=== PATIENT | female | born 1955 | race Caucasian/White ===

== ENCOUNTER 2021-04-29 19:55 | Inpatient (IN) | payer OTHER ==
[~2021-04-29] VITALS: Ht 170.2 cm
[~2021-04-29 19:55] MED LIST: ACET-285 PO; GABA100C9 PO
[2021-04-29 23:27] LABS: Basophils # (auto) 0 10 ^3/uL (0-0.2); Basophils % (auto) 0.8 % (0.0-2.0); Eosinophils # (auto) 0.1 10 ^3/uL (0-0.8); Eosinophils % (auto) 1.2 % (0.0-7.0); Hematocrit 41.1 % (36.0-46.0); Hemoglobin 13.1 g/dL (12.2-16.2); Lymphocytes % (auto) 16.1 % (10.0-50.0); Mean Corpuscular Hemoglobin 28.3 pg (28.0-32.0); Mean Corpuscular Hgb Conc. 31.7 g/dL (32.0-36.0); Mean Corpuscular Volume 89.1 fL (80.0-100.0); Monocytes # (auto) 0.7 10 ^3/uL (0-1.3); Monocytes % (auto) 12.1 % (0.0-12.0); Neutrophils # (auto) 4.3 10 ^3/uL (1.6-8.6); Neutrophils % (auto) 69.8 % (37.0-80.0); Red Blood Cells 4.62 10^6/uL (4.0-5.20); Red Cell Distribution Width 17.7 % (11.8-14.3); White Blood Cell 6.2 10^3/uL (4.4-10.8)
[2021-04-29 23:41] LABS: INR 1.11 (0.9-1.15)
[2021-04-29 23:50] LABS: Albumin 2.1 g/dL (3.4-5.0); BUN/Creatinine Ratio 18.3; Calcium 8.5 mg/dL (8.5-10.1); Magnesium 2.2 mg/dL (1.6-2.6)
[2021-04-29 23:52] LABS: Potassium 6.2 mmol/L (3.5-5.1)
[2021-04-29 23:54] LABS: Bilirubin, Total 0.4 mg/dL (0.2-1.0); Total Protein 6.2 g/dL (6.4-8.2)
[2021-04-30] MEDS ORDERED: ENOXAPARIN SOD 100 MG/1 ML SYRINGE SC ONE
[2021-04-30] MEDS ORDERED: ALBUTEROL SULF 2.5 MG/0.5ML(0.5%) NEB SOLN NEB ONE
[2021-04-30] MEDS ORDERED: ASPirin 325 MG TAB PO ONE
[2021-04-30] MEDS ORDERED: SODIUM BICARBONATE 8.4% INJ 50ML SYRINGE IV ONE
[2021-04-30 02:45] LABS: Urine Amorphous Crystal FEW /hpf (None Seen); Urine Bacteria FEW /hpf (None Seen); Urine Blood TRACE /uL (Negative); Urine Hyaline Cast FEW /lpf (0 - 2); Urine Specific Gravity 1.018 (1.001-1.035); Urine WBC 2 /hpf (0 - 5)
[2021-04-30] MEDS ORDERED: FUROSEMIDE 40 MG/4 ML VIAL IV ONE (03:15)
[2021-04-30] MEDS ORDERED: NITROGLYCERIN 0.4 MG SL TAB SL PRN (06:45)
[2021-04-30] MEDS ORDERED: DEXTROSE (50%) 50ML SYRG IV PRN (06:45)
[2021-04-30] MEDS ORDERED: MORPHINE SULFATE INJECTION 2 MG/ML SYRG IV PRN (06:45)
[2021-04-30 08:13] LABS: BUN/Creatinine Ratio 18.4; Calcium 8.3 mg/dL (8.5-10.1)
[2021-04-30 08:28] LABS: Potassium 5.6 mmol/L (3.5-5.1)
[2021-04-30] MEDS: ACCU-CHEK COMFORT CURVE STRIP VI SCH ×4 (08:52→22:37)
[2021-04-30] MEDS: InsuLIN REG 1unit/0.01ml Soln (100units/ml) SC SCH ×4 (08:53→22:38)
[2021-04-30 09:29] LABS: Cholesterol 87 mg/dL (< 200); HDL Cholesterol 41 mg/dL (40-59); LDL Cholesterol 36 mg/dL (< 100); Triglycerides 123 mg/dL (< 150)
[2021-04-30] MEDS ORDERED: BUMETANIDE 2.5mg/10ml (0.25 mg/ml) INJ IV ONE (10:00)
[2021-04-30] MEDS ORDERED: ALBUMIN 25% 100 ML IV ONE (10:00)
[2021-04-30] MEDS: PANTOPRAZOLE 40 MG TAB PO SCH (10:46)
[2021-04-30] MEDS: METOPROLOL SUCCINATE XL 50 MG TAB PO SCH (10:47)
[2021-04-30 12:30] VITALS: BP 151/69
[2021-04-30 12:49] VITALS: BP 146/56
[2021-04-30 12:49] LABS: Alcohol, Urine < 3.0 mg/dL (0-10); Amphetamine Screen, Urine NEGATIVE (NEGATIVE); Barbiturate Scree,Urine NEGATIVE (NEGATIVE); Benzodiazephine Screen, Urine NEGATIVE (NEGATIVE); Cannabinoid Screen, Urine NEGATIVE (NEGATIVE); Cocaine Screen, Urine NEGATIVE (NEGATIVE); Opiate Scree,Urine NEGATIVE (NEGATIVE); Phencyclidine Screen, Urine NEGATIVE (NEGATIVE)
[2021-04-30 14:46] LABS: Magnesium 2.1 mg/dL (1.6-2.6)
[2021-04-30 14:48] VITALS: BP 146/56
[2021-04-30 14:49] LABS: Phosphorus 4.5 mg/dL (2.5-4.90)
[2021-04-30 14:56] LABS: Protein, Urine 351.4 mg/dL (0.0-11.9)
[2021-04-30 16:45] VITALS: BP 138/59
[2021-04-30] MEDS: FUROSEMIDE 20 MG/2 ML VIAL IV SCH (18:37)
[2021-04-30] MEDS ORDERED: FURO20TA3 PO (19:22)
[2021-04-30] MEDS ORDERED: SIMV-13 PO (19:22)
[2021-04-30] MEDS ORDERED: METO-158 PO (19:22)
[2021-04-30] MEDS ORDERED: DEXTROSE (50%) 50ML SYRG IV ONE ×2 (20:45)
[2021-04-30] MEDS ORDERED: CALCIUM GLUC 1,000mg/50ml-NS 50 ML IV ONE (20:45)
[2021-04-30] MEDS ORDERED: SODIUM BICARBONATE 8.4 % INJ 50ML VIAL IV ONE (20:45)
[2021-04-30] MEDS ORDERED: SODIUM ZIRCONIUM CYCL 10 GM PAK PO ONE ×2 (20:45)
[2021-04-30] MEDS ORDERED: InsuLIN REG 1unit/0.01ml Soln (100units/ml) IV ONE ×2 (20:45)
[2021-04-30 22:00] VITALS: BP 146/67
[2021-04-30] MEDS: ATORVASTATIN 20 MG TAB PO SCH (22:37)
[2021-05-01] MEDS: ONDANSETRON HCL 4 MG/2 ML VIAL IV PRN (02:13)
[2021-05-01 06:00] VITALS: BP 150/73
[2021-05-01] MEDS: FUROSEMIDE 20 MG/2 ML VIAL IV SCH (06:30)
[2021-05-01] MEDS: ACCU-CHEK COMFORT CURVE STRIP VI SCH ×4 (06:30→21:10)
[2021-05-01] MEDS: InsuLIN REG 1unit/0.01ml Soln (100units/ml) SC SCH ×4 (06:31→21:10)
[2021-05-01] MEDS: SODIUM ZIRCONIUM CYCL 10 GM PAK PO SCH ×3 (07:30→21:11)
[2021-05-01 07:39] LABS: Basophils # (auto) 0 10 ^3/uL (0-0.2); Basophils % (auto) 0.2 % (0.0-2.0); Eosinophils # (auto) 0 10 ^3/uL (0-0.8); Eosinophils % (auto) 0.2 % (0.0-7.0); Hematocrit 43.5 % (36.0-46.0); Hemoglobin 13.2 g/dL (12.2-16.2); Lymphocytes # (auto) 0.4 10 ^3/uL (0.4-5.4); Lymphocytes % (auto) 4.1 % (10.0-50.0); Mean Corpuscular Hemoglobin 27.6 pg (28.0-32.0); Mean Corpuscular Hgb Conc. 30.2 g/dL (32.0-36.0); Mean Corpuscular Volume 91.3 fL (80.0-100.0); Monocytes # (auto) 0.7 10 ^3/uL (0-1.3); Monocytes % (auto) 6.4 % (0.0-12.0); Neutrophils # (auto) 9.8 10 ^3/uL (1.6-8.6); Neutrophils % (auto) 89.1 % (37.0-80.0); Nucleated Red Blood Cells % 0.1 %; Red Blood Cells 4.77 10^6/uL (4.0-5.20)
[2021-05-01 08:07] LABS: Albumin 2.2 g/dL (3.4-5.0); BUN/Creatinine Ratio 20.5; Bilirubin, Total 0.4 mg/dL (0.2-1.0); Calcium 8.2 mg/dL (8.5-10.1); Total Protein 6.4 g/dL (6.4-8.2)
[2021-05-01 08:26] LABS: Potassium 6.2 mmol/L (3.5-5.1)
[2021-05-01 09:00] VITALS: BP 148/65
[2021-05-01] MEDS: ASPirin 81 mg TAB PO SCH (09:28)
[2021-05-01] MEDS: PANTOPRAZOLE 40 MG TAB PO SCH (09:28)
[2021-05-01] MEDS: METOPROLOL SUCCINATE XL 50 MG TAB PO SCH (09:29)
[2021-05-01] MEDS ORDERED: ENOXAPARIN SOD 150 MG/1 ML SYRINGE SC SCH (10:00)
[2021-05-01] MEDS ORDERED: ASPirin 81 mg TAB PO SCH (10:00)
[2021-05-01] MEDS ORDERED: CALCIUM GLUC 1,000mg/50ml-NS 50 ML IV ONE (12:00)
[2021-05-01] MEDS ORDERED: InsuLIN REG 1unit/0.01ml Soln (100units/ml) IV ONE (12:00)
[2021-05-01] MEDS ORDERED: SODIUM BICARBONATE 8.4% INJ 50ML SYRINGE IV ONE (12:00)
[2021-05-01] MEDS ORDERED: DEXTROSE (50%) 50ML SYRG IV ONE (12:00)
[2021-05-01] MEDS ORDERED: ERGOCALCIFEROL 50,000 UNIT(1.25MG) CAP PO SCH (12:15)
[2021-05-01] MEDS ORDERED: ERGOCALCIFEROL 50,000 UNIT(1.25MG) CAP PO ONE (14:00)
[2021-05-01] MEDS ORDERED: BUMETANIDE 2.5mg/10ml (0.25 mg/ml) INJ IV ONE (14:30)
[2021-05-01] MEDS ORDERED: ALBUTEROL SULF 2.5 MG/0.5ML(0.5%) NEB SOLN NEB ONE (14:30)
[2021-05-01 17:03] VITALS: BP 114/44
[2021-05-01] MEDS ORDERED: FUROSEMIDE 20 MG/2 ML VIAL IV SCH (18:00)
[2021-05-01] MEDS: ATORVASTATIN 20 MG TAB PO SCH (21:11)
[2021-05-01 22:00] VITALS: BP 122/54
[2021-05-02] MEDS: ACETAMINOPHEN 325 MG TAB PO PRN (01:36)
[2021-05-02 05:00] VITALS: BP 119/57
[2021-05-02] MEDS: ACCU-CHEK COMFORT CURVE STRIP VI SCH ×4 (05:56→20:39)
[2021-05-02] MEDS: SODIUM ZIRCONIUM CYCL 10 GM PAK PO SCH ×3 (05:56→22:55)
[2021-05-02] MEDS: InsuLIN REG 1unit/0.01ml Soln (100units/ml) SC SCH ×4 (05:57→20:38)
[2021-05-02 07:19] LABS: Basophils # (auto) 0.1 10 ^3/uL (0-0.2); Basophils % (auto) 0.7 % (0.0-2.0); Eosinophils # (auto) 0.1 10 ^3/uL (0-0.8); Eosinophils % (auto) 1.6 % (0.0-7.0); Hematocrit 38.4 % (36.0-46.0); Hemoglobin 11.9 g/dL (12.2-16.2); Lymphocytes # (auto) 0.6 10 ^3/uL (0.4-5.4); Lymphocytes % (auto) 7.4 % (10.0-50.0); Mean Corpuscular Hemoglobin 28.4 pg (28.0-32.0); Mean Corpuscular Hgb Conc. 31.1 g/dL (32.0-36.0); Mean Corpuscular Volume 91.4 fL (80.0-100.0); Monocytes # (auto) 0.7 10 ^3/uL (0-1.3); Monocytes % (auto) 9.1 % (0.0-12.0); Neutrophils # (auto) 6.7 10 ^3/uL (1.6-8.6); Neutrophils % (auto) 81.2 % (37.0-80.0); Nucleated Red Blood Cells % 0.1 %; Red Blood Cells 4.21 10^6/uL (4.0-5.20); Red Cell Distribution Width 18.1 % (11.8-14.3); White Blood Cell 8.2 10^3/uL (4.4-10.8)
[2021-05-02 07:34] LABS: BUN/Creatinine Ratio 18.1; Calcium 8.2 mg/dL (8.5-10.1); Magnesium 2.3 mg/dL (1.6-2.6)
[2021-05-02 07:37] LABS: Potassium 5.6 mmol/L (3.5-5.1)
[2021-05-02 09:00] VITALS: BP 112/45
[2021-05-02] MEDS ORDERED: FUROSEMIDE 40 MG/4 ML VIAL IV SCH (09:00)
[2021-05-02] MEDS: METOPROLOL SUCCINATE XL 50 MG TAB PO SCH (10:00)
[2021-05-02] MEDS: ASPirin 81 mg TAB PO SCH (10:00)
[2021-05-02] MEDS: ENOXAPARIN SOD 60 MG/0.6 ML SYRINGE SC SCH (10:00)
[2021-05-02] MEDS: ALBUMIN 25% 50 ML IV SCH ×2 (11:45→19:59)
[2021-05-02 13:00] VITALS: BP 98/38
[2021-05-02 17:26] VITALS: BP 123/55
[2021-05-02] MEDS: FUROSEMIDE 40 MG/4 ML VIAL IV SCH (18:00)
[2021-05-02] MEDS: ATORVASTATIN 20 MG TAB PO SCH (20:40)
[2021-05-02 22:00] VITALS: BP 151/64
[2021-05-03] MEDS: ALBUMIN 25% 50 ML IV SCH (04:27)
[2021-05-03 05:00] VITALS: BP 160/71
[2021-05-03] MEDS: ACCU-CHEK COMFORT CURVE STRIP VI SCH ×4 (05:22→21:50)
[2021-05-03] MEDS: InsuLIN REG 1unit/0.01ml Soln (100units/ml) SC SCH ×4 (05:22→21:53)
[2021-05-03] MEDS: FUROSEMIDE 40 MG/4 ML VIAL IV SCH (05:23)
[2021-05-03 05:56] LABS: BUN/Creatinine Ratio 19.2; Calcium 8.4 mg/dL (8.5-10.1)
[2021-05-03 06:16] LABS: Potassium 5.6 mmol/L (3.5-5.1)
[2021-05-03] MEDS ORDERED: SODIUM ZIRCONIUM CYCL 10 GM PAK PO ONE (06:45)
[2021-05-03 09:00] VITALS: BP 144/70
[2021-05-03] MEDS: ASPirin 81 mg TAB PO SCH (09:32)
[2021-05-03] MEDS: ENOXAPARIN SOD 60 MG/0.6 ML SYRINGE SC SCH (09:33)
[2021-05-03] MEDS: METOPROLOL SUCCINATE XL 50 MG TAB PO SCH (09:33)
[2021-05-03] MEDS: ACETAMINOPHEN 325 MG TAB PO PRN (10:00)
[2021-05-03 13:00] VITALS: BP 130/67
[2021-05-03] MEDS ORDERED: SODIUM ZIRCONIUM CYCL 10 GM PAK PO SCH (14:00)
[2021-05-03 14:37] VITALS: BP 144/70
[2021-05-03] MEDS: DOBUTamine 1000MCG/ML 250 ML IV SCH (15:15)
[2021-05-03 17:00] VITALS: BP 152/71
[2021-05-03] MEDS: ATORVASTATIN 20 MG TAB PO SCH (21:49)
[2021-05-03 22:00] VITALS: BP 152/68
[2021-05-04] MEDS: DOBUTamine 1000MCG/ML 250 ML IV SCH ×3 (00:36→18:00)
[2021-05-04 05:00] VITALS: BP 150/65
[2021-05-04] MEDS: ACETAMINOPHEN 325 MG TAB PO PRN (05:26)
[2021-05-04] MEDS: ACCU-CHEK COMFORT CURVE STRIP VI SCH ×4 (06:09→22:13)
[2021-05-04] MEDS: InsuLIN REG 1unit/0.01ml Soln (100units/ml) SC SCH ×4 (06:10→22:20)
[2021-05-04 07:05] LABS: BUN/Creatinine Ratio 21.4; Calcium 8.2 mg/dL (8.5-10.1); Potassium 5.4 mmol/L (3.5-5.1)
[2021-05-04] MEDS ORDERED: FUROSEMIDE 40 MG/4 ML VIAL IV ONE (08:15)
[2021-05-04 09:00] VITALS: BP 146/62
[2021-05-04] MEDS: FAMOTIDINE 20 MG TAB PO SCH (09:12)
[2021-05-04] MEDS: ENOXAPARIN SOD 60 MG/0.6 ML SYRINGE SC SCH (09:12)
[2021-05-04] MEDS: ASPirin 81 mg TAB PO SCH (09:12)
[2021-05-04] MEDS ORDERED: SODIUM ZIRCONIUM CYCL 10 GM PAK PO ONE (12:00)
[2021-05-04 13:00] VITALS: BP 140/66
[2021-05-04 16:35] VITALS: BP 131/93
[2021-05-04 22:00] VITALS: BP 161/69
[2021-05-04] MEDS: ATORVASTATIN 20 MG TAB PO SCH (22:13)
[2021-05-05] MEDS: DOBUTamine 1000MCG/ML 250 ML IV SCH ×3 (02:58→23:00)
[2021-05-05] MEDS: InsuLIN REG 1unit/0.01ml Soln (100units/ml) SC SCH ×4 (06:31→22:15)
[2021-05-05] MEDS: ACCU-CHEK COMFORT CURVE STRIP VI SCH ×4 (06:31→22:15)
[2021-05-05 09:00] VITALS: BP 159/74
[2021-05-05] MEDS: ENOXAPARIN SOD 60 MG/0.6 ML SYRINGE SC SCH (09:50)
[2021-05-05] MEDS: FUROSEMIDE 40 MG/4 ML VIAL IV SCH (09:50)
[2021-05-05] MEDS: FAMOTIDINE 20 MG TAB PO SCH (09:50)
[2021-05-05] MEDS: ASPirin 81 mg TAB PO SCH (09:53)
[2021-05-05 10:23] LABS: BUN/Creatinine Ratio 27.2; Calcium 8.5 mg/dL (8.5-10.1); Potassium 5.5 mmol/L (3.5-5.1)
[2021-05-05] MEDS: hydrALAZINE HCL 20 MG/ML VL IV PRN ×2 (12:48→22:15)
[2021-05-05 13:00] VITALS: BP 170/72
[2021-05-05] MEDS ORDERED: SODIUM ZIRCONIUM CYCL 10 GM PAK PO ONE (13:30)
[2021-05-05] MEDS: ALBUTEROL SULF 2.5 MG/0.5ML(0.5%) NEB SOLN NEB PRN (15:33)
[2021-05-05] MEDS: IPRATROPIUM BROM 0.5 MG/2.5ML INH SOL NEB PRN (15:33)
[2021-05-05] MEDS: LORazepam 2MG/ML-1ML VIAL IV PRN ×2 (15:33→22:15)
[2021-05-05 17:00] VITALS: BP 143/68
[2021-05-05 22:00] VITALS: BP 180/75
[2021-05-05] MEDS: ATORVASTATIN 20 MG TAB PO SCH (22:14)
[2021-05-06] VITALS (7 sets, daily range): BP systolic 111–165; BP diastolic 55–94
[2021-05-06] MEDS: hydrALAZINE HCL 20 MG/ML VL IV PRN (05:25)
[2021-05-06] MEDS: LORazepam 2MG/ML-1ML VIAL IV PRN ×3 (05:25→21:19)
[2021-05-06 06:21] LABS: Basophils # (auto) 0 10 ^3/uL (0-0.2); Basophils % (auto) 0.4 % (0.0-2.0); Eosinophils # (auto) 0 10 ^3/uL (0-0.8); Eosinophils % (auto) 0.9 % (0.0-7.0); Hematocrit 36.6 % (36.0-46.0); Hemoglobin 11.7 g/dL (12.2-16.2); Lymphocytes # (auto) 0.4 10 ^3/uL (0.4-5.4); Lymphocytes % (auto) 8.8 % (10.0-50.0); Mean Corpuscular Hemoglobin 28.3 pg (28.0-32.0); Mean Corpuscular Hgb Conc. 31.8 g/dL (32.0-36.0); Mean Corpuscular Volume 88.8 fL (80.0-100.0); Monocytes # (auto) 0.5 10 ^3/uL (0-1.3); Monocytes % (auto) 11.2 % (0.0-12.0); Neutrophils # (auto) 3.9 10 ^3/uL (1.6-8.6); Neutrophils % (auto) 78.7 % (37.0-80.0); Nucleated Red Blood Cells % 0.3 %; Red Blood Cells 4.12 10^6/uL (4.0-5.20); Red Cell Distribution Width 17.3 % (11.8-14.3); White Blood Cell 4.9 10^3/uL (4.4-10.8)
[2021-05-06 06:37] LABS: Potassium 5.5 mmol/L (3.5-5.1)
[2021-05-06] MEDS: ACCU-CHEK COMFORT CURVE STRIP VI SCH ×4 (06:50→21:26)
[2021-05-06] MEDS: InsuLIN REG 1unit/0.01ml Soln (100units/ml) SC SCH ×4 (06:50→21:26)
[2021-05-06 06:55] LABS: BUN/Creatinine Ratio 28.7; Bilirubin, Total 0.6 mg/dL (0.2-1.0); Calcium 8.8 mg/dL (8.5-10.1); Total Protein 5.9 g/dL (6.4-8.2)
[2021-05-06] MEDS: FAMOTIDINE 20 MG TAB PO SCH (10:00)
[2021-05-06] MEDS: ASPirin 81 mg TAB PO SCH (10:00)
[2021-05-06] MEDS: DOBUTamine 1000MCG/ML 250 ML IV SCH ×2 (10:06→18:33)
[2021-05-06] MEDS: ENOXAPARIN SOD 60 MG/0.6 ML SYRINGE SC SCH (10:07)
[2021-05-06] MEDS: FUROSEMIDE 40 MG/4 ML VIAL IV SCH (10:07)
[2021-05-06] MEDS: ALBUTEROL SULF 2.5 MG/0.5ML(0.5%) NEB SOLN NEB PRN ×2 (11:10→18:05)
[2021-05-06] MEDS: IPRATROPIUM BROM 0.5 MG/2.5ML INH SOL NEB PRN ×2 (11:10→18:05)
[2021-05-06] MEDS ORDERED: SODIUM ZIRCONIUM CYCL 10 GM PAK PO ONE (11:45)
[2021-05-06] MEDS: ATORVASTATIN 20 MG TAB PO SCH (21:26)
[2021-05-07] MEDS: IPRATROPIUM BROM 0.5 MG/2.5ML INH SOL NEB PRN ×3 (00:13→20:12)
[2021-05-07] MEDS: ALBUTEROL SULF 2.5 MG/0.5ML(0.5%) NEB SOLN NEB PRN ×3 (00:13→20:12)
[2021-05-07] MEDS: LORazepam 2MG/ML-1ML VIAL IV PRN ×3 (03:21→21:15)
[2021-05-07] MEDS: DOBUTamine 1000MCG/ML 250 ML IV SCH ×2 (04:21→13:08)
[2021-05-07 05:00] VITALS: BP 125/56
[2021-05-07 06:04] LABS: Calcium 8.7 mg/dL (8.5-10.1); Potassium 5.5 mmol/L (3.5-5.1)
[2021-05-07 06:04] LABS: Basophils # (auto) 0 10 ^3/uL (0-0.2); Basophils % (auto) 0.9 % (0.0-2.0); Eosinophils # (auto) 0.1 10 ^3/uL (0-0.8); Eosinophils % (auto) 2.6 % (0.0-7.0); Hemoglobin 11.3 g/dL (12.2-16.2); Lymphocytes # (auto) 0.5 10 ^3/uL (0.4-5.4); Lymphocytes % (auto) 10.4 % (10.0-50.0); Mean Corpuscular Hemoglobin 28.2 pg (28.0-32.0); Mean Corpuscular Hgb Conc. 32.4 g/dL (32.0-36.0); Mean Corpuscular Volume 87.2 fL (80.0-100.0); Monocytes # (auto) 0.7 10 ^3/uL (0-1.3); Monocytes % (auto) 15.2 % (0.0-12.0); Neutrophils # (auto) 3.2 10 ^3/uL (1.6-8.6); Neutrophils % (auto) 70.9 % (37.0-80.0); Nucleated Red Blood Cells % 0.2 %; Red Blood Cells 4.01 10^6/uL (4.0-5.20); Red Cell Distribution Width 17.3 % (11.8-14.3); White Blood Cell 4.6 10^3/uL (4.4-10.8)
[2021-05-07 06:07] LABS: BUN/Creatinine Ratio 30.9
[2021-05-07] MEDS: InsuLIN REG 1unit/0.01ml Soln (100units/ml) SC SCH ×4 (06:22→21:13)
[2021-05-07] MEDS: ACCU-CHEK COMFORT CURVE STRIP VI SCH ×4 (06:22→21:14)
[2021-05-07 09:00] VITALS: BP 158/65
[2021-05-07] MEDS: FUROSEMIDE 40 MG/4 ML VIAL IV SCH (09:03)
[2021-05-07] MEDS: ASPirin 81 mg TAB PO SCH (09:03)
[2021-05-07] MEDS: FAMOTIDINE 20 MG TAB PO SCH (09:03)
[2021-05-07] MEDS: ENOXAPARIN SOD 60 MG/0.6 ML SYRINGE SC SCH (09:03)
[2021-05-07 12:54] VITALS: BP 155/73
[2021-05-07] MEDS ORDERED: SODIUM ZIRCONIUM CYCL 10 GM PAK PO ONE (14:21)
[2021-05-07 17:13] VITALS: BP 135/64
[2021-05-07] MEDS: ATORVASTATIN 20 MG TAB PO SCH (21:14)
[2021-05-07] MEDS: METOPROLOL TARTRATE 25 MG TAB PO SCH (21:14)
[2021-05-07 22:00] VITALS: BP 161/77
[2021-05-08 05:12] VITALS: BP 154/74
[2021-05-08] MEDS: InsuLIN REG 1unit/0.01ml Soln (100units/ml) SC SCH ×4 (06:10→22:00)
[2021-05-08] MEDS: ACCU-CHEK COMFORT CURVE STRIP VI SCH ×4 (06:10→22:01)
[2021-05-08 06:27] LABS: BUN/Creatinine Ratio 32.1; Calcium 8.8 mg/dL (8.5-10.1)
[2021-05-08 07:02] LABS: Potassium 5.6 mmol/L (3.5-5.1)
[2021-05-08] MEDS: LORazepam 2MG/ML-1ML VIAL IV PRN ×2 (07:55→22:02)
[2021-05-08 09:00] VITALS: BP 197/71
[2021-05-08] MEDS ORDERED: BUMETANIDE 2.5mg/10ml (0.25 mg/ml) INJ IV ONE (09:45)
[2021-05-08] MEDS: DOBUTamine 1000MCG/ML 250 ML IV SCH ×3 (09:45→20:54)
[2021-05-08] MEDS: SODIUM ZIRCONIUM CYCL 10 GM PAK PO SCH (10:00)
[2021-05-08] MEDS: ASPirin 81 mg TAB PO SCH (10:19)
[2021-05-08] MEDS: ENOXAPARIN SOD 60 MG/0.6 ML SYRINGE SC SCH (10:20)
[2021-05-08] MEDS: CHOLECALCIFEROL (VITD3) 2,000 UNIT CAP/TAB PO SCH (10:20)
[2021-05-08] MEDS: METOPROLOL TARTRATE 25 MG TAB PO SCH ×2 (10:20→22:00)
[2021-05-08] MEDS: FAMOTIDINE 20 MG TAB PO SCH (10:20)
[2021-05-08 13:00] VITALS: BP 129/60
[2021-05-08 17:00] VITALS: BP 176/73
[2021-05-08 22:00] VITALS: BP 134/60
[2021-05-08] MEDS: ATORVASTATIN 20 MG TAB PO SCH (22:00)
[2021-05-09 05:00] VITALS: BP 136/57
[2021-05-09] MEDS: DOBUTamine 1000MCG/ML 250 ML IV SCH (05:05)
[2021-05-09] MEDS: InsuLIN REG 1unit/0.01ml Soln (100units/ml) SC SCH ×4 (06:20→21:56)
[2021-05-09] MEDS: ACCU-CHEK COMFORT CURVE STRIP VI SCH ×4 (06:21→21:57)
[2021-05-09] MEDS: LORazepam 2MG/ML-1ML VIAL IV PRN ×2 (08:00→21:56)
[2021-05-09 09:00] VITALS: BP 171/74
[2021-05-09 09:11] LABS: BUN/Creatinine Ratio 32.3; Calcium 8.5 mg/dL (8.5-10.1); Potassium 5.3 mmol/L (3.5-5.1)
[2021-05-09] MEDS: SODIUM ZIRCONIUM CYCL 10 GM PAK PO SCH (10:00)
[2021-05-09] MEDS: ASPirin 81 mg TAB PO SCH (10:09)
[2021-05-09] MEDS: BUMETANIDE 2.5mg/10ml (0.25 mg/ml) INJ IV SCH (10:09)
[2021-05-09] MEDS: METOPROLOL TARTRATE 25 MG TAB PO SCH ×2 (10:10→21:56)
[2021-05-09] MEDS: CHOLECALCIFEROL (VITD3) 2,000 UNIT CAP/TAB PO SCH (10:11)
[2021-05-09] MEDS: ENOXAPARIN SOD 60 MG/0.6 ML SYRINGE SC SCH (10:11)
[2021-05-09] MEDS: FAMOTIDINE 20 MG TAB PO SCH (10:11)
[2021-05-09 13:00] VITALS: BP 166/66
[2021-05-09 17:00] VITALS: BP 154/63
[2021-05-09] MEDS: ONDANSETRON HCL 4 MG/2 ML VIAL IV PRN (21:56)
[2021-05-09] MEDS: TEMAZEPAM 15 MG CAP PO PRN (21:57)
[2021-05-09] MEDS: ATORVASTATIN 20 MG TAB PO SCH (21:57)
[2021-05-09 22:11] VITALS: BP 167/72
[2021-05-10 05:08] VITALS: BP 140/54
[2021-05-10] MEDS: ACCU-CHEK COMFORT CURVE STRIP VI SCH ×4 (06:00→22:44)
[2021-05-10] MEDS: InsuLIN REG 1unit/0.01ml Soln (100units/ml) SC SCH ×4 (06:00→22:00)
[2021-05-10 06:11] LABS: BUN/Creatinine Ratio 34.9; Calcium 8.7 mg/dL (8.5-10.1); Potassium 5.2 mmol/L (3.5-5.1)
[2021-05-10 09:00] VITALS: BP 182/69
[2021-05-10] MEDS: ASPirin 81 mg TAB PO SCH (10:00)
[2021-05-10] MEDS: SODIUM ZIRCONIUM CYCL 10 GM PAK PO SCH (10:00)
[2021-05-10] MEDS: BUMETANIDE 2.5mg/10ml (0.25 mg/ml) INJ IV SCH (10:10)
[2021-05-10] MEDS: FAMOTIDINE 20 MG TAB PO SCH (10:11)
[2021-05-10] MEDS: METOPROLOL TARTRATE 25 MG TAB PO SCH (10:11)
[2021-05-10] MEDS: CHOLECALCIFEROL (VITD3) 2,000 UNIT CAP/TAB PO SCH (10:18)
[2021-05-10] MEDS: ENOXAPARIN SOD 60 MG/0.6 ML SYRINGE SC SCH (10:19)
[2021-05-10 13:00] VITALS: BP 151/77
[2021-05-10 17:00] VITALS: BP 188/81
[2021-05-10] MEDS: ACETAMINOPHEN 325 MG TAB PO PRN (19:01)
[2021-05-10 22:00] VITALS: BP 158/71
[2021-05-10] MEDS: ATORVASTATIN 20 MG TAB PO SCH (22:44)
[2021-05-10] MEDS: METOPROLOL TARTRATE 50 MG TAB PO SCH (22:45)
[2021-05-10 23:32] LABS: Urine Amorphous Crystal FEW /hpf (None Seen); Urine Bacteria MANY /hpf (None Seen); Urine Blood 3+ /uL (Negative); Urine Mucus MANY (None Seen); Urine Specific Gravity 1.017 (1.001-1.035); Urine WBC 118 /hpf (0 - 5); Urine WBC Clumps PRESENT /hpf (None Seen)
[2021-05-11 05:00] VITALS: BP 161/66
[2021-05-11 06:36] LABS: BUN/Creatinine Ratio 36.7; Potassium 5.5 mmol/L (3.5-5.1)
[2021-05-11] MEDS: InsuLIN REG 1unit/0.01ml Soln (100units/ml) SC SCH ×4 (06:50→22:00)
[2021-05-11] MEDS: ACCU-CHEK COMFORT CURVE STRIP VI SCH ×4 (06:50→22:31)
[2021-05-11] MEDS: ACETAMINOPHEN 325 MG TAB PO PRN ×2 (06:52→22:36)
[2021-05-11] MEDS: hydrALAZINE HCL 20 MG/ML VL IV PRN ×2 (07:01→22:33)
[2021-05-11 09:00] VITALS: BP 129/47
[2021-05-11] MEDS ORDERED: levoFLOXacin 250 MG TAB PO ONE (09:00)
[2021-05-11] MEDS ORDERED: BUMETANIDE 2.5mg/10ml (0.25 mg/ml) INJ IV SCH ×2 (09:15→10:00)
[2021-05-11] MEDS: ASPirin 81 mg TAB PO SCH (11:24)
[2021-05-11] MEDS: METOPROLOL TARTRATE 50 MG TAB PO SCH ×2 (11:24→22:31)
[2021-05-11] MEDS: FAMOTIDINE 20 MG TAB PO SCH (11:25)
[2021-05-11] MEDS: CHOLECALCIFEROL (VITD3) 2,000 UNIT CAP/TAB PO SCH (11:25)
[2021-05-11] MEDS: SODIUM ZIRCONIUM CYCL 10 GM PAK PO SCH (11:25)
[2021-05-11] MEDS: ENOXAPARIN SOD 60 MG/0.6 ML SYRINGE SC SCH (11:25)
[2021-05-11 13:00] VITALS: BP 147/69
[2021-05-11] MEDS ORDERED: FLUDROCORTISONE ACETATE 0.1 MG TAB PO ONE (15:00)
[2021-05-11] MEDS: LORazepam 2MG/ML-1ML VIAL IV PRN ×2 (16:25→22:35)
[2021-05-11 17:00] VITALS: BP 133/62
[2021-05-11] MEDS: BUMETANIDE 2.5mg/10ml (0.25 mg/ml) INJ IV SCH (18:16)
[2021-05-11 22:00] VITALS: BP 177/87
[2021-05-11] MEDS: ATORVASTATIN 20 MG TAB PO SCH (22:30)
[2021-05-12] MEDS ORDERED: THROAT LOZENGES(CEPASTAT) MT PRN (01:45)
[2021-05-12 05:00] VITALS: BP 148/64
[2021-05-12] MEDS: BUMETANIDE 2.5mg/10ml (0.25 mg/ml) INJ IV SCH ×2 (06:05→17:38)
[2021-05-12 06:13] LABS: Calcium 8.5 mg/dL (8.5-10.1)
[2021-05-12 06:21] LABS: BUN/Creatinine Ratio 34.5
[2021-05-12 06:28] LABS: Potassium 5.6 mmol/L (3.5-5.1)
[2021-05-12] MEDS: ACCU-CHEK COMFORT CURVE STRIP VI SCH ×3 (06:50→16:49)
[2021-05-12] MEDS: InsuLIN REG 1unit/0.01ml Soln (100units/ml) SC SCH ×3 (06:51→16:49)
[2021-05-12 09:00] VITALS: BP 144/67
[2021-05-12] MEDS: SODIUM ZIRCONIUM CYCL 10 GM PAK PO SCH ×3 (09:45→20:25)
[2021-05-12] MEDS ORDERED: levoFLOXacin 250 MG TAB PO SCH (10:00)
[2021-05-12] MEDS ORDERED: FLUDROCORTISONE ACETATE 0.1 MG TAB PO SCH (10:00)
[2021-05-12] MEDS: ASPirin 81 mg TAB PO SCH (10:38)
[2021-05-12] MEDS: FAMOTIDINE 20 MG TAB PO SCH (10:39)
[2021-05-12] MEDS: METOPROLOL TARTRATE 50 MG TAB PO SCH ×2 (10:39→22:35)
[2021-05-12] MEDS: levoFLOXacin 500 MG TAB PO SCH (10:39)
[2021-05-12] MEDS: CHOLECALCIFEROL (VITD3) 2,000 UNIT CAP/TAB PO SCH (10:39)
[2021-05-12] MEDS: ENOXAPARIN SOD 60 MG/0.6 ML SYRINGE SC SCH (10:40)
[2021-05-12] MEDS ORDERED: BUMETANIDE 2.5mg/10ml (0.25 mg/ml) INJ IV ONE (12:00)
[2021-05-12 12:43] VITALS: BP 153/66
[2021-05-12 17:00] VITALS: BP 106/45
[2021-05-12 22:00] VITALS: BP 167/85
[2021-05-12] MEDS: ATORVASTATIN 20 MG TAB PO SCH (22:34)
[2021-05-12] MEDS: hydrALAZINE HCL 20 MG/ML VL IV PRN (22:36)
[2021-05-12] MEDS: LORazepam 2MG/ML-1ML VIAL IV PRN (22:57)
[2021-05-12] MEDS: ACETAMINOPHEN 325 MG TAB PO PRN (22:58)
[2021-05-13 04:58] VITALS: BP 168/90
[2021-05-13] MEDS: BUMETANIDE 2.5mg/10ml (0.25 mg/ml) INJ IV SCH ×2 (06:53→17:18)
[2021-05-13] MEDS: SODIUM ZIRCONIUM CYCL 10 GM PAK PO SCH ×3 (06:54→22:21)
[2021-05-13] MEDS: hydrALAZINE HCL 20 MG/ML VL IV PRN (06:55)
[2021-05-13 07:18] LABS: BUN/Creatinine Ratio 35.3
[2021-05-13 07:23] LABS: Potassium 5.6 mmol/L (3.5-5.1)
[2021-05-13 09:00] VITALS: BP 125/46
[2021-05-13] MEDS: levoFLOXacin 500 MG TAB PO SCH (09:14)
[2021-05-13] MEDS: ASPirin 81 mg TAB PO SCH (09:14)
[2021-05-13] MEDS: CHOLECALCIFEROL (VITD3) 2,000 UNIT CAP/TAB PO SCH (09:15)
[2021-05-13] MEDS: FAMOTIDINE 20 MG TAB PO SCH (09:15)
[2021-05-13] MEDS: METOPROLOL TARTRATE 50 MG TAB PO SCH ×2 (09:15→22:21)
[2021-05-13] MEDS: ENOXAPARIN SOD 60 MG/0.6 ML SYRINGE SC SCH (09:15)
[2021-05-13 12:53] VITALS: BP 146/55
[2021-05-13 16:46] VITALS: BP 142/60
[2021-05-13 22:00] VITALS: BP 179/91
[2021-05-13] MEDS: LORazepam 2MG/ML-1ML VIAL IV PRN (22:21)
[2021-05-13] MEDS: ATORVASTATIN 20 MG TAB PO SCH (22:21)
[2021-05-13] MEDS: ACETAMINOPHEN 325 MG TAB PO PRN (22:31)
[2021-05-14 05:59] VITALS: BP 132/67
[2021-05-14] MEDS: SODIUM ZIRCONIUM CYCL 10 GM PAK PO SCH ×3 (06:07→22:14)
[2021-05-14] MEDS: BUMETANIDE 2.5mg/10ml (0.25 mg/ml) INJ IV SCH ×2 (06:07→17:34)
[2021-05-14 09:00] VITALS: BP 153/64
[2021-05-14] MEDS: CHOLECALCIFEROL (VITD3) 2,000 UNIT CAP/TAB PO SCH (09:49)
[2021-05-14] MEDS: FAMOTIDINE 20 MG TAB PO SCH (09:50)
[2021-05-14] MEDS: levoFLOXacin 500 MG TAB PO SCH (09:50)
[2021-05-14] MEDS: METOPROLOL TARTRATE 50 MG TAB PO SCH ×2 (09:50→22:15)
[2021-05-14] MEDS: ASPirin 81 mg TAB PO SCH (09:51)
[2021-05-14] MEDS: ENOXAPARIN SOD 60 MG/0.6 ML SYRINGE SC SCH (09:51)
[2021-05-14 13:00] VITALS: BP 155/75
[2021-05-14 17:29] VITALS: BP 156/70
[2021-05-14] MEDS: hydrALAZINE HCL 20 MG/ML VL IV PRN (17:34)
[2021-05-14] MEDS: ATORVASTATIN 20 MG TAB PO SCH (22:14)
[2021-05-15] VITALS (8 sets, daily range): BP systolic 150–190; BP diastolic 64–84
[2021-05-15] MEDS: BUMETANIDE 2.5mg/10ml (0.25 mg/ml) INJ IV SCH ×2 (06:12→17:25)
[2021-05-15] MEDS: SODIUM ZIRCONIUM CYCL 10 GM PAK PO SCH (06:12)
[2021-05-15 06:18] LABS: Basophils # (auto) 0.1 10 ^3/uL (0-0.2); Basophils % (auto) 1.2 % (0.0-2.0); Eosinophils # (auto) 0.1 10 ^3/uL (0-0.8); Hematocrit 36.1 % (36.0-46.0); Hemoglobin 11.8 g/dL (12.2-16.2); Lymphocytes # (auto) 0.6 10 ^3/uL (0.4-5.4); Lymphocytes % (auto) 10.5 % (10.0-50.0); Mean Corpuscular Hemoglobin 28.1 pg (28.0-32.0); Mean Corpuscular Hgb Conc. 32.5 g/dL (32.0-36.0); Mean Corpuscular Volume 86.5 fL (80.0-100.0); Monocytes # (auto) 0.5 10 ^3/uL (0-1.3); Monocytes % (auto) 8.7 % (0.0-12.0); Neutrophils # (auto) 4.7 10 ^3/uL (1.6-8.6); Neutrophils % (auto) 78.6 % (37.0-80.0); Nucleated Red Blood Cells % 0.1 %; Red Blood Cells 4.18 10^6/uL (4.0-5.20); Red Cell Distribution Width 17.7 % (11.8-14.3); White Blood Cell 5.9 10^3/uL (4.4-10.8)
[2021-05-15 06:44] LABS: Potassium 4.8 mmol/L (3.5-5.1)
[2021-05-15 06:52] LABS: BUN/Creatinine Ratio 34.2; Calcium 9.1 mg/dL (8.5-10.1)
[2021-05-15] MEDS: ASPirin 81 mg TAB PO SCH (09:38)
[2021-05-15] MEDS: FAMOTIDINE 20 MG TAB PO SCH (09:39)
[2021-05-15] MEDS: ENOXAPARIN SOD 60 MG/0.6 ML SYRINGE SC SCH (09:39)
[2021-05-15] MEDS: CHOLECALCIFEROL (VITD3) 2,000 UNIT CAP/TAB PO SCH (09:39)
[2021-05-15] MEDS: levoFLOXacin 500 MG TAB PO SCH (09:39)
[2021-05-15] MEDS: METOPROLOL TARTRATE 50 MG TAB PO SCH ×2 (09:39→22:38)
[2021-05-15] MEDS: ATORVASTATIN 20 MG TAB PO SCH (22:37)
[2021-05-15] MEDS: hydrALAZINE HCL 20 MG/ML VL IV PRN (22:38)
[2021-05-16] MEDS: ACETAMINOPHEN 325 MG TAB PO PRN ×2 (03:20→23:41)
[2021-05-16] MEDS: LORazepam 2MG/ML-1ML VIAL IV PRN ×2 (03:20→23:41)
[2021-05-16 08:00] VITALS: BP 154/65
[2021-05-16 08:43] VITALS: BP 154/65
[2021-05-16] MEDS: METOPROLOL TARTRATE 50 MG TAB PO SCH ×2 (09:54→22:08)
[2021-05-16] MEDS: levoFLOXacin 500 MG TAB PO SCH (09:54)
[2021-05-16] MEDS: ASPirin 81 mg TAB PO SCH (09:54)
[2021-05-16] MEDS: FAMOTIDINE 20 MG TAB PO SCH (09:54)
[2021-05-16] MEDS: ENOXAPARIN SOD 60 MG/0.6 ML SYRINGE SC SCH (09:55)
[2021-05-16] MEDS: CHOLECALCIFEROL (VITD3) 2,000 UNIT CAP/TAB PO SCH (09:55)
[2021-05-16 10:49] LABS: BUN/Creatinine Ratio 30.5; Calcium 8.9 mg/dL (8.5-10.1); Potassium 4.4 mmol/L (3.5-5.1)
[2021-05-16 13:00] VITALS: BP 151/65
[2021-05-16 17:27] VITALS: BP 153/70
[2021-05-16 21:43] VITALS: BP 180/78
[2021-05-16] MEDS: ATORVASTATIN 20 MG TAB PO SCH (22:08)
[2021-05-16] MEDS: hydrALAZINE HCL 20 MG/ML VL IV PRN (23:42)
[2021-05-16 23:50] VITALS: BP 182/89
[2021-05-17 05:37] VITALS: BP 135/62
[2021-05-17 06:33] LABS: Potassium 4.2 mmol/L (3.5-5.1)
[2021-05-17 06:37] LABS: BUN/Creatinine Ratio 33.5; Magnesium 2.1 mg/dL (1.6-2.6)
[2021-05-17 08:30] VITALS: BP 130/53
[2021-05-17] MEDS: ASPirin 81 mg TAB PO SCH (10:38)
[2021-05-17] MEDS: levoFLOXacin 500 MG TAB PO SCH (10:38)
[2021-05-17] MEDS: FAMOTIDINE 20 MG TAB PO SCH (10:38)
[2021-05-17] MEDS: CHOLECALCIFEROL (VITD3) 2,000 UNIT CAP/TAB PO SCH (10:39)
[2021-05-17] MEDS: ENOXAPARIN SOD 60 MG/0.6 ML SYRINGE SC SCH (10:39)
[2021-05-17] MEDS: METOPROLOL TARTRATE 50 MG TAB PO SCH ×2 (10:40→21:32)
[2021-05-17] MEDS ORDERED: ASPI-378 PO (12:00)
[2021-05-17] MEDS ORDERED: LEVO500T31 PO (12:00)
[2021-05-17] MEDS ORDERED: FAMO20TA10 PO (12:00)
[2021-05-17] MEDS ORDERED: METO1TAB77 PO (12:00)
[2021-05-17] MEDS ORDERED: FURO1TAB31 PO (12:00)
[2021-05-17] MEDS ORDERED: CHOL20007 PO (12:00)
[2021-05-17] MEDS ORDERED: ALBUAER3 IN (12:01)
[2021-05-17] MEDS ORDERED: ALBUTEROL SULF 2.5 MG/0.5ML(0.5%) NEB SOLN NEB PRN (12:15)
[2021-05-17] MEDS ORDERED: IPRATROPIUM BROM 0.5 MG/2.5ML INH SOL NEB PRN (12:15)
[2021-05-17 12:30] VITALS: BP 162/65
[2021-05-17 17:00] VITALS: BP 165/73
[2021-05-17] MEDS: FUROSEMIDE 40 MG TAB PO SCH (18:35)
[2021-05-17] MEDS: ACETAMINOPHEN 325 MG TAB PO PRN (20:03)
[2021-05-17] MEDS: ATORVASTATIN 20 MG TAB PO SCH (21:31)
[2021-05-17] MEDS: LORazepam 0.5 MG TAB PO PRN (21:31)
[2021-05-17 22:00] VITALS: BP 174/69
[2021-05-18] VITALS (7 sets, daily range): BP systolic 0–150; BP diastolic 0–80
[2021-05-18] MEDS: hydrALAZINE HCL 20 MG/ML VL IV PRN (00:31)
[2021-05-18] MEDS: FUROSEMIDE 40 MG TAB PO SCH ×3 (06:00→18:36)
[2021-05-18] MEDS: ACETAMINOPHEN 325 MG TAB PO PRN ×2 (06:15→21:53)
[2021-05-18] MEDS: ENOXAPARIN SOD 60 MG/0.6 ML SYRINGE SC SCH (10:00)
[2021-05-18 10:07] LABS: BUN/Creatinine Ratio 32.6; Potassium 4.3 mmol/L (3.5-5.1)
[2021-05-18] MEDS: levoFLOXacin 500 MG TAB PO SCH (10:46)
[2021-05-18] MEDS: CHOLECALCIFEROL (VITD3) 2,000 UNIT CAP/TAB PO SCH (10:46)
[2021-05-18] MEDS: FAMOTIDINE 20 MG TAB PO SCH (10:46)
[2021-05-18] MEDS: ASPirin 81 mg TAB PO SCH (10:47)
[2021-05-18] MEDS: METOPROLOL TARTRATE 50 MG TAB PO SCH ×2 (10:48→21:54)
[2021-05-18] MEDS: LORazepam 0.5 MG TAB PO PRN (21:53)
[2021-05-18] MEDS: ATORVASTATIN 20 MG TAB PO SCH (21:53)
[2021-05-19 05:00] VITALS: BP 157/72
[2021-05-19] MEDS: FUROSEMIDE 40 MG TAB PO SCH ×2 (06:21→17:45)
[2021-05-19 09:00] VITALS: BP 141/71
[2021-05-19] MEDS: METOPROLOL TARTRATE 50 MG TAB PO SCH ×2 (11:13→22:20)
[2021-05-19] MEDS: ASPirin 81 mg TAB PO SCH (11:13)
[2021-05-19] MEDS: levoFLOXacin 500 MG TAB PO SCH (11:13)
[2021-05-19] MEDS: FAMOTIDINE 20 MG TAB PO SCH (11:14)
[2021-05-19] MEDS: ENOXAPARIN SOD 60 MG/0.6 ML SYRINGE SC SCH (11:14)
[2021-05-19] MEDS: CHOLECALCIFEROL (VITD3) 2,000 UNIT CAP/TAB PO SCH (11:14)
[2021-05-19] MEDS: hydrALAZINE HCL 20 MG/ML VL IV PRN (12:35)
[2021-05-19] MEDS: ACETAMINOPHEN 325 MG TAB PO PRN (12:40)
[2021-05-19 13:17] VITALS: BP 128/70
[2021-05-19 17:00] VITALS: BP 136/61
[2021-05-19 21:06] VITALS: BP 136/61
[2021-05-19 22:00] VITALS: BP 156/75
[2021-05-20] MEDS: LORazepam 0.5 MG TAB PO PRN ×2 (00:06→21:26)
[2021-05-20] MEDS: ATORVASTATIN 20 MG TAB PO SCH ×2 (00:07→21:25)
[2021-05-20] MEDS: ACETAMINOPHEN 325 MG TAB PO PRN ×3 (00:13→21:26)
[2021-05-20 05:00] VITALS: BP 134/70
[2021-05-20] MEDS: FUROSEMIDE 40 MG TAB PO SCH ×2 (06:33→17:29)
[2021-05-20 09:00] VITALS: BP 143/61
[2021-05-20] MEDS: ENOXAPARIN SOD 60 MG/0.6 ML SYRINGE SC SCH (09:27)
[2021-05-20] MEDS: CHOLECALCIFEROL (VITD3) 2,000 UNIT CAP/TAB PO SCH (09:28)
[2021-05-20] MEDS: METOPROLOL TARTRATE 50 MG TAB PO SCH ×2 (09:28→21:26)
[2021-05-20] MEDS: ASPirin 81 mg TAB PO SCH (09:28)
[2021-05-20] MEDS: levoFLOXacin 500 MG TAB PO SCH (09:28)
[2021-05-20] MEDS: FAMOTIDINE 20 MG TAB PO SCH (09:29)
[2021-05-20 10:49] LABS: BUN/Creatinine Ratio 33.3; Potassium 4.1 mmol/L (3.5-5.1)
[2021-05-20 13:00] VITALS: BP 123/74
[2021-05-20 17:00] VITALS: BP 145/61
[2021-05-20 22:00] VITALS: BP 162/73
[2021-05-21 05:00] VITALS: BP 149/68
[2021-05-21] MEDS: FUROSEMIDE 40 MG TAB PO SCH (05:30)
[2021-05-21 06:04] LABS: BUN/Creatinine Ratio 32.1; Calcium 8.9 mg/dL (8.5-10.1); Magnesium 1.9 mg/dL (1.6-2.6)
[2021-05-21 06:07] LABS: Basophils # (auto) 0.1 10 ^3/uL (0-0.2); Basophils % (auto) 0.8 % (0.0-2.0); Eosinophils # (auto) 0.2 10 ^3/uL (0-0.8); Eosinophils % (auto) 3.5 % (0.0-7.0); Hematocrit 34.1 % (36.0-46.0); Hemoglobin 11.2 g/dL (12.2-16.2); Lymphocytes # (auto) 0.7 10 ^3/uL (0.4-5.4); Lymphocytes % (auto) 9.5 % (10.0-50.0); Mean Corpuscular Hemoglobin 28.4 pg (28.0-32.0); Monocytes # (auto) 0.8 10 ^3/uL (0-1.3); Monocytes % (auto) 10.7 % (0.0-12.0); Neutrophils # (auto) 5.3 10 ^3/uL (1.6-8.6); Neutrophils % (auto) 75.5 % (37.0-80.0); Red Blood Cells 3.96 10^6/uL (4.0-5.20); Red Cell Distribution Width 17.9 % (11.8-14.3)
[2021-05-21 09:00] VITALS: BP 171/68
[2021-05-21] MEDS ORDERED: FUROSEMIDE 20 MG/2 ML VIAL IV ONE (09:15)
[2021-05-21] MEDS: levoFLOXacin 500 MG TAB PO SCH (09:52)
[2021-05-21] MEDS: METOPROLOL TARTRATE 50 MG TAB PO SCH ×2 (09:52→22:52)
[2021-05-21] MEDS: ASPirin 81 mg TAB PO SCH (09:52)
[2021-05-21] MEDS: CHOLECALCIFEROL (VITD3) 2,000 UNIT CAP/TAB PO SCH (09:53)
[2021-05-21] MEDS: FAMOTIDINE 20 MG TAB PO SCH (09:53)
[2021-05-21] MEDS: ENOXAPARIN SOD 60 MG/0.6 ML SYRINGE SC SCH (09:53)
[2021-05-21] MEDS: ACETAMINOPHEN 325 MG TAB PO PRN ×2 (12:08→23:49)
[2021-05-21] MEDS: hydrALAZINE HCL 20 MG/ML VL IV PRN (12:35)
[2021-05-21 13:00] VITALS: BP 164/73
[2021-05-21] MEDS ORDERED: MAGNESIUM SULFATE 1GM/100ML 100 ML IV ONE (13:00)
[2021-05-21 17:00] VITALS: BP 113/53
[2021-05-21] MEDS: FUROSEMIDE 40 MG/4 ML VIAL IV SCH (17:05)
[2021-05-21 22:00] VITALS: BP 173/66
[2021-05-21] MEDS: ATORVASTATIN 20 MG TAB PO SCH (22:52)
[2021-05-21] MEDS: LORazepam 0.5 MG TAB PO PRN (23:49)
[2021-05-22 05:30] LABS: Basophils # (auto) 0.1 10 ^3/uL (0-0.2); Basophils % (auto) 1.5 % (0.0-2.0); Eosinophils # (auto) 0.2 10 ^3/uL (0-0.8); Eosinophils % (auto) 3.6 % (0.0-7.0); Hematocrit 33.6 % (36.0-46.0); Hemoglobin 11.2 g/dL (12.2-16.2); Lymphocytes # (auto) 0.7 10 ^3/uL (0.4-5.4); Lymphocytes % (auto) 10.7 % (10.0-50.0); Mean Corpuscular Hemoglobin 28.5 pg (28.0-32.0); Mean Corpuscular Hgb Conc. 33.2 g/dL (32.0-36.0); Mean Corpuscular Volume 85.9 fL (80.0-100.0); Monocytes # (auto) 0.7 10 ^3/uL (0-1.3); Monocytes % (auto) 10.3 % (0.0-12.0); Neutrophils # (auto) 4.7 10 ^3/uL (1.6-8.6); Neutrophils % (auto) 73.9 % (37.0-80.0); Red Blood Cells 3.92 10^6/uL (4.0-5.20); Red Cell Distribution Width 18.1 % (11.8-14.3); White Blood Cell 6.4 10^3/uL (4.4-10.8)
[2021-05-22] MEDS: FUROSEMIDE 40 MG/4 ML VIAL IV SCH ×2 (05:36→18:00)
[2021-05-22 05:54] LABS: BUN/Creatinine Ratio 31.9; Calcium 8.9 mg/dL (8.5-10.1)
[2021-05-22 08:22] VITALS: BP 143/63
[2021-05-22] MEDS: FAMOTIDINE 20 MG TAB PO SCH (10:00)
[2021-05-22] MEDS: ASPirin 81 mg TAB PO SCH (10:00)
[2021-05-22] MEDS: ENOXAPARIN SOD 60 MG/0.6 ML SYRINGE SC SCH (10:04)
[2021-05-22] MEDS: CHOLECALCIFEROL (VITD3) 2,000 UNIT CAP/TAB PO SCH (10:04)
[2021-05-22] MEDS: METOPROLOL TARTRATE 50 MG TAB PO SCH ×2 (10:04→22:37)
[2021-05-22 10:05] VITALS: BP 143/63
[2021-05-22] MEDS: ACETAMINOPHEN 325 MG TAB PO PRN ×2 (10:06→22:38)
[2021-05-22 12:28] VITALS: BP 138/61
[2021-05-22 16:35] VITALS: BP 149/60
[2021-05-22 22:00] VITALS: BP 155/72
[2021-05-22] MEDS: ATORVASTATIN 20 MG TAB PO SCH (22:37)
[2021-05-22] MEDS: LORazepam 0.5 MG TAB PO PRN (22:38)
[2021-05-23 05:00] VITALS: BP 165/58
[2021-05-23] MEDS: FUROSEMIDE 40 MG/4 ML VIAL IV SCH ×2 (05:53→18:10)
[2021-05-23] MEDS: CHOLECALCIFEROL (VITD3) 2,000 UNIT CAP/TAB PO SCH (08:46)
[2021-05-23] MEDS: FAMOTIDINE 20 MG TAB PO SCH (08:46)
[2021-05-23] MEDS: ASPirin 81 mg TAB PO SCH (08:46)
[2021-05-23] MEDS: ENOXAPARIN SOD 60 MG/0.6 ML SYRINGE SC SCH ×2 (08:47→09:00)
[2021-05-23] MEDS: METOPROLOL TARTRATE 50 MG TAB PO SCH ×2 (08:47→21:36)
[2021-05-23 09:00] VITALS: BP 154/70
[2021-05-23 14:11] VITALS: BP 159/70
[2021-05-23 17:00] VITALS: BP 151/70
[2021-05-23 21:35] VITALS: BP 157/77
[2021-05-23] MEDS: ATORVASTATIN 20 MG TAB PO SCH (21:36)
[2021-05-23] MEDS: ACETAMINOPHEN 325 MG TAB PO PRN (21:37)
[2021-05-23] MEDS: LORazepam 0.5 MG TAB PO PRN (21:37)
[2021-05-24 05:00] VITALS: BP 148/67
[2021-05-24] MEDS: FUROSEMIDE 40 MG/4 ML VIAL IV SCH ×2 (06:10→18:00)
[2021-05-24 09:00] VITALS: BP 135/60
[2021-05-24] MEDS: ENOXAPARIN SOD 40 MG/0.4 ML SYRINGE SC SCH (10:00)
[2021-05-24] MEDS: ASPirin 81 mg TAB PO SCH (10:07)
[2021-05-24] MEDS: METOPROLOL TARTRATE 50 MG TAB PO SCH ×2 (10:08→21:38)
[2021-05-24] MEDS: ACETAMINOPHEN 325 MG TAB PO PRN ×2 (10:08→21:42)
[2021-05-24] MEDS: FAMOTIDINE 20 MG TAB PO SCH (10:08)
[2021-05-24] MEDS: CHOLECALCIFEROL (VITD3) 2,000 UNIT CAP/TAB PO SCH (10:09)
[2021-05-24 13:00] VITALS: BP 141/58
[2021-05-24 17:28] VITALS: BP 142/63
[2021-05-24] MEDS: ATORVASTATIN 20 MG TAB PO SCH (21:38)
[2021-05-24] MEDS: LORazepam 0.5 MG TAB PO PRN (21:42)
[2021-05-24 22:00] VITALS: BP 154/74
[2021-05-25 05:00] VITALS: BP 145/59
[2021-05-25] MEDS: FUROSEMIDE 40 MG/4 ML VIAL IV SCH (05:27)
[2021-05-25 06:36] LABS: Potassium 3.9 mmol/L (3.5-5.1)
[2021-05-25 06:46] LABS: BUN/Creatinine Ratio 33.7; Calcium 8.4 mg/dL (8.5-10.1)
[2021-05-25 09:00] VITALS: BP 142/60
[2021-05-25] MEDS: ENOXAPARIN SOD 40 MG/0.4 ML SYRINGE SC SCH (10:00)
[2021-05-25] MEDS: ASPirin 81 mg TAB PO SCH ×2 (10:31→18:36)
[2021-05-25] MEDS: CHOLECALCIFEROL (VITD3) 2,000 UNIT CAP/TAB PO SCH (10:32)
[2021-05-25] MEDS: METOPROLOL TARTRATE 50 MG TAB PO SCH ×2 (10:32→21:58)
[2021-05-25] MEDS: FAMOTIDINE 20 MG TAB PO SCH (10:32)
[2021-05-25 13:00] VITALS: BP 127/59
[2021-05-25] MEDS: ACETAMINOPHEN 325 MG TAB PO PRN ×2 (14:13→18:46)
[2021-05-25 16:57] VITALS: BP 142/67
[2021-05-25] MEDS: ATORVASTATIN 20 MG TAB PO SCH (21:57)
[2021-05-25 22:00] VITALS: BP 135/62
[2021-05-26] MEDS: LORazepam 0.5 MG TAB PO PRN ×2 (00:45→22:15)
[2021-05-26] MEDS: ACETAMINOPHEN 325 MG TAB PO PRN ×2 (00:45→22:15)
[2021-05-26 05:00] VITALS: BP 138/69
[2021-05-26 08:44] VITALS: BP 139/66
[2021-05-26] MEDS: FAMOTIDINE 20 MG TAB PO SCH (09:34)
[2021-05-26] MEDS: CHOLECALCIFEROL (VITD3) 2,000 UNIT CAP/TAB PO SCH (09:34)
[2021-05-26] MEDS: ASPirin 81 mg TAB PO SCH (09:34)
[2021-05-26] MEDS: ENOXAPARIN SOD 40 MG/0.4 ML SYRINGE SC SCH (09:35)
[2021-05-26] MEDS: METOPROLOL TARTRATE 50 MG TAB PO SCH ×2 (09:35→22:06)
[2021-05-26] MEDS ORDERED: levoFLOXacin 500 MG TAB PO ONE (12:30)
[2021-05-26 12:38] VITALS: BP 136/70
[2021-05-26 16:32] VITALS: BP 150/68
[2021-05-26 21:22] LABS: BUN/Creatinine Ratio 32.6; Calcium 8.9 mg/dL (8.5-10.1)
[2021-05-26 22:00] VITALS: BP 152/72
[2021-05-26] MEDS: ATORVASTATIN 20 MG TAB PO SCH (22:02)
[2021-05-27 05:00] VITALS: BP 140/66
[2021-05-27 06:42] LABS: Basophils # (auto) 0.1 10 ^3/uL (0-0.2); Eosinophils # (auto) 0.4 10 ^3/uL (0-0.8); Eosinophils % (auto) 7.2 % (0.0-7.0); Hematocrit 32.6 % (36.0-46.0); Hemoglobin 10.7 g/dL (12.2-16.2); Lymphocytes # (auto) 0.7 10 ^3/uL (0.4-5.4); Lymphocytes % (auto) 12.5 % (10.0-50.0); Mean Corpuscular Hemoglobin 28.3 pg (28.0-32.0); Mean Corpuscular Hgb Conc. 32.7 g/dL (32.0-36.0); Mean Corpuscular Volume 86.6 fL (80.0-100.0); Monocytes # (auto) 0.6 10 ^3/uL (0-1.3); Monocytes % (auto) 11.2 % (0.0-12.0); Neutrophils # (auto) 3.7 10 ^3/uL (1.6-8.6); Neutrophils % (auto) 68.1 % (37.0-80.0); Nucleated Red Blood Cells % 0.2 %; Red Blood Cells 3.76 10^6/uL (4.0-5.20); Red Cell Distribution Width 18.2 % (11.8-14.3); White Blood Cell 5.4 10^3/uL (4.4-10.8)
[2021-05-27 06:59] LABS: BUN/Creatinine Ratio 35.8; Calcium 8.4 mg/dL (8.5-10.1)
[2021-05-27 09:00] VITALS: BP 144/61
[2021-05-27] MEDS: ENOXAPARIN SOD 40 MG/0.4 ML SYRINGE SC SCH (09:48)
[2021-05-27] MEDS: FAMOTIDINE 20 MG TAB PO SCH (09:48)
[2021-05-27] MEDS: METOPROLOL TARTRATE 50 MG TAB PO SCH ×2 (09:48→22:45)
[2021-05-27] MEDS: CHOLECALCIFEROL (VITD3) 2,000 UNIT CAP/TAB PO SCH (09:48)
[2021-05-27] MEDS: levoFLOXacin 500 MG TAB PO SCH (09:48)
[2021-05-27] MEDS: ASPirin 81 mg TAB PO SCH (09:48)
[2021-05-27 13:00] VITALS: BP 148/61
[2021-05-27] MEDS: ACETAMINOPHEN 325 MG TAB PO PRN ×2 (13:35→22:01)
[2021-05-27 17:00] VITALS: BP 131/49
[2021-05-27 22:00] VITALS: BP 155/69
[2021-05-27] MEDS: ATORVASTATIN 20 MG TAB PO SCH (22:02)
[2021-05-27] MEDS: LORazepam 0.5 MG TAB PO PRN (22:02)
[2021-05-28 05:00] VITALS: BP 155/67
[2021-05-28 06:39] LABS: Basophils # (auto) 0 10 ^3/uL (0-0.2); Basophils % (auto) 0.9 % (0.0-2.0); Eosinophils # (auto) 0.3 10 ^3/uL (0-0.8); Hematocrit 33.5 % (36.0-46.0); Hemoglobin 10.7 g/dL (12.2-16.2); Lymphocytes # (auto) 0.7 10 ^3/uL (0.4-5.4); Lymphocytes % (auto) 13.9 % (10.0-50.0); Mean Corpuscular Hemoglobin 27.5 pg (28.0-32.0); Mean Corpuscular Hgb Conc. 31.8 g/dL (32.0-36.0); Mean Corpuscular Volume 86.4 fL (80.0-100.0); Monocytes # (auto) 0.6 10 ^3/uL (0-1.3); Monocytes % (auto) 11.8 % (0.0-12.0); Neutrophils # (auto) 3.3 10 ^3/uL (1.6-8.6); Neutrophils % (auto) 67.4 % (37.0-80.0); Nucleated Red Blood Cells % 0.1 %; Red Blood Cells 3.88 10^6/uL (4.0-5.20); Red Cell Distribution Width 18.3 % (11.8-14.3); White Blood Cell 4.9 10^3/uL (4.4-10.8)
[2021-05-28 06:51] LABS: BUN/Creatinine Ratio 36.1; Calcium 8.7 mg/dL (8.5-10.1); Potassium 4.2 mmol/L (3.5-5.1)
[2021-05-28] MEDS: ENOXAPARIN SOD 40 MG/0.4 ML SYRINGE SC SCH ×3 (08:50→10:00)
[2021-05-28] MEDS: levoFLOXacin 500 MG TAB PO SCH (08:51)
[2021-05-28] MEDS: CHOLECALCIFEROL (VITD3) 2,000 UNIT CAP/TAB PO SCH (08:51)
[2021-05-28] MEDS: ASPirin 81 mg TAB PO SCH (08:51)
[2021-05-28] MEDS: FAMOTIDINE 20 MG TAB PO SCH (08:51)
[2021-05-28] MEDS: METOPROLOL TARTRATE 50 MG TAB PO SCH ×2 (08:52→22:09)
[2021-05-28 09:00] VITALS: BP 149/70
[2021-05-28] MEDS: ACETAMINOPHEN 325 MG TAB PO PRN ×2 (10:19→19:43)
[2021-05-28 13:00] VITALS: BP 128/58
[2021-05-28 17:00] VITALS: BP 160/76
[2021-05-28 22:00] VITALS: BP 144/63
[2021-05-28] MEDS: ATORVASTATIN 20 MG TAB PO SCH (22:09)
[2021-05-29] MEDS: ACETAMINOPHEN 325 MG TAB PO PRN ×3 (01:48→21:56)
[2021-05-29] MEDS: TEMAZEPAM 15 MG CAP PO PRN (01:48)
[2021-05-29] MEDS: LORazepam 0.5 MG TAB PO PRN ×2 (01:57→21:56)
[2021-05-29 05:00] VITALS: BP 146/76
[2021-05-29] MEDS: FAMOTIDINE 20 MG TAB PO SCH (08:29)
[2021-05-29] MEDS: CHOLECALCIFEROL (VITD3) 2,000 UNIT CAP/TAB PO SCH (08:29)
[2021-05-29] MEDS: ASPirin 81 mg TAB PO SCH (08:41)
[2021-05-29] MEDS: METOPROLOL TARTRATE 50 MG TAB PO SCH ×2 (08:41→21:55)
[2021-05-29 09:00] VITALS: BP 148/59
[2021-05-29] MEDS: ENOXAPARIN SOD 40 MG/0.4 ML SYRINGE SC SCH (09:11)
[2021-05-29 13:00] VITALS: BP 158/89
[2021-05-29 17:00] VITALS: BP 162/70
[2021-05-29] MEDS: ATORVASTATIN 20 MG TAB PO SCH (21:54)
[2021-05-29 22:00] VITALS: BP 163/70
[2021-05-30] VITALS (7 sets, daily range): BP systolic 144–168; BP diastolic 67–70
[2021-05-30] MEDS ORDERED: FUROSEMIDE 40 MG TAB PO SCH (06:00)
[2021-05-30] MEDS: ENOXAPARIN SOD 40 MG/0.4 ML SYRINGE SC SCH (10:00)
[2021-05-30] MEDS: ASPirin 81 mg TAB PO SCH (10:19)
[2021-05-30] MEDS: METOPROLOL TARTRATE 50 MG TAB PO SCH ×2 (10:19→21:50)
[2021-05-30] MEDS: CHOLECALCIFEROL (VITD3) 2,000 UNIT CAP/TAB PO SCH (10:20)
[2021-05-30] MEDS: FAMOTIDINE 20 MG TAB PO SCH (10:20)
[2021-05-30] MEDS ORDERED: PIPERACILLIN-TAZOB 3.375GM 100 ML IV ONE (11:30)
[2021-05-30] MEDS ORDERED: CLINDAMYCIN 600 MG/4 ML VL IM ONE (11:45)
[2021-05-30] MEDS ORDERED: CLINDAMYCIN 300MG IV 50 ML IV ONE (11:45)
[2021-05-30] MEDS ORDERED: PIPERACILLIN-TAZOB 3.375GM 100 ML IV SCH (12:00)
[2021-05-30] MEDS ORDERED: IOHEXOL 350 MG/ML 100ML IJ ONE (12:08)
[2021-05-30] MEDS ORDERED: IODIXANOL 320MG/ML 100ML BTL IV ONE (12:59)
[2021-05-30] MEDS ORDERED: CLINDAMYCIN 600 MG/4 ML VL IM SCH (14:00)
[2021-05-30] MEDS ORDERED: FUROSEMIDE 20 MG/2 ML VIAL IV ONE (16:45)
[2021-05-30] MEDS: DOXYCYCLINE 100MG/250ML 250 ML IV SCH (17:45)
[2021-05-30] MEDS ORDERED: PIPERACILLIN-TAZOB 2.25GM 50 ML IV SCH (18:00)
[2021-05-30] MEDS ORDERED: CLINDAMYCIN 300MG IV 50 ML IV SCH (20:00)
[2021-05-30] MEDS: LORazepam 0.5 MG TAB PO PRN (21:50)
[2021-05-30] MEDS: ATORVASTATIN 20 MG TAB PO SCH (21:50)
[2021-05-30] MEDS: ACETAMINOPHEN 325 MG TAB PO PRN (21:51)
[2021-05-31 04:58] VITALS: BP 138/61
[2021-05-31] MEDS: DOXYCYCLINE 100MG/250ML 250 ML IV SCH ×2 (05:31→17:09)
[2021-05-31] MEDS: FUROSEMIDE 40 MG/4 ML VIAL IV SCH ×2 (05:32→17:10)
[2021-05-31 06:22] LABS: Basophils # (auto) 0 10 ^3/uL (0-0.2); Basophils % (auto) 0.5 % (0.0-2.0); Eosinophils # (auto) 0.3 10 ^3/uL (0-0.8); Eosinophils % (auto) 6.2 % (0.0-7.0); Hematocrit 29.1 % (36.0-46.0); Hemoglobin 9.6 g/dL (12.2-16.2); Lymphocytes # (auto) 0.7 10 ^3/uL (0.4-5.4); Lymphocytes % (auto) 14.1 % (10.0-50.0); Mean Corpuscular Hemoglobin 28.5 pg (28.0-32.0); Mean Corpuscular Hgb Conc. 32.8 g/dL (32.0-36.0); Mean Corpuscular Volume 86.8 fL (80.0-100.0); Monocytes # (auto) 0.6 10 ^3/uL (0-1.3); Monocytes % (auto) 11.8 % (0.0-12.0); Neutrophils # (auto) 3.4 10 ^3/uL (1.6-8.6); Neutrophils % (auto) 67.4 % (37.0-80.0); Nucleated Red Blood Cells % 0.2 %; Red Blood Cells 3.35 10^6/uL (4.0-5.20); White Blood Cell 5.1 10^3/uL (4.4-10.8)
[2021-05-31 07:17] LABS: Calcium 8.6 mg/dL (8.5-10.1); Magnesium 1.8 mg/dL (1.6-2.6); Potassium 4.3 mmol/L (3.5-5.1)
[2021-05-31 09:00] VITALS: BP 139/58
[2021-05-31] MEDS: METOPROLOL TARTRATE 50 MG TAB PO SCH ×2 (10:30→21:54)
[2021-05-31] MEDS: FAMOTIDINE 20 MG TAB PO SCH (10:33)
[2021-05-31] MEDS: ASPirin 81 mg TAB PO SCH (10:33)
[2021-05-31] MEDS: ENOXAPARIN SOD 40 MG/0.4 ML SYRINGE SC SCH (10:35)
[2021-05-31] MEDS: CHOLECALCIFEROL (VITD3) 2,000 UNIT CAP/TAB PO SCH (10:35)
[2021-05-31] MEDS ORDERED: MAGNESIUM SULFATE 1GM/100ML 100 ML IV ONE (10:45)
[2021-05-31 13:00] VITALS: BP 124/52
[2021-05-31 16:36] VITALS: BP 152/67
[2021-05-31] MEDS: ATORVASTATIN 20 MG TAB PO SCH (21:54)
[2021-05-31] MEDS: LORazepam 0.5 MG TAB PO PRN (21:55)
[2021-05-31 22:00] VITALS: BP 136/66
[2021-05-31] MEDS: ACETAMINOPHEN 325 MG TAB PO PRN (22:01)
[2021-06-01 05:00] VITALS: BP 134/64
[2021-06-01] MEDS: FUROSEMIDE 40 MG/4 ML VIAL IV SCH ×2 (05:34→18:34)
[2021-06-01] MEDS: DOXYCYCLINE 100MG/250ML 250 ML IV SCH ×2 (05:35→17:18)
[2021-06-01 06:52] LABS: Hematocrit 29.7 % (36.0-46.0); Hemoglobin 9.6 g/dL (12.2-16.2)
[2021-06-01 07:12] LABS: Calcium 8.5 mg/dL (8.5-10.1); Potassium 4.2 mmol/L (3.5-5.1)
[2021-06-01 07:15] LABS: BUN/Creatinine Ratio 31.5
[2021-06-01 09:00] VITALS: BP 150/65
[2021-06-01] MEDS: ENOXAPARIN SOD 40 MG/0.4 ML SYRINGE SC SCH (10:00)
[2021-06-01] MEDS: FAMOTIDINE 20 MG TAB PO SCH (10:26)
[2021-06-01] MEDS: CHOLECALCIFEROL (VITD3) 2,000 UNIT CAP/TAB PO SCH (10:26)
[2021-06-01] MEDS: METOPROLOL TARTRATE 50 MG TAB PO SCH ×2 (10:26→21:51)
[2021-06-01] MEDS: ASPirin 81 mg TAB PO SCH (10:26)
[2021-06-01 13:00] VITALS: BP 146/68
[2021-06-01 17:00] VITALS: BP 129/54
[2021-06-01] MEDS: ACETAMINOPHEN 325 MG TAB PO PRN ×2 (20:44→21:51)
[2021-06-01] MEDS: ATORVASTATIN 20 MG TAB PO SCH (21:51)
[2021-06-01] MEDS: LORazepam 0.5 MG TAB PO PRN (21:51)
[2021-06-01 22:00] VITALS: BP 150/66
[2021-06-02 05:00] VITALS: BP 129/60
[2021-06-02] MEDS: DOXYCYCLINE 100MG/250ML 250 ML IV SCH ×2 (05:22→17:30)
[2021-06-02] MEDS: FUROSEMIDE 40 MG/4 ML VIAL IV SCH ×2 (06:10→17:30)
[2021-06-02 06:48] LABS: Calcium 7.5 mg/dL (8.5-10.1); Magnesium 1.9 mg/dL (1.6-2.6)
[2021-06-02 06:50] LABS: BUN/Creatinine Ratio 26.5
[2021-06-02 09:00] VITALS: BP 146/70
[2021-06-02] MEDS: ASPirin 81 mg TAB PO SCH (09:55)
[2021-06-02] MEDS: ENOXAPARIN SOD 40 MG/0.4 ML SYRINGE SC SCH (09:56)
[2021-06-02] MEDS: FAMOTIDINE 20 MG TAB PO SCH (09:56)
[2021-06-02] MEDS: CHOLECALCIFEROL (VITD3) 2,000 UNIT CAP/TAB PO SCH (09:56)
[2021-06-02] MEDS: METOPROLOL TARTRATE 50 MG TAB PO SCH ×2 (09:56→21:50)
[2021-06-02 10:44] VITALS: BP 142/70
[2021-06-02 10:58] LABS: Calcium 8.8 mg/dL (8.5-10.1); Potassium 4.2 mmol/L (3.5-5.1)
[2021-06-02 13:00] VITALS: BP 145/59
[2021-06-02 17:00] VITALS: BP 138/67
[2021-06-02] MEDS: ACETAMINOPHEN 325 MG TAB PO PRN (19:45)
[2021-06-02] MEDS: ATORVASTATIN 20 MG TAB PO SCH (21:49)
[2021-06-02] MEDS: LORazepam 0.5 MG TAB PO PRN (21:50)
[2021-06-02 22:35] VITALS: BP 140/65
[2021-06-03 05:19] VITALS: BP 152/73
[2021-06-03] MEDS: FUROSEMIDE 40 MG/4 ML VIAL IV SCH ×2 (05:20→19:06)
[2021-06-03] MEDS: DOXYCYCLINE 100MG/250ML 250 ML IV SCH ×2 (05:20→19:05)
[2021-06-03 06:18] LABS: Basophils # (auto) 0 10 ^3/uL (0-0.2); Basophils % (auto) 0.5 % (0.0-2.0); Eosinophils # (auto) 0.6 10 ^3/uL (0-0.8); Eosinophils % (auto) 12.6 % (0.0-7.0); Hematocrit 30.1 % (36.0-46.0); Hemoglobin 9.7 g/dL (12.2-16.2); Lymphocytes # (auto) 0.7 10 ^3/uL (0.4-5.4); Mean Corpuscular Hemoglobin 28.1 pg (28.0-32.0); Mean Corpuscular Hgb Conc. 32.2 g/dL (32.0-36.0); Mean Corpuscular Volume 87.3 fL (80.0-100.0); Monocytes # (auto) 0.5 10 ^3/uL (0-1.3); Monocytes % (auto) 9.8 % (0.0-12.0); Neutrophils % (auto) 63.1 % (37.0-80.0); Nucleated Red Blood Cells % 0.2 %; Red Blood Cells 3.44 10^6/uL (4.0-5.20); Red Cell Distribution Width 18.8 % (11.8-14.3); White Blood Cell 4.7 10^3/uL (4.4-10.8)
[2021-06-03 06:35] LABS: BUN/Creatinine Ratio 26.2; Calcium 8.6 mg/dL (8.5-10.1); Potassium 4.4 mmol/L (3.5-5.1)
[2021-06-03 09:00] VITALS: BP 142/59
[2021-06-03 13:00] VITALS: BP 147/66
[2021-06-03] MEDS: CHOLECALCIFEROL (VITD3) 2,000 UNIT CAP/TAB PO SCH (14:25)
[2021-06-03] MEDS: METOPROLOL TARTRATE 50 MG TAB PO SCH ×2 (14:25→21:39)
[2021-06-03] MEDS: ENOXAPARIN SOD 40 MG/0.4 ML SYRINGE SC SCH (14:25)
[2021-06-03] MEDS: ASPirin 81 mg TAB PO SCH (14:25)
[2021-06-03] MEDS: FAMOTIDINE 20 MG TAB PO SCH (14:25)
[2021-06-03 16:53] VITALS: BP 142/67
[2021-06-03] MEDS: ATORVASTATIN 20 MG TAB PO SCH (21:39)
[2021-06-03] MEDS: ACETAMINOPHEN 325 MG TAB PO PRN (21:40)
[2021-06-03] MEDS: LORazepam 0.5 MG TAB PO PRN (21:40)
[2021-06-03 22:00] VITALS: BP 148/63
[2021-06-04] MEDS: DOXYCYCLINE 100MG/250ML 250 ML IV SCH ×2 (05:06→18:03)
[2021-06-04] MEDS: FUROSEMIDE 40 MG/4 ML VIAL IV SCH (05:06)
[2021-06-04 09:00] VITALS: BP 128/63
[2021-06-04] MEDS: ASPirin 81 mg TAB PO SCH (09:29)
[2021-06-04] MEDS: ENOXAPARIN SOD 40 MG/0.4 ML SYRINGE SC SCH (09:30)
[2021-06-04] MEDS: FAMOTIDINE 20 MG TAB PO SCH (09:30)
[2021-06-04] MEDS: METOPROLOL TARTRATE 50 MG TAB PO SCH ×2 (09:30→21:52)
[2021-06-04] MEDS: CHOLECALCIFEROL (VITD3) 2,000 UNIT CAP/TAB PO SCH (09:30)
[2021-06-04 12:48] VITALS: BP 121/67
[2021-06-04 17:00] VITALS: BP 132/61
[2021-06-04] MEDS: ATORVASTATIN 20 MG TAB PO SCH (21:52)
[2021-06-04] MEDS: LORazepam 0.5 MG TAB PO PRN (21:53)
[2021-06-04] MEDS: ACETAMINOPHEN 325 MG TAB PO PRN (21:53)
[2021-06-04 22:00] VITALS: BP 146/64
[2021-06-05] MEDS: DOXYCYCLINE 100MG/250ML 250 ML IV SCH ×2 (04:35→18:39)
[2021-06-05 05:00] VITALS: BP 134/63
[2021-06-05 05:59] LABS: Basophils # (auto) 0 10 ^3/uL (0-0.2); Basophils % (auto) 0.4 % (0.0-2.0); Eosinophils # (auto) 0.5 10 ^3/uL (0-0.8); Hemoglobin 9.9 g/dL (12.2-16.2); Lymphocytes # (auto) 0.6 10 ^3/uL (0.4-5.4); Lymphocytes % (auto) 12.3 % (10.0-50.0); Mean Corpuscular Hemoglobin 27.9 pg (28.0-32.0); Mean Corpuscular Volume 87.3 fL (80.0-100.0); Monocytes # (auto) 0.5 10 ^3/uL (0-1.3); Monocytes % (auto) 9.2 % (0.0-12.0); Neutrophils # (auto) 3.3 10 ^3/uL (1.6-8.6); Neutrophils % (auto) 68.1 % (37.0-80.0); Nucleated Red Blood Cells % 0.1 %; Red Blood Cells 3.55 10^6/uL (4.0-5.20); Red Cell Distribution Width 18.9 % (11.8-14.3); White Blood Cell 4.9 10^3/uL (4.4-10.8)
[2021-06-05 06:14] LABS: BUN/Creatinine Ratio 23.9; Calcium 8.7 mg/dL (8.5-10.1); Potassium 4.3 mmol/L (3.5-5.1)
[2021-06-05] MEDS: ASPirin 81 mg TAB PO SCH (08:29)
[2021-06-05] MEDS: ENOXAPARIN SOD 40 MG/0.4 ML SYRINGE SC SCH (08:29)
[2021-06-05] MEDS: CHOLECALCIFEROL (VITD3) 2,000 UNIT CAP/TAB PO SCH (08:29)
[2021-06-05] MEDS: FAMOTIDINE 20 MG TAB PO SCH (08:29)
[2021-06-05] MEDS: METOPROLOL TARTRATE 50 MG TAB PO SCH ×2 (08:37→22:11)
[2021-06-05 09:00] VITALS: BP 148/62
[2021-06-05 15:24] VITALS: BP 121/55
[2021-06-05 17:00] VITALS: BP 143/66
[2021-06-05 21:33] VITALS: BP 153/69
[2021-06-05] MEDS: ACETAMINOPHEN 325 MG TAB PO PRN (22:10)
[2021-06-05] MEDS: ATORVASTATIN 20 MG TAB PO SCH (22:10)
[2021-06-05] MEDS: LORazepam 0.5 MG TAB PO PRN (22:11)
[2021-06-06] MEDS: DOXYCYCLINE 100MG/250ML 250 ML IV SCH (04:28)
[2021-06-06 04:53] VITALS: BP 139/66
[2021-06-06] MEDS: FUROSEMIDE 40 MG/4 ML VIAL IV SCH ×2 (05:29→17:56)
[2021-06-06 09:00] VITALS: BP 148/73
[2021-06-06] MEDS: METOPROLOL TARTRATE 50 MG TAB PO SCH ×2 (10:04→22:52)
[2021-06-06] MEDS: ASPirin 81 mg TAB PO SCH (10:04)
[2021-06-06] MEDS: ENOXAPARIN SOD 40 MG/0.4 ML SYRINGE SC SCH (10:05)
[2021-06-06] MEDS: FAMOTIDINE 20 MG TAB PO SCH (10:05)
[2021-06-06] MEDS: CHOLECALCIFEROL (VITD3) 2,000 UNIT CAP/TAB PO SCH (10:05)
[2021-06-06 10:21] LABS: Basophils # (auto) 0 10 ^3/uL (0-0.2); Basophils % (auto) 0.3 % (0.0-2.0); Eosinophils # (auto) 0.4 10 ^3/uL (0-0.8); Eosinophils % (auto) 8.2 % (0.0-7.0); Hematocrit 31.8 % (36.0-46.0); Hemoglobin 9.9 g/dL (12.2-16.2); Lymphocytes # (auto) 0.6 10 ^3/uL (0.4-5.4); Lymphocytes % (auto) 14.1 % (10.0-50.0); Mean Corpuscular Hemoglobin 27.3 pg (28.0-32.0); Monocytes # (auto) 0.5 10 ^3/uL (0-1.3); Neutrophils # (auto) 3.1 10 ^3/uL (1.6-8.6); Neutrophils % (auto) 67.4 % (37.0-80.0); Nucleated Red Blood Cells % 0.1 %; Red Blood Cells 3.62 10^6/uL (4.0-5.20); White Blood Cell 4.5 10^3/uL (4.4-10.8)
[2021-06-06 10:43] LABS: Calcium 9.1 mg/dL (8.5-10.1); Potassium 4.5 mmol/L (3.5-5.1)
[2021-06-06 13:00] VITALS: BP 132/66
[2021-06-06 17:00] VITALS: BP 131/62
[2021-06-06 22:15] VITALS: BP 153/70
[2021-06-06] MEDS: ATORVASTATIN 20 MG TAB PO SCH (22:52)
[2021-06-06] MEDS: ACETAMINOPHEN 325 MG TAB PO PRN (22:54)
[2021-06-06] MEDS: LORazepam 0.5 MG TAB PO PRN (22:54)
[2021-06-07] VITALS (7 sets, daily range): BP systolic 145–151; BP diastolic 57–69
[2021-06-07] MEDS: FUROSEMIDE 40 MG/4 ML VIAL IV SCH ×2 (06:18→18:35)
[2021-06-07 06:46] LABS: Basophils # (auto) 0 10 ^3/uL (0-0.2); Basophils % (auto) 0.5 % (0.0-2.0); Eosinophils # (auto) 0.4 10 ^3/uL (0-0.8); Eosinophils % (auto) 9.3 % (0.0-7.0); Hematocrit 30.9 % (36.0-46.0); Hemoglobin 10.1 g/dL (12.2-16.2); Lymphocytes # (auto) 0.8 10 ^3/uL (0.4-5.4); Lymphocytes % (auto) 17.4 % (10.0-50.0); Mean Corpuscular Hemoglobin 28.2 pg (28.0-32.0); Mean Corpuscular Hgb Conc. 32.5 g/dL (32.0-36.0); Mean Corpuscular Volume 86.7 fL (80.0-100.0); Monocytes # (auto) 0.5 10 ^3/uL (0-1.3); Monocytes % (auto) 10.3 % (0.0-12.0); Neutrophils # (auto) 2.8 10 ^3/uL (1.6-8.6); Neutrophils % (auto) 62.5 % (37.0-80.0); Nucleated Red Blood Cells % 0.1 %; Red Blood Cells 3.57 10^6/uL (4.0-5.20); Red Cell Distribution Width 18.5 % (11.8-14.3); White Blood Cell 4.5 10^3/uL (4.4-10.8)
[2021-06-07 07:07] LABS: Potassium 4.3 mmol/L (3.5-5.1)
[2021-06-07 07:14] LABS: BUN/Creatinine Ratio 28.6; Calcium 8.9 mg/dL (8.5-10.1)
[2021-06-07] MEDS: ASPirin 81 mg TAB PO SCH (09:43)
[2021-06-07] MEDS: FAMOTIDINE 20 MG TAB PO SCH (09:48)
[2021-06-07] MEDS: METOPROLOL TARTRATE 50 MG TAB PO SCH ×2 (09:48→22:05)
[2021-06-07] MEDS: ENOXAPARIN SOD 40 MG/0.4 ML SYRINGE SC SCH ×2 (09:48→09:49)
[2021-06-07] MEDS: CHOLECALCIFEROL (VITD3) 2,000 UNIT CAP/TAB PO SCH (09:48)
[2021-06-07] MEDS: LORazepam 0.5 MG TAB PO PRN (22:05)
[2021-06-07] MEDS: ATORVASTATIN 20 MG TAB PO SCH (22:05)
[2021-06-07] MEDS: ACETAMINOPHEN 325 MG TAB PO PRN (22:06)
[2021-06-08 05:00] VITALS: BP 128/62
[2021-06-08] MEDS: FUROSEMIDE 40 MG/4 ML VIAL IV SCH ×2 (06:23→17:50)
[2021-06-08 07:31] LABS: BUN/Creatinine Ratio 29.1; Calcium 9.3 mg/dL (8.5-10.1); Potassium 4.3 mmol/L (3.5-5.1)
[2021-06-08 08:59] VITALS: BP 135/62
[2021-06-08] MEDS: ENOXAPARIN SOD 40 MG/0.4 ML SYRINGE SC SCH (10:00)
[2021-06-08] MEDS: CHOLECALCIFEROL (VITD3) 2,000 UNIT CAP/TAB PO SCH (10:05)
[2021-06-08] MEDS: METOPROLOL TARTRATE 50 MG TAB PO SCH ×2 (10:05→22:56)
[2021-06-08] MEDS: ASPirin 81 mg TAB PO SCH (10:05)
[2021-06-08] MEDS: FAMOTIDINE 20 MG TAB PO SCH (10:06)
[2021-06-08 12:32] VITALS: BP 144/67
[2021-06-08 16:53] VITALS: BP 159/61
[2021-06-08] MEDS: hydrALAZINE HCL 20 MG/ML VL IV PRN (17:05)
[2021-06-08 22:00] VITALS: BP 144/56
[2021-06-08] MEDS: ATORVASTATIN 20 MG TAB PO SCH (22:55)
[2021-06-08] MEDS: LORazepam 0.5 MG TAB PO PRN (22:56)
[2021-06-08] MEDS: ACETAMINOPHEN 325 MG TAB PO PRN (22:57)
[2021-06-09 05:00] VITALS: BP 144/61
[2021-06-09 06:31] LABS: Magnesium 1.8 mg/dL (1.6-2.6); Potassium 4.1 mmol/L (3.5-5.1)
[2021-06-09] MEDS: FUROSEMIDE 40 MG/4 ML VIAL IV SCH ×2 (06:33→17:25)
[2021-06-09 06:34] LABS: BUN/Creatinine Ratio 33.1
[2021-06-09 09:00] VITALS: BP 129/67
[2021-06-09] MEDS: ASPirin 81 mg TAB PO SCH (09:38)
[2021-06-09] MEDS: METOPROLOL TARTRATE 50 MG TAB PO SCH ×2 (09:39→23:12)
[2021-06-09] MEDS: ENOXAPARIN SOD 40 MG/0.4 ML SYRINGE SC SCH (09:39)
[2021-06-09] MEDS: CHOLECALCIFEROL (VITD3) 2,000 UNIT CAP/TAB PO SCH (09:39)
[2021-06-09] MEDS: FAMOTIDINE 20 MG TAB PO SCH (09:39)
[2021-06-09 13:00] VITALS: BP 126/67
[2021-06-09] MEDS: ACETAMINOPHEN 325 MG TAB PO PRN ×2 (13:34→23:13)
[2021-06-09 16:39] VITALS: BP 108/65
[2021-06-09 22:00] VITALS: BP 155/72
[2021-06-09] MEDS: ATORVASTATIN 20 MG TAB PO SCH (23:11)
[2021-06-09] MEDS: LORazepam 0.5 MG TAB PO PRN (23:13)
[2021-06-10 05:00] VITALS: BP 165/72
[2021-06-10 05:38] LABS: Basophils # (auto) 0 10 ^3/uL (0-0.2); Basophils % (auto) 0.6 % (0.0-2.0); Eosinophils # (auto) 0.5 10 ^3/uL (0-0.8); Eosinophils % (auto) 12.1 % (0.0-7.0); Hematocrit 30.5 % (36.0-46.0); Hemoglobin 9.9 g/dL (12.2-16.2); Lymphocytes # (auto) 0.7 10 ^3/uL (0.4-5.4); Lymphocytes % (auto) 16.7 % (10.0-50.0); Mean Corpuscular Hgb Conc. 32.4 g/dL (32.0-36.0); Mean Corpuscular Volume 86.4 fL (80.0-100.0); Monocytes # (auto) 0.5 10 ^3/uL (0-1.3); Monocytes % (auto) 11.6 % (0.0-12.0); Neutrophils # (auto) 2.3 10 ^3/uL (1.6-8.6); Red Blood Cells 3.53 10^6/uL (4.0-5.20); Red Cell Distribution Width 18.6 % (11.8-14.3); White Blood Cell 3.9 10^3/uL (4.4-10.8)
[2021-06-10 06:17] LABS: BUN/Creatinine Ratio 32.9
[2021-06-10] MEDS: FUROSEMIDE 40 MG/4 ML VIAL IV SCH ×2 (06:57→18:00)
[2021-06-10 09:00] VITALS: BP 129/55
[2021-06-10] MEDS: FAMOTIDINE 20 MG TAB PO SCH (09:05)
[2021-06-10] MEDS: ASPirin 81 mg TAB PO SCH (09:05)
[2021-06-10] MEDS: METOPROLOL TARTRATE 50 MG TAB PO SCH ×2 (09:05→22:27)
[2021-06-10] MEDS: ENOXAPARIN SOD 40 MG/0.4 ML SYRINGE SC SCH (09:06)
[2021-06-10] MEDS: CHOLECALCIFEROL (VITD3) 2,000 UNIT CAP/TAB PO SCH (09:06)
[2021-06-10 13:00] VITALS: BP_SYST 129; BP_SYST 155; BP_DIAS 63; BP_DIAS 69
[2021-06-10 13:46] VITALS: BP 142/72
[2021-06-10 17:00] VITALS: BP 129/63
[2021-06-10] MEDS: hydrALAZINE HCL 20 MG/ML VL IV PRN (18:05)
[2021-06-10] MEDS: ACETAMINOPHEN 325 MG TAB PO PRN (18:09)
[2021-06-10 22:08] VITALS: BP 173/81
[2021-06-10] MEDS: ATORVASTATIN 20 MG TAB PO SCH (22:26)
[2021-06-10] MEDS: LORazepam 0.5 MG TAB PO PRN (22:27)
[2021-06-11] MEDS: ACETAMINOPHEN 325 MG TAB PO PRN ×2 (00:17→20:47)
[2021-06-11] MEDS: FUROSEMIDE 40 MG/4 ML VIAL IV SCH ×2 (04:59→17:58)
[2021-06-11 05:30] VITALS: BP 155/80
[2021-06-11 05:55] LABS: Basophils # (auto) 0 10 ^3/uL (0-0.2); Basophils % (auto) 0.5 % (0.0-2.0); Eosinophils # (auto) 0.4 10 ^3/uL (0-0.8); Eosinophils % (auto) 9.5 % (0.0-7.0); Hematocrit 27.9 % (36.0-46.0); Hemoglobin 9.3 g/dL (12.2-16.2); Lymphocytes # (auto) 0.8 10 ^3/uL (0.4-5.4); Lymphocytes % (auto) 17.9 % (10.0-50.0); Mean Corpuscular Hemoglobin 28.6 pg (28.0-32.0); Mean Corpuscular Hgb Conc. 33.2 g/dL (32.0-36.0); Mean Corpuscular Volume 86.2 fL (80.0-100.0); Monocytes # (auto) 0.5 10 ^3/uL (0-1.3); Monocytes % (auto) 11.7 % (0.0-12.0); Neutrophils # (auto) 2.7 10 ^3/uL (1.6-8.6); Neutrophils % (auto) 60.4 % (37.0-80.0); Nucleated Red Blood Cells % 0.2 %; Red Blood Cells 3.23 10^6/uL (4.0-5.20); Red Cell Distribution Width 18.2 % (11.8-14.3); White Blood Cell 4.4 10^3/uL (4.4-10.8)
[2021-06-11 06:36] LABS: Potassium 3.9 mmol/L (3.5-5.1)
[2021-06-11 07:03] LABS: BUN/Creatinine Ratio 33.3; Calcium 8.7 mg/dL (8.5-10.1)
[2021-06-11] MEDS: ASPirin 81 mg TAB PO SCH (08:37)
[2021-06-11] MEDS: ENOXAPARIN SOD 40 MG/0.4 ML SYRINGE SC SCH (08:37)
[2021-06-11] MEDS: METOPROLOL TARTRATE 50 MG TAB PO SCH ×2 (08:38→20:42)
[2021-06-11] MEDS: FAMOTIDINE 20 MG TAB PO SCH (08:38)
[2021-06-11] MEDS: CHOLECALCIFEROL (VITD3) 2,000 UNIT CAP/TAB PO SCH (08:39)
[2021-06-11 09:00] VITALS: BP 160/69
[2021-06-11 09:43] VITALS: BP 160/69
[2021-06-11 12:59] VITALS: BP 144/63
[2021-06-11 17:00] VITALS: BP 159/60
[2021-06-11] MEDS: ATORVASTATIN 20 MG TAB PO SCH (20:41)
[2021-06-11] MEDS: LORazepam 0.5 MG TAB PO PRN (20:47)
[2021-06-11 23:00] VITALS: BP 153/66
[2021-06-12] MEDS: FUROSEMIDE 40 MG/4 ML VIAL IV SCH (05:07)
[2021-06-12 05:25] VITALS: BP 148/66
[2021-06-12 09:00] VITALS: BP 135/59
[2021-06-12] MEDS: ENOXAPARIN SOD 40 MG/0.4 ML SYRINGE SC SCH (10:00)
[2021-06-12] MEDS: METOPROLOL TARTRATE 50 MG TAB PO SCH ×2 (10:00→21:17)
[2021-06-12] MEDS: ASPirin 81 mg TAB PO SCH (10:00)
[2021-06-12] MEDS: FAMOTIDINE 20 MG TAB PO SCH (10:00)
[2021-06-12] MEDS: CHOLECALCIFEROL (VITD3) 2,000 UNIT CAP/TAB PO SCH (10:00)
[2021-06-12 11:55] LABS: INR 1.13 (0.9-1.15); Partial Thromboplastin Time 28.4 sec (23.0-31.2)
[2021-06-12 13:00] VITALS: BP 161/74
[2021-06-12 17:00] VITALS: BP 149/76
[2021-06-12] MEDS ORDERED: ONDANSETRON HCL 4 MG/2 ML VIAL IV PRN (17:00)
[2021-06-12] MEDS: ATORVASTATIN 20 MG TAB PO SCH (21:17)
[2021-06-12 22:00] VITALS: BP 143/72
[2021-06-13 05:00] VITALS: BP 167/77
[2021-06-13] MEDS: FUROSEMIDE 40 MG/4 ML VIAL IV SCH ×2 (05:21→18:29)
[2021-06-13] MEDS: hydrALAZINE HCL 20 MG/ML VL IV PRN (05:21)
[2021-06-13 05:40] LABS: Basophils # (auto) 0 10 ^3/uL (0-0.2); Basophils % (auto) 0.5 % (0.0-2.0); Eosinophils # (auto) 0.2 10 ^3/uL (0-0.8); Hematocrit 30.2 % (36.0-46.0); Hemoglobin 9.9 g/dL (12.2-16.2); Lymphocytes # (auto) 0.6 10 ^3/uL (0.4-5.4); Lymphocytes % (auto) 14.1 % (10.0-50.0); Mean Corpuscular Hemoglobin 28.7 pg (28.0-32.0); Mean Corpuscular Hgb Conc. 32.7 g/dL (32.0-36.0); Mean Corpuscular Volume 87.6 fL (80.0-100.0); Monocytes # (auto) 0.4 10 ^3/uL (0-1.3); Monocytes % (auto) 9.5 % (0.0-12.0); Neutrophils # (auto) 3.3 10 ^3/uL (1.6-8.6); Neutrophils % (auto) 71.9 % (37.0-80.0); Nucleated Red Blood Cells % 0.1 %; Red Blood Cells 3.45 10^6/uL (4.0-5.20); White Blood Cell 4.5 10^3/uL (4.4-10.8)
[2021-06-13 06:03] LABS: Calcium 8.8 mg/dL (8.5-10.1); Magnesium 1.4 mg/dL (1.6-2.6); Potassium 3.7 mmol/L (3.5-5.1)
[2021-06-13 06:05] LABS: BUN/Creatinine Ratio 29.2
[2021-06-13] MEDS: METOPROLOL TARTRATE 50 MG TAB PO SCH ×2 (08:51→22:04)
[2021-06-13] MEDS: FAMOTIDINE 20 MG TAB PO SCH (08:51)
[2021-06-13] MEDS: CHOLECALCIFEROL (VITD3) 2,000 UNIT CAP/TAB PO SCH (08:51)
[2021-06-13] MEDS: ENOXAPARIN SOD 40 MG/0.4 ML SYRINGE SC SCH (08:51)
[2021-06-13] MEDS: ASPirin 81 mg TAB PO SCH (08:51)
[2021-06-13 09:00] VITALS: BP 138/63
[2021-06-13] MEDS: LORazepam 0.5 MG TAB PO PRN (12:34)
[2021-06-13] MEDS: ACETAMINOPHEN 325 MG TAB PO PRN ×2 (12:34→23:33)
[2021-06-13 13:00] VITALS: BP 140/70
[2021-06-13 17:00] VITALS: BP 157/63
[2021-06-13 22:00] VITALS: BP 156/67
[2021-06-13] MEDS: ATORVASTATIN 20 MG TAB PO SCH (22:04)
[2021-06-14] MEDS: LORazepam 0.5 MG TAB PO PRN ×2 (00:11→21:48)
[2021-06-14 05:00] VITALS: BP 143/59
[2021-06-14 05:35] LABS: Basophils # (auto) 0 10 ^3/uL (0-0.2); Basophils % (auto) 0.6 % (0.0-2.0); Eosinophils # (auto) 0.4 10 ^3/uL (0-0.8); Hematocrit 27.7 % (36.0-46.0); Hemoglobin 9.2 g/dL (12.2-16.2); Lymphocytes # (auto) 0.8 10 ^3/uL (0.4-5.4); Lymphocytes % (auto) 19.2 % (10.0-50.0); Mean Corpuscular Hemoglobin 29.1 pg (28.0-32.0); Mean Corpuscular Hgb Conc. 33.1 g/dL (32.0-36.0); Mean Corpuscular Volume 87.8 fL (80.0-100.0); Monocytes # (auto) 0.4 10 ^3/uL (0-1.3); Neutrophils # (auto) 2.4 10 ^3/uL (1.6-8.6); Neutrophils % (auto) 60.2 % (37.0-80.0); Nucleated Red Blood Cells % 0.2 %; Red Blood Cells 3.16 10^6/uL (4.0-5.20); Red Cell Distribution Width 18.5 % (11.8-14.3)
[2021-06-14 05:49] LABS: Calcium 8.6 mg/dL (8.5-10.1); Potassium 3.6 mmol/L (3.5-5.1)
[2021-06-14 05:51] LABS: BUN/Creatinine Ratio 26.2
[2021-06-14] MEDS: FUROSEMIDE 40 MG/4 ML VIAL IV SCH ×2 (05:51→11:30)
[2021-06-14 09:04] VITALS: BP 155/68
[2021-06-14] MEDS: ASPirin 81 mg TAB PO SCH (09:14)
[2021-06-14] MEDS: CHOLECALCIFEROL (VITD3) 2,000 UNIT CAP/TAB PO SCH (09:15)
[2021-06-14] MEDS: ENOXAPARIN SOD 40 MG/0.4 ML SYRINGE SC SCH (09:15)
[2021-06-14] MEDS: FAMOTIDINE 20 MG TAB PO SCH (09:15)
[2021-06-14] MEDS: METOPROLOL TARTRATE 50 MG TAB PO SCH ×2 (09:45→21:41)
[2021-06-14 12:40] VITALS: BP 142/55
[2021-06-14 16:27] VITALS: BP 144/59
[2021-06-14 20:00] VITALS: BP 116/70
[2021-06-14] MEDS: ATORVASTATIN 20 MG TAB PO SCH (21:41)
[2021-06-14] MEDS: ACETAMINOPHEN 325 MG TAB PO PRN (21:48)
[2021-06-14 22:20] VITALS: BP 122/61
[2021-06-15 05:00] VITALS: BP 134/60
[2021-06-15 05:41] LABS: Basophils # (auto) 0 10 ^3/uL (0-0.2); Basophils % (auto) 0.7 % (0.0-2.0); Eosinophils # (auto) 0.4 10 ^3/uL (0-0.8); Eosinophils % (auto) 8.6 % (0.0-7.0); Hematocrit 28.4 % (36.0-46.0); Hemoglobin 9.4 g/dL (12.2-16.2); Lymphocytes # (auto) 0.9 10 ^3/uL (0.4-5.4); Lymphocytes % (auto) 21.3 % (10.0-50.0); Mean Corpuscular Hemoglobin 28.9 pg (28.0-32.0); Mean Corpuscular Volume 87.6 fL (80.0-100.0); Monocytes # (auto) 0.5 10 ^3/uL (0-1.3); Monocytes % (auto) 11.2 % (0.0-12.0); Neutrophils # (auto) 2.4 10 ^3/uL (1.6-8.6); Neutrophils % (auto) 58.2 % (37.0-80.0); Nucleated Red Blood Cells % 0.1 %; Red Blood Cells 3.24 10^6/uL (4.0-5.20); Red Cell Distribution Width 18.1 % (11.8-14.3); White Blood Cell 4.2 10^3/uL (4.4-10.8)
[2021-06-15 06:03] LABS: Potassium 3.8 mmol/L (3.5-5.1)
[2021-06-15 06:28] LABS: BUN/Creatinine Ratio 24.3
[2021-06-15 08:50] VITALS: BP 157/97
[2021-06-15] MEDS: ASPirin 81 mg TAB PO SCH (09:28)
[2021-06-15] MEDS: ENOXAPARIN SOD 40 MG/0.4 ML SYRINGE SC SCH (09:28)
[2021-06-15] MEDS: FAMOTIDINE 20 MG TAB PO SCH (09:28)
[2021-06-15] MEDS: CHOLECALCIFEROL (VITD3) 2,000 UNIT CAP/TAB PO SCH (09:28)
[2021-06-15] MEDS: FUROSEMIDE 40 MG/4 ML VIAL IV SCH (09:32)
[2021-06-15] MEDS: METOPROLOL TARTRATE 50 MG TAB PO SCH ×2 (09:34→22:19)
[2021-06-15 12:34] VITALS: BP 144/65
[2021-06-15 16:33] VITALS: BP 158/69
[2021-06-15 22:00] VITALS: BP 154/66
[2021-06-15] MEDS: ATORVASTATIN 20 MG TAB PO SCH (22:18)
[2021-06-15] MEDS: LORazepam 0.5 MG TAB PO PRN (22:19)
[2021-06-15] MEDS: ACETAMINOPHEN 325 MG TAB PO PRN (22:20)
[2021-06-16 01:41] VITALS: BP 154/66
[2021-06-16 05:20] VITALS: BP 161/75
[2021-06-16 05:22] LABS: Basophils # (auto) 0 10 ^3/uL (0-0.2); Basophils % (auto) 0.6 % (0.0-2.0); Eosinophils # (auto) 0.4 10 ^3/uL (0-0.8); Eosinophils % (auto) 9.1 % (0.0-7.0); Hematocrit 28.7 % (36.0-46.0); Hemoglobin 9.3 g/dL (12.2-16.2); Lymphocytes # (auto) 0.7 10 ^3/uL (0.4-5.4); Lymphocytes % (auto) 17.9 % (10.0-50.0); Mean Corpuscular Hemoglobin 28.8 pg (28.0-32.0); Mean Corpuscular Hgb Conc. 32.3 g/dL (32.0-36.0); Mean Corpuscular Volume 89.1 fL (80.0-100.0); Monocytes # (auto) 0.4 10 ^3/uL (0-1.3); Monocytes % (auto) 10.9 % (0.0-12.0); Neutrophils # (auto) 2.4 10 ^3/uL (1.6-8.6); Neutrophils % (auto) 61.5 % (37.0-80.0); Red Blood Cells 3.22 10^6/uL (4.0-5.20); Red Cell Distribution Width 18.2 % (11.8-14.3); White Blood Cell 3.8 10^3/uL (4.4-10.8)
[2021-06-16 05:39] LABS: BUN/Creatinine Ratio 21.4; Calcium 8.6 mg/dL (8.5-10.1); Potassium 3.7 mmol/L (3.5-5.1)
[2021-06-16 09:00] VITALS: BP 165/64
[2021-06-16] MEDS: FUROSEMIDE 40 MG/4 ML VIAL IV SCH (10:23)
[2021-06-16] MEDS: METOPROLOL TARTRATE 50 MG TAB PO SCH ×2 (10:24→21:07)
[2021-06-16] MEDS: ASPirin 81 mg TAB PO SCH (10:24)
[2021-06-16] MEDS: ENOXAPARIN SOD 40 MG/0.4 ML SYRINGE SC SCH (10:25)
[2021-06-16] MEDS: FAMOTIDINE 20 MG TAB PO SCH (10:25)
[2021-06-16] MEDS: CHOLECALCIFEROL (VITD3) 2,000 UNIT CAP/TAB PO SCH (10:25)
[2021-06-16 13:00] VITALS: BP 133/81
[2021-06-16 16:54] VITALS: BP 144/63
[2021-06-16] MEDS: ATORVASTATIN 20 MG TAB PO SCH (21:07)
[2021-06-16] MEDS: ACETAMINOPHEN 325 MG TAB PO PRN (21:07)
[2021-06-16] MEDS: LORazepam 0.5 MG TAB PO PRN (21:07)
[2021-06-16 22:00] VITALS: BP 163/74
[2021-06-17 05:00] VITALS: BP 159/66
[2021-06-17 06:29] LABS: Basophils # (auto) 0 10 ^3/uL (0-0.2); Basophils % (auto) 0.6 % (0.0-2.0); Eosinophils # (auto) 0.4 10 ^3/uL (0-0.8); Eosinophils % (auto) 9.7 % (0.0-7.0); Hematocrit 29.6 % (36.0-46.0); Hemoglobin 9.6 g/dL (12.2-16.2); Lymphocytes # (auto) 0.8 10 ^3/uL (0.4-5.4); Mean Corpuscular Hemoglobin 28.8 pg (28.0-32.0); Mean Corpuscular Hgb Conc. 32.4 g/dL (32.0-36.0); Mean Corpuscular Volume 88.7 fL (80.0-100.0); Monocytes # (auto) 0.4 10 ^3/uL (0-1.3); Monocytes % (auto) 10.1 % (0.0-12.0); Neutrophils # (auto) 2.4 10 ^3/uL (1.6-8.6); Neutrophils % (auto) 60.6 % (37.0-80.0); Nucleated Red Blood Cells % 0.1 %; Red Blood Cells 3.34 10^6/uL (4.0-5.20); Red Cell Distribution Width 18.2 % (11.8-14.3)
[2021-06-17 06:46] LABS: BUN/Creatinine Ratio 20.6; Calcium 8.7 mg/dL (8.5-10.1); Potassium 3.7 mmol/L (3.5-5.1)
[2021-06-17 08:00] VITALS: BP 153/70
[2021-06-17 09:00] VITALS: BP 153/70
[2021-06-17] MEDS: FUROSEMIDE 40 MG/4 ML VIAL IV SCH (09:19)
[2021-06-17] MEDS: ASPirin 81 mg TAB PO SCH (09:19)
[2021-06-17] MEDS: FAMOTIDINE 20 MG TAB PO SCH (09:22)
[2021-06-17] MEDS: METOPROLOL TARTRATE 50 MG TAB PO SCH ×2 (09:22→20:44)
[2021-06-17] MEDS: CHOLECALCIFEROL (VITD3) 2,000 UNIT CAP/TAB PO SCH (09:23)
[2021-06-17] MEDS: ENOXAPARIN SOD 40 MG/0.4 ML SYRINGE SC SCH (09:23)
[2021-06-17 12:45] VITALS: BP 159/72
[2021-06-17] MEDS: hydrALAZINE HCL 20 MG/ML VL IV PRN (14:45)
[2021-06-17 16:40] VITALS: BP 166/73
[2021-06-17] MEDS: ATORVASTATIN 20 MG TAB PO SCH (20:43)
[2021-06-17 22:00] VITALS: BP 150/70
[2021-06-17] MEDS: ACETAMINOPHEN 325 MG TAB PO PRN (23:03)
[2021-06-17] MEDS: LORazepam 0.5 MG TAB PO PRN (23:03)
[2021-06-18 05:00] VITALS: BP 158/81
[2021-06-18 06:06] LABS: Basophils # (auto) 0 10 ^3/uL (0-0.2); Basophils % (auto) 0.6 % (0.0-2.0); Eosinophils # (auto) 0.3 10 ^3/uL (0-0.8); Eosinophils % (auto) 7.8 % (0.0-7.0); Hematocrit 29.6 % (36.0-46.0); Hemoglobin 9.5 g/dL (12.2-16.2); Lymphocytes # (auto) 0.7 10 ^3/uL (0.4-5.4); Mean Corpuscular Hemoglobin 28.4 pg (28.0-32.0); Mean Corpuscular Hgb Conc. 32.1 g/dL (32.0-36.0); Mean Corpuscular Volume 88.5 fL (80.0-100.0); Monocytes # (auto) 0.4 10 ^3/uL (0-1.3); Monocytes % (auto) 9.4 % (0.0-12.0); Neutrophils # (auto) 2.8 10 ^3/uL (1.6-8.6); Neutrophils % (auto) 65.2 % (37.0-80.0); Nucleated Red Blood Cells % 0.1 %; Red Blood Cells 3.34 10^6/uL (4.0-5.20); White Blood Cell 4.3 10^3/uL (4.4-10.8)
[2021-06-18] MEDS: hydrALAZINE HCL 20 MG/ML VL IV PRN ×2 (06:08→22:58)
[2021-06-18 06:27] LABS: BUN/Creatinine Ratio 19.6; Calcium 8.5 mg/dL (8.5-10.1); Potassium 3.6 mmol/L (3.5-5.1)
[2021-06-18 09:00] VITALS: BP 135/58
[2021-06-18] MEDS: FUROSEMIDE 40 MG/4 ML VIAL IV SCH (09:28)
[2021-06-18] MEDS: ASPirin 81 mg TAB PO SCH (09:28)
[2021-06-18] MEDS: FAMOTIDINE 20 MG TAB PO SCH (09:29)
[2021-06-18] MEDS: CHOLECALCIFEROL (VITD3) 2,000 UNIT CAP/TAB PO SCH (09:29)
[2021-06-18] MEDS: ENOXAPARIN SOD 40 MG/0.4 ML SYRINGE SC SCH ×2 (09:30→09:47)
[2021-06-18] MEDS: METOPROLOL TARTRATE 50 MG TAB PO SCH ×2 (09:37→21:39)
[2021-06-18 13:00] VITALS: BP 142/67
[2021-06-18 17:00] VITALS: BP 142/71
[2021-06-18] MEDS: ATORVASTATIN 20 MG TAB PO SCH (21:38)
[2021-06-18 21:39] VITALS: BP 159/71
[2021-06-18] MEDS: ACETAMINOPHEN 325 MG TAB PO PRN (21:39)
[2021-06-18] MEDS: LORazepam 0.5 MG TAB PO PRN (21:39)
[2021-06-19 05:03] VITALS: BP 121/71
[2021-06-19] MEDS: hydrALAZINE HCL 20 MG/ML VL IV PRN ×2 (05:35→23:15)
[2021-06-19 07:49] VITALS: BP 156/68
[2021-06-19 09:00] VITALS: BP 145/92
[2021-06-19] MEDS: ENOXAPARIN SOD 40 MG/0.4 ML SYRINGE SC SCH (10:23)
[2021-06-19] MEDS: ASPirin 81 mg TAB PO SCH (10:23)
[2021-06-19] MEDS: FAMOTIDINE 20 MG TAB PO SCH (10:23)
[2021-06-19] MEDS: METOPROLOL TARTRATE 50 MG TAB PO SCH ×2 (10:24→21:41)
[2021-06-19] MEDS: CHOLECALCIFEROL (VITD3) 2,000 UNIT CAP/TAB PO SCH (10:24)
[2021-06-19] MEDS: FUROSEMIDE 40 MG/4 ML VIAL IV SCH (10:24)
[2021-06-19] MEDS: ACETAMINOPHEN 325 MG TAB PO PRN ×2 (10:37→21:42)
[2021-06-19 13:00] VITALS: BP 145/57
[2021-06-19 17:00] VITALS: BP 142/62
[2021-06-19] MEDS: ATORVASTATIN 20 MG TAB PO SCH (21:40)
[2021-06-19] MEDS: LORazepam 0.5 MG TAB PO PRN (21:41)
[2021-06-19 22:00] VITALS: BP 153/70
[2021-06-20 05:00] VITALS: BP 160/63
[2021-06-20] MEDS: hydrALAZINE HCL 20 MG/ML VL IV PRN (05:15)
[2021-06-20 06:32] LABS: Potassium 3.7 mmol/L (3.5-5.1)
[2021-06-20 06:39] LABS: BUN/Creatinine Ratio 15.9; Calcium 8.7 mg/dL (8.5-10.1); Magnesium 1.5 mg/dL (1.6-2.6)
[2021-06-20 09:00] VITALS: BP 122/58
[2021-06-20] MEDS: FAMOTIDINE 20 MG TAB PO SCH (09:34)
[2021-06-20] MEDS: ASPirin 81 mg TAB PO SCH (09:34)
[2021-06-20] MEDS: ENOXAPARIN SOD 40 MG/0.4 ML SYRINGE SC SCH ×2 (09:34→09:45)
[2021-06-20] MEDS: CHOLECALCIFEROL (VITD3) 2,000 UNIT CAP/TAB PO SCH (09:34)
[2021-06-20] MEDS: METOPROLOL TARTRATE 50 MG TAB PO SCH ×2 (09:35→22:07)
[2021-06-20] MEDS: FUROSEMIDE 40 MG/4 ML VIAL IV SCH (09:36)
[2021-06-20] MEDS: Ensure HIGH Protein Chocolate 8oz Bottle PO SCH ×2 (12:30→18:00)
[2021-06-20] MEDS: Glucerna Carbsteady SHAKE Vanilla 8oz PO SCH ×2 (12:45→18:00)
[2021-06-20 12:56] VITALS: BP 121/46
[2021-06-20 16:58] VITALS: BP 126/63
[2021-06-20] MEDS: MAGNESIUM SULFATE 1GM/100ML 100 ML IV SCH ×4 (20:18→21:00)
[2021-06-20 22:00] VITALS: BP 145/61
[2021-06-20] MEDS: ATORVASTATIN 20 MG TAB PO SCH (22:07)
[2021-06-20] MEDS: LORazepam 0.5 MG TAB PO PRN (22:07)
[2021-06-20] MEDS: ACETAMINOPHEN 325 MG TAB PO PRN (22:08)
[2021-06-21 02:10] VITALS: BP 145/61
[2021-06-21 05:00] VITALS: BP 156/62
[2021-06-21 06:47] LABS: Basophils # (auto) 0 10 ^3/uL (0-0.2); Basophils % (auto) 0.5 % (0.0-2.0); Eosinophils # (auto) 0.2 10 ^3/uL (0-0.8); Eosinophils % (auto) 5.5 % (0.0-7.0); Hematocrit 26.4 % (36.0-46.0); Hemoglobin 8.9 g/dL (12.2-16.2); Lymphocytes # (auto) 0.8 10 ^3/uL (0.4-5.4); Lymphocytes % (auto) 17.1 % (10.0-50.0); Mean Corpuscular Hemoglobin 29.9 pg (28.0-32.0); Mean Corpuscular Hgb Conc. 33.7 g/dL (32.0-36.0); Mean Corpuscular Volume 88.7 fL (80.0-100.0); Monocytes # (auto) 0.5 10 ^3/uL (0-1.3); Monocytes % (auto) 11.9 % (0.0-12.0); Neutrophils # (auto) 2.9 10 ^3/uL (1.6-8.6); Red Blood Cells 2.97 10^6/uL (4.0-5.20); Red Cell Distribution Width 18.2 % (11.8-14.3); White Blood Cell 4.5 10^3/uL (4.4-10.8)
[2021-06-21 07:04] LABS: BUN/Creatinine Ratio 16.7; Calcium 8.4 mg/dL (8.5-10.1); Magnesium 1.9 mg/dL (1.6-2.6); Potassium 3.9 mmol/L (3.5-5.1)
[2021-06-21] MEDS: Ensure HIGH Protein Chocolate 8oz Bottle PO SCH ×3 (08:00→18:00)
[2021-06-21] MEDS: Glucerna Carbsteady SHAKE Vanilla 8oz PO SCH ×3 (08:05→18:30)
[2021-06-21 09:00] VITALS: BP 139/48
[2021-06-21] MEDS: FUROSEMIDE 40 MG/4 ML VIAL IV SCH (09:40)
[2021-06-21] MEDS: FAMOTIDINE 20 MG TAB PO SCH (09:40)
[2021-06-21] MEDS: ENOXAPARIN SOD 40 MG/0.4 ML SYRINGE SC SCH (09:40)
[2021-06-21] MEDS: METOPROLOL TARTRATE 50 MG TAB PO SCH ×2 (09:41→21:09)
[2021-06-21] MEDS: ASPirin 81 mg TAB PO SCH (09:41)
[2021-06-21] MEDS: CHOLECALCIFEROL (VITD3) 2,000 UNIT CAP/TAB PO SCH (09:41)
[2021-06-21] MEDS ORDERED: MAGNESIUM SULFATE 1GM/100ML 100 ML IV ONE (12:00)
[2021-06-21 13:00] VITALS: BP 135/56
[2021-06-21] MEDS ORDERED: MAGNESIUM OXIDE 400 MG TAB PO ONE (14:30)
[2021-06-21 17:00] VITALS: BP 153/64
[2021-06-21] MEDS: ATORVASTATIN 20 MG TAB PO SCH (21:09)
[2021-06-21] MEDS: LORazepam 0.5 MG TAB PO PRN (21:58)
[2021-06-21] MEDS: ACETAMINOPHEN 325 MG TAB PO PRN (21:58)
[2021-06-21 22:00] VITALS: BP 137/56
[2021-06-22 05:00] VITALS: BP 138/61
[2021-06-22] MEDS: Ensure HIGH Protein Chocolate 8oz Bottle PO SCH ×3 (08:00→18:00)
[2021-06-22] MEDS: Glucerna Carbsteady SHAKE Vanilla 8oz PO SCH ×3 (08:20→18:30)
[2021-06-22 09:00] VITALS: BP 167/54
[2021-06-22] MEDS: CHOLECALCIFEROL (VITD3) 2,000 UNIT CAP/TAB PO SCH (09:58)
[2021-06-22] MEDS: ASPirin 81 mg TAB PO SCH (09:58)
[2021-06-22] MEDS: FUROSEMIDE 20 MG/2 ML VIAL IV SCH (09:58)
[2021-06-22] MEDS: FAMOTIDINE 20 MG TAB PO SCH (09:58)
[2021-06-22] MEDS: METOPROLOL TARTRATE 50 MG TAB PO SCH ×2 (09:59→22:07)
[2021-06-22] MEDS: ENOXAPARIN SOD 40 MG/0.4 ML SYRINGE SC SCH (09:59)
[2021-06-22 13:00] VITALS: BP 142/59
[2021-06-22 17:00] VITALS: BP 148/68
[2021-06-22 20:09] VITALS: BP 142/59
[2021-06-22 22:00] VITALS: BP 149/63
[2021-06-22] MEDS: ATORVASTATIN 20 MG TAB PO SCH (22:06)
[2021-06-22] MEDS: LORazepam 0.5 MG TAB PO PRN (22:07)
[2021-06-22] MEDS: ACETAMINOPHEN 325 MG TAB PO PRN (22:07)
[2021-06-23 05:00] VITALS: BP 136/64
[2021-06-23] MEDS: Glucerna Carbsteady SHAKE Vanilla 8oz PO SCH ×3 (08:00→18:07)
[2021-06-23] MEDS: Ensure HIGH Protein Chocolate 8oz Bottle PO SCH ×3 (08:00→18:07)
[2021-06-23 08:35] LABS: BUN/Creatinine Ratio 18.7; Calcium 8.9 mg/dL (8.5-10.1); Magnesium 1.8 mg/dL (1.6-2.6); Potassium 3.8 mmol/L (3.5-5.1)
[2021-06-23 09:00] VITALS: BP 149/52
[2021-06-23] MEDS: FUROSEMIDE 20 MG/2 ML VIAL IV SCH (10:17)
[2021-06-23] MEDS: ASPirin 81 mg TAB PO SCH (10:18)
[2021-06-23] MEDS: METOPROLOL TARTRATE 50 MG TAB PO SCH ×2 (10:18→21:50)
[2021-06-23] MEDS: FAMOTIDINE 20 MG TAB PO SCH (10:19)
[2021-06-23] MEDS: ENOXAPARIN SOD 40 MG/0.4 ML SYRINGE SC SCH (10:20)
[2021-06-23] MEDS: CHOLECALCIFEROL (VITD3) 2,000 UNIT CAP/TAB PO SCH (10:20)
[2021-06-23 13:00] VITALS: BP 109/52
[2021-06-23 16:56] VITALS: BP 147/56
[2021-06-23] MEDS: ATORVASTATIN 20 MG TAB PO SCH (21:50)
[2021-06-23] MEDS: LORazepam 0.5 MG TAB PO PRN (21:50)
[2021-06-23] MEDS: ACETAMINOPHEN 325 MG TAB PO PRN (21:51)
[2021-06-23 22:00] VITALS: BP 153/42
[2021-06-24 05:00] VITALS: BP 155/74
[2021-06-24] MEDS: hydrALAZINE HCL 20 MG/ML VL IV PRN (05:58)
[2021-06-24] MEDS: Glucerna Carbsteady SHAKE Vanilla 8oz PO SCH ×3 (08:00→18:22)
[2021-06-24] MEDS: Ensure HIGH Protein Chocolate 8oz Bottle PO SCH ×3 (08:00→18:21)
[2021-06-24 09:00] VITALS: BP 119/47
[2021-06-24] MEDS: METOPROLOL TARTRATE 50 MG TAB PO SCH ×2 (10:00→22:37)
[2021-06-24] MEDS: FUROSEMIDE 20 MG/2 ML VIAL IV SCH (10:00)
[2021-06-24] MEDS: ASPirin 81 mg TAB PO SCH (10:00)
[2021-06-24] MEDS: ENOXAPARIN SOD 40 MG/0.4 ML SYRINGE SC SCH (10:00)
[2021-06-24] MEDS: FAMOTIDINE 20 MG TAB PO SCH (10:00)
[2021-06-24] MEDS: CHOLECALCIFEROL (VITD3) 2,000 UNIT CAP/TAB PO SCH (10:00)
[2021-06-24 13:00] VITALS: BP 120/52
[2021-06-24 17:00] VITALS: BP 126/59
[2021-06-24 22:00] VITALS: BP 124/54
[2021-06-24] MEDS: LORazepam 0.5 MG TAB PO PRN (22:36)
[2021-06-24] MEDS: ATORVASTATIN 20 MG TAB PO SCH (22:36)
[2021-06-24] MEDS: ACETAMINOPHEN 325 MG TAB PO PRN (22:36)
[2021-06-25 05:00] VITALS: BP 150/60
[2021-06-25 06:37] LABS: Basophils # (auto) 0 10 ^3/uL (0-0.2); Basophils % (auto) 0.7 % (0.0-2.0); Eosinophils # (auto) 0.3 10 ^3/uL (0-0.8); Eosinophils % (auto) 5.5 % (0.0-7.0); Hemoglobin 9.1 g/dL (12.2-16.2); Lymphocytes % (auto) 20.5 % (10.0-50.0); Mean Corpuscular Hemoglobin 29.1 pg (28.0-32.0); Mean Corpuscular Hgb Conc. 32.5 g/dL (32.0-36.0); Mean Corpuscular Volume 89.4 fL (80.0-100.0); Monocytes # (auto) 0.6 10 ^3/uL (0-1.3); Neutrophils % (auto) 61.3 % (37.0-80.0); Red Blood Cells 3.13 10^6/uL (4.0-5.20); Red Cell Distribution Width 18.4 % (11.8-14.3); White Blood Cell 4.8 10^3/uL (4.4-10.8)
[2021-06-25 06:48] LABS: Albumin 1.8 g/dL (3.4-5.0); Calcium 9.1 mg/dL (8.5-10.1); Potassium 4.6 mmol/L (3.5-5.1)
[2021-06-25 06:54] LABS: BUN/Creatinine Ratio 18.8; Bilirubin, Total 0.7 mg/dL (0.2-1.0); Total Protein 5.5 g/dL (6.4-8.2)
[2021-06-25] MEDS: Ensure HIGH Protein Chocolate 8oz Bottle PO SCH ×3 (08:00→18:00)
[2021-06-25 09:03] VITALS: BP 118/54
[2021-06-25] MEDS: Glucerna Carbsteady SHAKE Vanilla 8oz PO SCH ×3 (10:22→18:33)
[2021-06-25] MEDS: FUROSEMIDE 20 MG/2 ML VIAL IV SCH (10:22)
[2021-06-25] MEDS: ASPirin 81 mg TAB PO SCH (10:22)
[2021-06-25] MEDS: METOPROLOL TARTRATE 50 MG TAB PO SCH ×2 (10:23→22:00)
[2021-06-25] MEDS: CHOLECALCIFEROL (VITD3) 2,000 UNIT CAP/TAB PO SCH (10:23)
[2021-06-25] MEDS: FAMOTIDINE 20 MG TAB PO SCH (10:23)
[2021-06-25] MEDS: ENOXAPARIN SOD 40 MG/0.4 ML SYRINGE SC SCH (10:23)
[2021-06-25] MEDS ORDERED: MAGNESIUM SULFATE 1GM/100ML 100 ML IV ONE (12:15)
[2021-06-25 13:00] VITALS: BP 130/55
[2021-06-25 16:59] VITALS: BP 138/53
[2021-06-25] MEDS: ACETAMINOPHEN 325 MG TAB PO PRN ×2 (17:03→22:06)
[2021-06-25 20:14] VITALS: BP 138/53
[2021-06-25] MEDS: LORazepam 0.5 MG TAB PO PRN (21:56)
[2021-06-25] MEDS: ATORVASTATIN 20 MG TAB PO SCH (21:56)
[2021-06-25 22:00] VITALS: BP 130/69
[2021-06-26 05:00] VITALS: BP 159/73
[2021-06-26] MEDS: hydrALAZINE HCL 20 MG/ML VL IV PRN (07:01)
[2021-06-26 07:10] LABS: BUN/Creatinine Ratio 19.7; Calcium 9.3 mg/dL (8.5-10.1); Magnesium 2.2 mg/dL (1.6-2.6)
[2021-06-26 07:34] LABS: Potassium 5.1 mmol/L (3.5-5.1)
[2021-06-26 08:44] VITALS: BP 137/70
[2021-06-26] MEDS: Glucerna Carbsteady SHAKE Vanilla 8oz PO SCH ×3 (09:56→17:48)
[2021-06-26] MEDS: Ensure HIGH Protein Chocolate 8oz Bottle PO SCH ×3 (09:56→17:48)
[2021-06-26] MEDS: ASPirin 81 mg TAB PO SCH (09:57)
[2021-06-26] MEDS: FUROSEMIDE 20 MG/2 ML VIAL IV SCH (09:57)
[2021-06-26] MEDS: METOPROLOL TARTRATE 50 MG TAB PO SCH ×3 (09:57→21:47)
[2021-06-26] MEDS: CHOLECALCIFEROL (VITD3) 2,000 UNIT CAP/TAB PO SCH (09:58)
[2021-06-26] MEDS: ENOXAPARIN SOD 40 MG/0.4 ML SYRINGE SC SCH (09:58)
[2021-06-26] MEDS: FAMOTIDINE 20 MG TAB PO SCH (09:58)
[2021-06-26 12:58] VITALS: BP 138/62
[2021-06-26 17:00] VITALS: BP 136/55
[2021-06-26] MEDS: ATORVASTATIN 20 MG TAB PO SCH (21:46)
[2021-06-26] MEDS: LORazepam 0.5 MG TAB PO PRN (21:47)
[2021-06-26] MEDS: ACETAMINOPHEN 325 MG TAB PO PRN (21:47)
[2021-06-26 22:00] VITALS: BP 128/48
[2021-06-27 05:00] VITALS: BP 148/62
[2021-06-27 06:32] LABS: Hematocrit 26.7 % (36.0-46.0); Hemoglobin 8.8 g/dL (12.2-16.2)
[2021-06-27 06:50] LABS: Potassium 5.3 mmol/L (3.5-5.1)
[2021-06-27 07:04] LABS: BUN/Creatinine Ratio 20.7; Calcium 9.1 mg/dL (8.5-10.1)
[2021-06-27 08:00] VITALS: BP 140/63
[2021-06-27] MEDS: Ensure HIGH Protein Chocolate 8oz Bottle PO SCH ×3 (08:43→18:26)
[2021-06-27] MEDS: Glucerna Carbsteady SHAKE Vanilla 8oz PO SCH ×3 (08:43→18:26)
[2021-06-27] MEDS: FUROSEMIDE 20 MG/2 ML VIAL IV SCH (08:44)
[2021-06-27] MEDS: ASPirin 81 mg TAB PO SCH (08:44)
[2021-06-27] MEDS: METOPROLOL TARTRATE 50 MG TAB PO SCH ×2 (08:44→21:45)
[2021-06-27] MEDS: FAMOTIDINE 20 MG TAB PO SCH (08:44)
[2021-06-27] MEDS: CHOLECALCIFEROL (VITD3) 2,000 UNIT CAP/TAB PO SCH (08:44)
[2021-06-27] MEDS: ENOXAPARIN SOD 40 MG/0.4 ML SYRINGE SC SCH (08:45)
[2021-06-27] MEDS ORDERED: SODIUM ZIRCONIUM CYCL 10 GM PAK PO ONE (10:15)
[2021-06-27 12:00] VITALS: BP 117/69
[2021-06-27 16:00] VITALS: BP 142/71
[2021-06-27] MEDS: ATORVASTATIN 20 MG TAB PO SCH (21:44)
[2021-06-27] MEDS: ACETAMINOPHEN 325 MG TAB PO PRN (21:45)
[2021-06-27] MEDS: LORazepam 0.5 MG TAB PO PRN (21:46)
[2021-06-27 22:00] VITALS: BP 158/62
[2021-06-28] VITALS (7 sets, daily range): BP systolic 135–168; BP diastolic 45–71
[2021-06-28 06:20] LABS: Potassium 5.4 mmol/L (3.5-5.1)
[2021-06-28 06:24] LABS: BUN/Creatinine Ratio 23.8; Calcium 8.9 mg/dL (8.5-10.1)
[2021-06-28] MEDS: ENOXAPARIN SOD 40 MG/0.4 ML SYRINGE SC SCH ×2 (10:00→10:19)
[2021-06-28] MEDS: CHOLECALCIFEROL (VITD3) 2,000 UNIT CAP/TAB PO SCH (10:18)
[2021-06-28] MEDS: METOPROLOL TARTRATE 50 MG TAB PO SCH ×3 (10:18→22:40)
[2021-06-28] MEDS: ASPirin 81 mg TAB PO SCH (10:18)
[2021-06-28] MEDS: FAMOTIDINE 20 MG TAB PO SCH (10:18)
[2021-06-28] MEDS: FUROSEMIDE 20 MG/2 ML VIAL IV SCH (10:19)
[2021-06-28] MEDS: Glucerna Carbsteady SHAKE Vanilla 8oz PO SCH ×3 (10:20→18:00)
[2021-06-28] MEDS: Ensure HIGH Protein Chocolate 8oz Bottle PO SCH ×3 (10:20→18:00)
[2021-06-28] MEDS: SODIUM ZIRCONIUM CYCL 10 GM PAK PO SCH ×2 (14:03→23:49)
[2021-06-28] MEDS: ATORVASTATIN 20 MG TAB PO SCH (21:39)
[2021-06-28] MEDS: ACETAMINOPHEN 325 MG TAB PO PRN (21:46)
[2021-06-28] MEDS: LORazepam 0.5 MG TAB PO PRN (21:46)
[2021-06-29] VITALS (7 sets, daily range): BP systolic 135–156; BP diastolic 56–74
[2021-06-29] MEDS: hydrALAZINE HCL 20 MG/ML VL IV PRN
[2021-06-29] MEDS: SODIUM ZIRCONIUM CYCL 10 GM PAK PO SCH ×3 (05:25→22:09)
[2021-06-29 06:49] LABS: BUN/Creatinine Ratio 28.1; Calcium 9.1 mg/dL (8.5-10.1); Magnesium 1.8 mg/dL (1.6-2.6); Potassium 5.2 mmol/L (3.5-5.1)
[2021-06-29] MEDS: Ensure HIGH Protein Chocolate 8oz Bottle PO SCH ×3 (08:00→18:00)
[2021-06-29] MEDS ORDERED: MAGNESIUM SULFATE 1GM/100ML 100 ML IV ONE (09:45)
[2021-06-29] MEDS: CHOLECALCIFEROL (VITD3) 2,000 UNIT CAP/TAB PO SCH (10:56)
[2021-06-29] MEDS: ENOXAPARIN SOD 40 MG/0.4 ML SYRINGE SC SCH (10:59)
[2021-06-29] MEDS: FAMOTIDINE 20 MG TAB PO SCH (10:59)
[2021-06-29] MEDS: ASPirin 81 mg TAB PO SCH (11:01)
[2021-06-29] MEDS: METOPROLOL TARTRATE 50 MG TAB PO SCH ×2 (11:02→22:09)
[2021-06-29] MEDS: FUROSEMIDE 20 MG/2 ML VIAL IV SCH (11:02)
[2021-06-29] MEDS: Glucerna Carbsteady SHAKE Vanilla 8oz PO SCH ×3 (11:03→18:00)
[2021-06-29] MEDS ORDERED: SODIUM ZIRCONIUM CYCL 10 GM PAK PO ONE (14:00)
[2021-06-29] MEDS: ATORVASTATIN 20 MG TAB PO SCH (22:09)
[2021-06-29] MEDS: LORazepam 0.5 MG TAB PO PRN (22:09)
[2021-06-29] MEDS: ACETAMINOPHEN 325 MG TAB PO PRN (22:10)
[2021-06-30 05:00] VITALS: BP 129/63
[2021-06-30 05:37] LABS: Hematocrit 27.3 % (36.0-46.0); Hemoglobin 8.9 g/dL (12.2-16.2)
[2021-06-30 05:52] LABS: Magnesium 2.2 mg/dL (1.6-2.6)
[2021-06-30 05:54] LABS: BUN/Creatinine Ratio 26.3; Calcium 9.3 mg/dL (8.5-10.1)
[2021-06-30] MEDS: SODIUM ZIRCONIUM CYCL 10 GM PAK PO SCH (06:00)
[2021-06-30] MEDS: Ensure HIGH Protein Chocolate 8oz Bottle PO SCH ×3 (08:00→17:23)
[2021-06-30 09:00] VITALS: BP 164/60
[2021-06-30] MEDS: ENOXAPARIN SOD 40 MG/0.4 ML SYRINGE SC SCH (10:00)
[2021-06-30] MEDS: FUROSEMIDE 20 MG/2 ML VIAL IV SCH (10:50)
[2021-06-30] MEDS: ASPirin 81 mg TAB PO SCH (10:51)
[2021-06-30] MEDS: CHOLECALCIFEROL (VITD3) 2,000 UNIT CAP/TAB PO SCH (10:51)
[2021-06-30] MEDS: FAMOTIDINE 20 MG TAB PO SCH (10:52)
[2021-06-30] MEDS: METOPROLOL TARTRATE 50 MG TAB PO SCH ×2 (10:52→22:30)
[2021-06-30 13:00] VITALS: BP 138/70
[2021-06-30] MEDS: Glucerna Carbsteady SHAKE Vanilla 8oz PO SCH ×5 (17:25→18:00)
[2021-06-30] MEDS: ACETAMINOPHEN 325 MG TAB PO PRN (17:40)
[2021-06-30 20:00] VITALS: BP 155/68
[2021-06-30 22:00] VITALS: BP 155/68
[2021-06-30] MEDS: ATORVASTATIN 20 MG TAB PO SCH (22:30)
[2021-06-30 22:36] VITALS: BP 155/68
[2021-06-30] MEDS: hydrALAZINE HCL 20 MG/ML VL IV PRN (23:59)
[2021-07-01] VITALS (7 sets, daily range): BP systolic 112–156; BP diastolic 54–71
[2021-07-01] MEDS: ACETAMINOPHEN 325 MG TAB PO PRN ×3 (00:13→21:47)
[2021-07-01] MEDS: LORazepam 0.5 MG TAB PO PRN (00:13)
[2021-07-01 07:49] LABS: Calcium 9.2 mg/dL (8.5-10.1); Potassium 5.4 mmol/L (3.5-5.1)
[2021-07-01 07:53] LABS: BUN/Creatinine Ratio 28.1
[2021-07-01] MEDS ORDERED: CALCIUM GLUC 1,000mg/50ml-NS 50 ML IV ONE (09:45)
[2021-07-01] MEDS ORDERED: SODIUM ZIRCONIUM CYCL 10 GM PAK PO ONE (09:45)
[2021-07-01] MEDS ORDERED: SODIUM BICARBONATE 8.4 % INJ 50ML VIAL IV ONE (09:45)
[2021-07-01] MEDS: FUROSEMIDE 20 MG/2 ML VIAL IV SCH (10:40)
[2021-07-01] MEDS: ASPirin 81 mg TAB PO SCH (10:40)
[2021-07-01] MEDS: CHOLECALCIFEROL (VITD3) 2,000 UNIT CAP/TAB PO SCH (10:40)
[2021-07-01] MEDS: METOPROLOL TARTRATE 50 MG TAB PO SCH ×2 (10:41→21:47)
[2021-07-01] MEDS: FAMOTIDINE 20 MG TAB PO SCH (10:41)
[2021-07-01] MEDS: ENOXAPARIN SOD 40 MG/0.4 ML SYRINGE SC SCH (10:42)
[2021-07-01] MEDS: Ensure HIGH Protein Chocolate 8oz Bottle PO SCH ×2 (11:47→12:02)
[2021-07-01] MEDS: Glucerna Carbsteady SHAKE Vanilla 8oz PO SCH ×2 (11:47→12:02)
[2021-07-01] MEDS: GABAPENTIN 100 MG CAP PO SCH ×3 (11:48→21:47)
[2021-07-01] MEDS: hydrALAZINE HCL 20 MG/ML VL IV PRN (12:03)
[2021-07-01] MEDS: ATORVASTATIN 20 MG TAB PO SCH (21:47)
[2021-07-02 05:00] VITALS: BP 138/60
[2021-07-02] MEDS: GABAPENTIN 100 MG CAP PO SCH ×3 (06:11→23:26)
[2021-07-02] MEDS: Ensure HIGH Protein Chocolate 8oz Bottle PO SCH ×4 (07:37→19:44)
[2021-07-02] MEDS: Glucerna Carbsteady SHAKE Vanilla 8oz PO SCH ×4 (07:37→19:45)
[2021-07-02 08:00] VITALS: BP 140/73
[2021-07-02 09:00] VITALS: BP 140/73
[2021-07-02] MEDS: ENOXAPARIN SOD 40 MG/0.4 ML SYRINGE SC SCH (10:00)
[2021-07-02] MEDS: FAMOTIDINE 20 MG TAB PO SCH (11:48)
[2021-07-02] MEDS: FUROSEMIDE 20 MG/2 ML VIAL IV SCH (11:48)
[2021-07-02] MEDS: METOPROLOL TARTRATE 50 MG TAB PO SCH ×2 (11:49→23:26)
[2021-07-02] MEDS: CHOLECALCIFEROL (VITD3) 2,000 UNIT CAP/TAB PO SCH (11:49)
[2021-07-02] MEDS: ASPirin 81 mg TAB PO SCH (11:49)
[2021-07-02 12:52] VITALS: BP 134/65
[2021-07-02] MEDS: ACETAMINOPHEN 325 MG TAB PO PRN ×2 (13:50→23:28)
[2021-07-02 17:00] VITALS: BP 136/71
[2021-07-02 22:00] VITALS: BP 110/56
[2021-07-02] MEDS: ATORVASTATIN 20 MG TAB PO SCH (23:26)
[2021-07-02] MEDS: SODIUM ZIRCONIUM CYCL 10 GM PAK PO SCH (23:27)
[2021-07-03 05:00] VITALS: BP 139/59
[2021-07-03] MEDS: GABAPENTIN 100 MG CAP PO SCH ×3 (06:47→21:44)
[2021-07-03] MEDS: SODIUM ZIRCONIUM CYCL 10 GM PAK PO SCH ×3 (06:47→21:42)
[2021-07-03 07:08] LABS: BUN/Creatinine Ratio 29.5; Calcium 9.2 mg/dL (8.5-10.1)
[2021-07-03 07:37] LABS: Potassium 5.7 mmol/L (3.5-5.1)
[2021-07-03] MEDS: Ensure HIGH Protein Chocolate 8oz Bottle PO SCH ×3 (08:06→17:54)
[2021-07-03] MEDS: Glucerna Carbsteady SHAKE Vanilla 8oz PO SCH ×3 (08:06→17:54)
[2021-07-03 08:52] VITALS: BP 130/58
[2021-07-03] MEDS: ACETAMINOPHEN 325 MG TAB PO PRN ×2 (09:50→15:55)
[2021-07-03] MEDS: ASPirin 81 mg TAB PO SCH (09:51)
[2021-07-03] MEDS: FAMOTIDINE 20 MG TAB PO SCH (09:51)
[2021-07-03] MEDS: FUROSEMIDE 20 MG/2 ML VIAL IV SCH (09:51)
[2021-07-03] MEDS: METOPROLOL TARTRATE 50 MG TAB PO SCH ×2 (09:51→21:43)
[2021-07-03] MEDS: CHOLECALCIFEROL (VITD3) 2,000 UNIT CAP/TAB PO SCH (09:51)
[2021-07-03] MEDS: ENOXAPARIN SOD 40 MG/0.4 ML SYRINGE SC SCH (09:52)
[2021-07-03] MEDS ORDERED: SODIUM ZIRCONIUM CYCL 10 GM PAK PO ONE (11:45)
[2021-07-03] MEDS ORDERED: ALBUTEROL SULF 2.5 MG/0.5ML(0.5%) NEB SOLN NEB ONE (12:45)
[2021-07-03] MEDS ORDERED: SODIUM CHLORIDE 0.9% 1,000 ML IV ONE (12:45)
[2021-07-03] MEDS ORDERED: SODIUM BICARBONATE 8.4% INJ 50ML SYRINGE IV ONE (12:45)
[2021-07-03 13:00] VITALS: BP 141/69
[2021-07-03 17:00] VITALS: BP 134/59
[2021-07-03] MEDS: ATORVASTATIN 20 MG TAB PO SCH (21:44)
[2021-07-03 22:00] VITALS: BP 125/52
[2021-07-04] MEDS: ACETAMINOPHEN 325 MG TAB PO PRN ×2 (00:10→14:06)
[2021-07-04 01:33] VITALS: BP 125/52
[2021-07-04 05:00] VITALS: BP 133/61
[2021-07-04] MEDS: GABAPENTIN 100 MG CAP PO SCH ×3 (05:42→21:31)
[2021-07-04] MEDS: SODIUM ZIRCONIUM CYCL 10 GM PAK PO SCH (05:43)
[2021-07-04 06:36] LABS: BUN/Creatinine Ratio 34.1; Calcium 8.8 mg/dL (8.5-10.1); Potassium 4.7 mmol/L (3.5-5.1)
[2021-07-04] MEDS: Glucerna Carbsteady SHAKE Vanilla 8oz PO SCH ×3 (08:45→18:00)
[2021-07-04] MEDS: FUROSEMIDE 20 MG/2 ML VIAL IV SCH (08:45)
[2021-07-04] MEDS: Ensure HIGH Protein Chocolate 8oz Bottle PO SCH ×3 (08:45→18:31)
[2021-07-04] MEDS: FAMOTIDINE 20 MG TAB PO SCH (08:46)
[2021-07-04] MEDS: CHOLECALCIFEROL (VITD3) 2,000 UNIT CAP/TAB PO SCH (08:46)
[2021-07-04] MEDS: METOPROLOL TARTRATE 50 MG TAB PO SCH ×2 (08:46→21:26)
[2021-07-04] MEDS: ASPirin 81 mg TAB PO SCH (08:46)
[2021-07-04] MEDS: ENOXAPARIN SOD 40 MG/0.4 ML SYRINGE SC SCH (08:46)
[2021-07-04 09:00] VITALS: BP 120/45
[2021-07-04 13:00] VITALS: BP 142/66
[2021-07-04 17:00] VITALS: BP 130/80
[2021-07-04] MEDS: ATORVASTATIN 20 MG TAB PO SCH (21:26)
[2021-07-04 22:00] VITALS: BP 122/54
[2021-07-05 05:01] VITALS: BP 130/47
[2021-07-05] MEDS: GABAPENTIN 100 MG CAP PO SCH ×3 (06:42→22:26)
[2021-07-05 07:19] LABS: Hematocrit 24.3 % (36.0-46.0); Hemoglobin 7.9 g/dL (12.2-16.2)
[2021-07-05 07:30] LABS: Potassium 4.8 mmol/L (3.5-5.1)
[2021-07-05] MEDS: FUROSEMIDE 20 MG/2 ML VIAL IV SCH (09:15)
[2021-07-05] MEDS: Ensure HIGH Protein Chocolate 8oz Bottle PO SCH ×3 (09:15→18:56)
[2021-07-05] MEDS: Glucerna Carbsteady SHAKE Vanilla 8oz PO SCH ×3 (09:15→18:57)
[2021-07-05] MEDS: ASPirin 81 mg TAB PO SCH (09:15)
[2021-07-05 09:16] VITALS: BP 138/62
[2021-07-05] MEDS: ENOXAPARIN SOD 40 MG/0.4 ML SYRINGE SC SCH (09:16)
[2021-07-05] MEDS: FAMOTIDINE 20 MG TAB PO SCH (09:16)
[2021-07-05] MEDS: METOPROLOL TARTRATE 50 MG TAB PO SCH ×2 (09:16→22:26)
[2021-07-05] MEDS: CHOLECALCIFEROL (VITD3) 2,000 UNIT CAP/TAB PO SCH (09:16)
[2021-07-05 11:34] LABS: Urine Bacteria MANY /hpf (None Seen); Urine Blood Negative /uL (Negative); Urine Budding Yeast MANY /hpf (None Seen); Urine Mucus FEW (None Seen); Urine Specific Gravity 1.011 (1.001-1.035); Urine WBC 21 /hpf (0 - 5); Urine WBC Clumps PRESENT /hpf (None Seen)
[2021-07-05] MEDS ORDERED: SODIUM ZIRCONIUM CYCL 10 GM PAK PO SCH (12:00)
[2021-07-05 13:00] VITALS: BP 148/58
[2021-07-05] MEDS: ACETAMINOPHEN 325 MG TAB PO PRN ×2 (14:01→22:32)
[2021-07-05 16:28] VITALS: BP 127/61
[2021-07-05 22:00] VITALS: BP 142/56
[2021-07-05] MEDS: ATORVASTATIN 20 MG TAB PO SCH (22:26)
[2021-07-06 05:00] VITALS: BP 131/56
[2021-07-06] MEDS: GABAPENTIN 100 MG CAP PO SCH ×3 (06:17→22:22)
[2021-07-06] MEDS: ACETAMINOPHEN 325 MG TAB PO PRN ×3 (06:18→22:56)
[2021-07-06 06:53] LABS: Hemoglobin 7.5 g/dL (12.2-16.2)
[2021-07-06 07:04] LABS: Calcium 9.3 mg/dL (8.5-10.1); Magnesium 2.2 mg/dL (1.6-2.6)
[2021-07-06 07:08] LABS: BUN/Creatinine Ratio 52.3
[2021-07-06] MEDS: Glucerna Carbsteady SHAKE Vanilla 8oz PO SCH ×3 (08:56→17:42)
[2021-07-06] MEDS: Ensure HIGH Protein Chocolate 8oz Bottle PO SCH ×3 (08:56→17:43)
[2021-07-06 09:02] VITALS: BP 135/64
[2021-07-06] MEDS: ASPirin 81 mg TAB PO SCH (09:02)
[2021-07-06] MEDS: FUROSEMIDE 20 MG/2 ML VIAL IV SCH (09:02)
[2021-07-06] MEDS: METOPROLOL TARTRATE 50 MG TAB PO SCH ×2 (09:03→22:22)
[2021-07-06] MEDS: CHOLECALCIFEROL (VITD3) 2,000 UNIT CAP/TAB PO SCH (09:03)
[2021-07-06] MEDS: FAMOTIDINE 20 MG TAB PO SCH (09:03)
[2021-07-06] MEDS: ENOXAPARIN SOD 40 MG/0.4 ML SYRINGE SC SCH (09:10)
[2021-07-06 13:00] VITALS: BP 135/60
[2021-07-06] MEDS ORDERED: SODIUM ZIRCONIUM CYCL 10 GM PAK PO ONE (15:30)
[2021-07-06] MEDS ORDERED: PANTOPRAZOLE 40 MG TAB PO ONE (16:30)
[2021-07-06] MEDS ORDERED: FERROUS SULFATE 325mg EC TAB PO ONE (16:30)
[2021-07-06 16:57] VITALS: BP 113/48
[2021-07-06 22:00] VITALS: BP 123/56
[2021-07-06] MEDS: ATORVASTATIN 20 MG TAB PO SCH (22:22)
[2021-07-07 05:00] VITALS: BP_SYST 102; BP_SYST 122; BP_DIAS 53; BP_DIAS 54
[2021-07-07] MEDS: GABAPENTIN 100 MG CAP PO SCH ×3 (06:24→22:06)
[2021-07-07 07:36] LABS: Basophils # (auto) 0 10 ^3/uL (0-0.2); Eosinophils # (auto) 0.3 10 ^3/uL (0-0.8); Hemoglobin 8.1 g/dL (12.2-16.2); Lymphocytes # (auto) 0.7 10 ^3/uL (0.4-5.4); Monocytes # (auto) 0.4 10 ^3/uL (0-1.3)
[2021-07-07 07:40] LABS: Basophils % (auto) 0.4 % (0.0-2.0); Eosinophils % (auto) 4.9 % (0.0-7.0); Hematocrit 25.2 % (36.0-46.0); Lymphocytes % (auto) 11.9 % (10.0-50.0); Mean Corpuscular Hemoglobin 29.4 pg (28.0-32.0); Mean Corpuscular Volume 91.8 fL (80.0-100.0); Monocytes % (auto) 7.2 % (0.0-12.0); Neutrophils # (auto) 4.6 10 ^3/uL (1.6-8.6); Neutrophils % (auto) 75.6 % (37.0-80.0); Nucleated Red Blood Cells % 0.1 %; Red Blood Cells 2.75 10^6/uL (4.0-5.20); Red Cell Distribution Width 17.6 % (11.8-14.3); White Blood Cell 6.1 10^3/uL (4.4-10.8)
[2021-07-07] MEDS: Glucerna Carbsteady SHAKE Vanilla 8oz PO SCH ×3 (08:00→16:46)
[2021-07-07] MEDS: FERROUS SULFATE 325mg EC TAB PO SCH ×3 (08:00→16:46)
[2021-07-07] MEDS: Ensure HIGH Protein Chocolate 8oz Bottle PO SCH ×3 (08:00→16:46)
[2021-07-07 08:17] LABS: Calcium 9.7 mg/dL (8.5-10.1); Potassium 5.2 mmol/L (3.5-5.1)
[2021-07-07 08:19] LABS: BUN/Creatinine Ratio 57.9
[2021-07-07 09:37] VITALS: BP 162/89
[2021-07-07] MEDS ORDERED: InsuLIN REG 1unit/0.01ml Soln (100units/ml) IV ONE (10:00)
[2021-07-07] MEDS ORDERED: SODIUM ZIRCONIUM CYCL 10 GM PAK PO ONE (10:00)
[2021-07-07] MEDS ORDERED: ALBUTEROL SULF 2.5 MG/0.5ML(0.5%) NEB SOLN NEB ONE (10:00)
[2021-07-07] MEDS ORDERED: PANTOPRAZOLE 40 MG TAB PO SCH (10:00)
[2021-07-07] MEDS: METOPROLOL TARTRATE 50 MG TAB PO SCH ×2 (10:28→22:06)
[2021-07-07] MEDS: PANTOPRAZOLE 40 MG TAB PO SCH ×2 (10:28→22:06)
[2021-07-07 12:03] VITALS: BP 162/89
[2021-07-07 13:00] VITALS: BP 136/59
[2021-07-07] MEDS: ACETAMINOPHEN 325 MG TAB PO PRN ×2 (16:30→22:47)
[2021-07-07] MEDS ORDERED: levoFLOXacin 250 MG TAB PO ONE (16:30)
[2021-07-07] MEDS ORDERED: ALBUMIN 5% 250 ML IV ONE (16:30)
[2021-07-07 16:51] VITALS: BP 145/72
[2021-07-07 22:00] VITALS: BP 145/55
[2021-07-07] MEDS: ATORVASTATIN 20 MG TAB PO SCH (22:06)
[2021-07-08 05:30] VITALS: BP 128/60
[2021-07-08 06:44] LABS: Basophils # (auto) 0 10 ^3/uL (0-0.2); Eosinophils # (auto) 0.2 10 ^3/uL (0-0.8); Lymphocytes # (auto) 0.6 10 ^3/uL (0.4-5.4); Monocytes # (auto) 0.4 10 ^3/uL (0-1.3)
[2021-07-08 06:45] LABS: Basophils % (auto) 0.3 % (0.0-2.0); Eosinophils % (auto) 3.9 % (0.0-7.0); Hematocrit 23.3 % (36.0-46.0); Hemoglobin 7.5 g/dL (12.2-16.2); Lymphocytes % (auto) 10.4 % (10.0-50.0); Mean Corpuscular Hemoglobin 29.5 pg (28.0-32.0); Monocytes % (auto) 6.8 % (0.0-12.0); Neutrophils # (auto) 4.2 10 ^3/uL (1.6-8.6); Neutrophils % (auto) 78.6 % (37.0-80.0); Red Blood Cells 2.53 10^6/uL (4.0-5.20); Red Cell Distribution Width 17.3 % (11.8-14.3); White Blood Cell 5.3 10^3/uL (4.4-10.8)
[2021-07-08] MEDS: GABAPENTIN 100 MG CAP PO SCH ×3 (06:55→22:59)
[2021-07-08] MEDS: ACETAMINOPHEN 325 MG TAB PO PRN ×2 (06:59→23:01)
[2021-07-08 07:00] LABS: Albumin 2.1 g/dL (3.4-5.0); Calcium 9.2 mg/dL (8.5-10.1); Potassium 5.5 mmol/L (3.5-5.1)
[2021-07-08 07:02] LABS: Bilirubin, Total 0.4 mg/dL (0.2-1.0); Total Protein 6.1 g/dL (6.4-8.2)
[2021-07-08] MEDS: Glucerna Carbsteady SHAKE Vanilla 8oz PO SCH ×3 (08:00→18:01)
[2021-07-08 09:00] VITALS: BP 117/58
[2021-07-08] MEDS ORDERED: InsuLIN REG 1unit/0.01ml Soln (100units/ml) IV ONE (09:15)
[2021-07-08] MEDS ORDERED: SODIUM BICARBONATE 8.4% INJ 50ML SYRINGE IV ONE (09:15)
[2021-07-08] MEDS ORDERED: FUROSEMIDE 40 MG/4 ML VIAL IV ONE (09:15)
[2021-07-08] MEDS ORDERED: ALBUTEROL SULF 2.5 MG/0.5ML(0.5%) NEB SOLN NEB ONE (09:15)
[2021-07-08] MEDS: Ensure HIGH Protein Chocolate 8oz Bottle PO SCH ×3 (09:16→18:00)
[2021-07-08] MEDS: FERROUS SULFATE 325mg EC TAB PO SCH ×3 (09:16→17:49)
[2021-07-08] MEDS: METOPROLOL TARTRATE 50 MG TAB PO SCH ×2 (09:17→22:59)
[2021-07-08] MEDS: PANTOPRAZOLE 40 MG TAB PO SCH ×2 (09:17→22:59)
[2021-07-08] MEDS: ALBUMIN 25% 100 ML IV SCH ×2 (09:48→16:55)
[2021-07-08] MEDS ORDERED: levoFLOXacin 250 MG TAB PO SCH (10:00)
[2021-07-08] MEDS ORDERED: SODIUM ZIRCONIUM CYCL 10 GM PAK PO ONE (10:00)
[2021-07-08] MEDS ORDERED: DEXTROSE (50%) 50ML SYRG IV PRN (10:15)
[2021-07-08] MEDS: InsuLIN REG 1unit/0.01ml Soln (100units/ml) SC SCH ×3 (11:22→23:07)
[2021-07-08] MEDS: ACCU-CHEK COMFORT CURVE STRIP VI SCH ×3 (11:22→23:04)
[2021-07-08 13:00] VITALS: BP 111/57
[2021-07-08] MEDS: SODIUM ZIRCONIUM CYCL 10 GM PAK PO SCH ×2 (13:30→22:00)
[2021-07-08 17:00] VITALS: BP 119/63
[2021-07-08 18:41] LABS: Hemoglobin 7.4 g/dL (12.2-16.2)
[2021-07-08 18:43] LABS: Hematocrit 23.2 % (36.0-46.0)
[2021-07-08 22:03] VITALS: BP 144/62
[2021-07-08] MEDS: NITROFURANTOIN 100 mg CAP PO SCH (22:59)
[2021-07-08] MEDS: ATORVASTATIN 20 MG TAB PO SCH (23:03)
[2021-07-08] MEDS: INSULIN LANTUS (GLARGINE) 1 /0.01ml (100units/ml) SC SCH (23:07)
[2021-07-09] VITALS (9 sets, daily range): BP systolic 124–151; BP diastolic 45–73
[2021-07-09] MEDS: ALBUMIN 25% 100 ML IV SCH (02:16)
[2021-07-09] MEDS: GABAPENTIN 100 MG CAP PO SCH ×3 (06:15→22:03)
[2021-07-09] MEDS: SODIUM ZIRCONIUM CYCL 10 GM PAK PO SCH (06:15)
[2021-07-09] MEDS: ACCU-CHEK COMFORT CURVE STRIP VI SCH ×4 (06:15→23:21)
[2021-07-09] MEDS: InsuLIN REG 1unit/0.01ml Soln (100units/ml) SC SCH ×4 (06:32→23:21)
[2021-07-09] MEDS: INSULIN LANTUS (GLARGINE) 1 /0.01ml (100units/ml) SC SCH ×2 (06:32→23:21)
[2021-07-09 06:50] LABS: White Blood Cell 4.9 10^3/uL (4.4-10.8)
[2021-07-09 06:53] LABS: Hematocrit 20.8 % (36.0-46.0); Mean Corpuscular Hemoglobin 29.8 pg (28.0-32.0); Mean Corpuscular Hgb Conc. 32.6 g/dL (32.0-36.0); Mean Corpuscular Volume 91.4 fL (80.0-100.0); Red Blood Cells 2.27 10^6/uL (4.0-5.20); Red Cell Distribution Width 17.2 % (11.8-14.3)
[2021-07-09 06:59] LABS: Hemoglobin 6.8 g/dL (12.2-16.2)
[2021-07-09 07:03] LABS: Blast Cells 0; Myelocytes % 0; Promyelocytes % 0; Reactive Lymphocytes 0
[2021-07-09 07:09] LABS: BUN/Creatinine Ratio 56.8; Calcium 9.6 mg/dL (8.5-10.1); Potassium 5.1 mmol/L (3.5-5.1)
[2021-07-09 08:30] LABS: Band Neutrophils % (manual) 1; Basophils % (manual) 1 (0.0-2.0); Eosinophils % (manual) 7 (0-7); Lymphocytes % (manual) 13 (10.0-50.0); Metamyelocytes % 2; Monocytes % (manual) 10 (0-12)
[2021-07-09] MEDS: Glucerna Carbsteady SHAKE Vanilla 8oz PO SCH ×3 (08:30→18:06)
[2021-07-09] MEDS: FERROUS SULFATE 325mg EC TAB PO SCH ×3 (09:08→18:11)
[2021-07-09] MEDS: METOPROLOL TARTRATE 50 MG TAB PO SCH ×2 (09:08→22:02)
[2021-07-09] MEDS: NITROFURANTOIN 100 mg CAP PO SCH (09:09)
[2021-07-09] MEDS: PANTOPRAZOLE 40 MG TAB PO SCH ×2 (09:09→22:02)
[2021-07-09] MEDS ORDERED: SODIUM CHLORIDE 0.9% 1,000 ML IV ONE (13:15)
[2021-07-09] MEDS: ACETAMINOPHEN 325 MG TAB PO PRN (14:54)
[2021-07-09] MEDS: ATORVASTATIN 20 MG TAB PO SCH (22:02)
[2021-07-10] VITALS (7 sets, daily range): BP systolic 119–156; BP diastolic 53–68
[2021-07-10] MEDS: InsuLIN REG 1unit/0.01ml Soln (100units/ml) SC SCH ×4 (06:00→23:03)
[2021-07-10] MEDS: GABAPENTIN 100 MG CAP PO SCH ×3 (06:18→22:51)
[2021-07-10] MEDS: ACCU-CHEK COMFORT CURVE STRIP VI SCH ×4 (06:18→22:51)
[2021-07-10] MEDS: ACETAMINOPHEN 325 MG TAB PO PRN ×2 (06:25→22:51)
[2021-07-10 06:53] LABS: INR 1.05 (0.9-1.15)
[2021-07-10 06:54] LABS: Hematocrit 24.2 % (36.0-46.0)
[2021-07-10 07:02] LABS: Potassium 4.7 mmol/L (3.5-5.1)
[2021-07-10 07:11] LABS: Albumin 2.7 g/dL (3.4-5.0); BUN/Creatinine Ratio 59.1; Bilirubin, Total 0.6 mg/dL (0.2-1.0); Calcium 9.5 mg/dL (8.5-10.1); Magnesium 2.5 mg/dL (1.6-2.6); Total Protein 6.6 g/dL (6.4-8.2)
[2021-07-10] MEDS: INSULIN LANTUS (GLARGINE) 1 /0.01ml (100units/ml) SC SCH ×2 (07:30→23:03)
[2021-07-10] MEDS: Glucerna Carbsteady SHAKE Vanilla 8oz PO SCH ×3 (08:25→18:18)
[2021-07-10] MEDS: FERROUS SULFATE 325mg EC TAB PO SCH ×3 (08:25→18:18)
[2021-07-10] MEDS: PANTOPRAZOLE 40 MG TAB PO SCH ×2 (09:18→22:51)
[2021-07-10] MEDS: METOPROLOL TARTRATE 50 MG TAB PO SCH (09:19)
[2021-07-10] MEDS: ATORVASTATIN 20 MG TAB PO SCH (22:50)
[2021-07-10] MEDS: METOPROLOL TARTRATE 25 MG TAB PO SCH (22:51)
[2021-07-11] VITALS (7 sets, daily range): BP systolic 98–131; BP diastolic 32–91
[2021-07-11 05:30] LABS: Hemoglobin 8.2 g/dL (12.2-16.2)
[2021-07-11 05:38] LABS: Albumin 2.5 g/dL (3.4-5.0); Calcium 9.8 mg/dL (8.5-10.1); Potassium 5.1 mmol/L (3.5-5.1)
[2021-07-11 05:44] LABS: Bilirubin, Total 0.5 mg/dL (0.2-1.0); Total Protein 6.5 g/dL (6.4-8.2)
[2021-07-11] MEDS: GABAPENTIN 100 MG CAP PO SCH ×3 (06:11→22:44)
[2021-07-11] MEDS: ACCU-CHEK COMFORT CURVE STRIP VI SCH ×4 (06:11→23:01)
[2021-07-11] MEDS: InsuLIN REG 1unit/0.01ml Soln (100units/ml) SC SCH ×4 (06:13→22:58)
[2021-07-11] MEDS: INSULIN LANTUS (GLARGINE) 1 /0.01ml (100units/ml) SC SCH ×2 (06:13→22:58)
[2021-07-11] MEDS: ACETAMINOPHEN 325 MG TAB PO PRN ×2 (06:15→22:56)
[2021-07-11] MEDS: Glucerna Carbsteady SHAKE Vanilla 8oz PO SCH (08:33)
[2021-07-11] MEDS: FERROUS SULFATE 325mg EC TAB PO SCH ×3 (08:33→17:28)
[2021-07-11] MEDS: PANTOPRAZOLE 40 MG TAB PO SCH ×2 (09:06→22:45)
[2021-07-11] MEDS: METOPROLOL TARTRATE 25 MG TAB PO SCH ×2 (09:06→22:44)
[2021-07-11] MEDS ORDERED: FUROSEMIDE 40 MG/4 ML VIAL IV ONE (09:30)
[2021-07-11] MEDS: ATORVASTATIN 20 MG TAB PO SCH (22:45)
[2021-07-12] VITALS (7 sets, daily range): BP systolic 136–150; BP diastolic 59–73
[2021-07-12] MEDS: InsuLIN REG 1unit/0.01ml Soln (100units/ml) SC SCH ×4 (06:00→22:55)
[2021-07-12 06:11] LABS: Hematocrit 23.4 % (36.0-46.0); Hemoglobin 7.7 g/dL (12.2-16.2); Mean Corpuscular Hemoglobin 30.5 pg (28.0-32.0); Mean Corpuscular Hgb Conc. 32.8 g/dL (32.0-36.0); Red Blood Cells 2.52 10^6/uL (4.0-5.20)
[2021-07-12 06:14] LABS: Mean Corpuscular Volume 92.8 fL (80.0-100.0); Red Cell Distribution Width 16.9 % (11.8-14.3); White Blood Cell 6.1 10^3/uL (4.4-10.8)
[2021-07-12 06:29] LABS: Basophils % (manual) 0 (0.0-2.0); Blast Cells 0; Metamyelocytes % 0; Myelocytes % 0; Promyelocytes % 0
[2021-07-12] MEDS: GABAPENTIN 100 MG CAP PO SCH (06:30)
[2021-07-12] MEDS: ACCU-CHEK COMFORT CURVE STRIP VI SCH ×4 (06:32→22:42)
[2021-07-12] MEDS: INSULIN LANTUS (GLARGINE) 1 /0.01ml (100units/ml) SC SCH ×2 (06:33→22:52)
[2021-07-12 06:48] LABS: Albumin 2.3 g/dL (3.4-5.0); Calcium 9.5 mg/dL (8.5-10.1)
[2021-07-12 06:52] LABS: BUN/Creatinine Ratio 63.1; Bilirubin, Total 0.4 mg/dL (0.2-1.0); Total Protein 5.9 g/dL (6.4-8.2)
[2021-07-12] MEDS: FERROUS SULFATE 325mg EC TAB PO SCH ×3 (08:35→17:54)
[2021-07-12] MEDS ORDERED: ALBUMIN 5% 250 ML IV ONE (09:15)
[2021-07-12] MEDS ORDERED: FUROSEMIDE 40 MG/4 ML VIAL IV SCH ×2 (10:00)
[2021-07-12] MEDS: METOPROLOL TARTRATE 25 MG TAB PO SCH ×2 (10:10→22:42)
[2021-07-12] MEDS: PANTOPRAZOLE 40 MG/10 ML VIAL INJ IV SCH ×2 (10:10→22:41)
[2021-07-12 11:36] LABS: Band Neutrophils % (manual) 4; Eosinophils % (manual) 5 (0-7); Lymphocytes % (manual) 13 (10.0-50.0); Monocytes % (manual) 6 (0-12); Reactive Lymphocytes 4
[2021-07-12] MEDS: SUCRALFATE 1 GM TAB PO SCH ×3 (12:05→22:42)
[2021-07-12] MEDS: FUROSEMIDE 40 MG/4 ML VIAL IV SCH (17:54)
[2021-07-12] MEDS: LORazepam 0.5 MG TAB PO PRN (22:55)
[2021-07-13 05:00] VITALS: BP 151/62
[2021-07-13] MEDS: InsuLIN REG 1unit/0.01ml Soln (100units/ml) SC SCH ×4 (06:00→23:56)
[2021-07-13 06:23] LABS: Basophils # (auto) 0 10 ^3/uL (0-0.2); Basophils % (auto) 0.5 % (0.0-2.0); Eosinophils # (auto) 0.3 10 ^3/uL (0-0.8); Lymphocytes # (auto) 0.7 10 ^3/uL (0.4-5.4); Monocytes # (auto) 0.5 10 ^3/uL (0-1.3); White Blood Cell 6.8 10^3/uL (4.4-10.8)
[2021-07-13] MEDS: FUROSEMIDE 40 MG/4 ML VIAL IV SCH ×2 (06:23→17:51)
[2021-07-13] MEDS: ACCU-CHEK COMFORT CURVE STRIP VI SCH ×4 (06:23→23:56)
[2021-07-13] MEDS: SUCRALFATE 1 GM TAB PO SCH ×4 (06:24→22:30)
[2021-07-13 06:27] LABS: Lymphocytes % (auto) 10.4 % (10.0-50.0); Mean Corpuscular Hemoglobin 30.5 pg (28.0-32.0); Mean Corpuscular Hgb Conc. 33.3 g/dL (32.0-36.0); Mean Corpuscular Volume 91.7 fL (80.0-100.0); Monocytes % (auto) 7.5 % (0.0-12.0); Neutrophils # (auto) 5.2 10 ^3/uL (1.6-8.6); Neutrophils % (auto) 76.6 % (37.0-80.0); Nucleated Red Blood Cells % 0.1 %; Red Blood Cells 2.62 10^6/uL (4.0-5.20); Red Cell Distribution Width 17.2 % (11.8-14.3)
[2021-07-13] MEDS: INSULIN LANTUS (GLARGINE) 1 /0.01ml (100units/ml) SC SCH ×2 (06:36→22:30)
[2021-07-13 07:11] LABS: Albumin 2.2 g/dL (3.4-5.0); BUN/Creatinine Ratio 58.5; Bilirubin, Total 0.4 mg/dL (0.2-1.0); Calcium 9.7 mg/dL (8.5-10.1)
[2021-07-13 08:00] VITALS: BP 151/63
[2021-07-13] MEDS: FERROUS SULFATE 325mg EC TAB PO SCH ×3 (08:22→17:46)
[2021-07-13 08:48] VITALS: BP 151/62
[2021-07-13] MEDS: PANTOPRAZOLE 40 MG/10 ML VIAL INJ IV SCH ×2 (10:16→22:30)
[2021-07-13] MEDS: METOPROLOL TARTRATE 25 MG TAB PO SCH ×2 (10:16→22:30)
[2021-07-13] MEDS: LORazepam 0.5 MG TAB PO PRN (17:51)
[2021-07-13] MEDS ORDERED: MORPHINE SULFATE INJECTION 2 MG/ML SYRG IV ONE (18:00)
[2021-07-13 22:00] VITALS: BP 133/61
[2021-07-14 05:00] VITALS: BP 147/66
[2021-07-14] MEDS: InsuLIN REG 1unit/0.01ml Soln (100units/ml) SC SCH ×4 (06:00→23:30)
[2021-07-14] MEDS: ACCU-CHEK COMFORT CURVE STRIP VI SCH ×4 (06:25→23:29)
[2021-07-14] MEDS: FUROSEMIDE 40 MG/4 ML VIAL IV SCH ×2 (06:25→17:21)
[2021-07-14] MEDS: SUCRALFATE 1 GM TAB PO SCH ×4 (06:26→22:07)
[2021-07-14] MEDS: INSULIN LANTUS (GLARGINE) 1 /0.01ml (100units/ml) SC SCH ×2 (06:27→23:30)
[2021-07-14 06:40] LABS: Hemoglobin 7.6 g/dL (12.2-16.2); Nucleated Red Blood Cells % 0.1 %; White Blood Cell 6.3 10^3/uL (4.4-10.8)
[2021-07-14 06:41] LABS: Basophils # (auto) 0 10 ^3/uL (0-0.2); Basophils % (auto) 0.3 % (0.0-2.0); Eosinophils # (auto) 0.5 10 ^3/uL (0-0.8); Eosinophils % (auto) 7.4 % (0.0-7.0); Hematocrit 23.1 % (36.0-46.0); Lymphocytes % (auto) 15.3 % (10.0-50.0); Mean Corpuscular Hemoglobin 30.4 pg (28.0-32.0); Monocytes # (auto) 0.6 10 ^3/uL (0-1.3); Monocytes % (auto) 8.9 % (0.0-12.0); Neutrophils # (auto) 4.3 10 ^3/uL (1.6-8.6); Neutrophils % (auto) 68.1 % (37.0-80.0); Red Blood Cells 2.51 10^6/uL (4.0-5.20)
[2021-07-14 07:00] LABS: Albumin 2.2 g/dL (3.4-5.0); Calcium 9.6 mg/dL (8.5-10.1); Potassium 4.6 mmol/L (3.5-5.1)
[2021-07-14 07:05] LABS: BUN/Creatinine Ratio 59.8; Bilirubin, Total 0.4 mg/dL (0.2-1.0); Total Protein 5.8 g/dL (6.4-8.2)
[2021-07-14 08:00] VITALS: BP 138/54
[2021-07-14] MEDS: FERROUS SULFATE 325mg EC TAB PO SCH ×3 (08:32→17:21)
[2021-07-14 09:00] VITALS: BP 138/54
[2021-07-14] MEDS: METOPROLOL TARTRATE 25 MG TAB PO SCH ×2 (09:31→22:07)
[2021-07-14] MEDS: PANTOPRAZOLE 40 MG/10 ML VIAL INJ IV SCH (09:31)
[2021-07-14 13:00] VITALS: BP 143/69
[2021-07-14] MEDS: DOPamine 1600MCG/ML D5W 250 ML IV SCH (13:59)
[2021-07-14 17:00] VITALS: BP 160/66
[2021-07-14 22:00] VITALS: BP 160/77
[2021-07-14] MEDS: PANTOPRAZOLE 40 MG TAB PO SCH (22:08)
[2021-07-15 05:21] VITALS: BP 146/77
[2021-07-15] MEDS: InsuLIN REG 1unit/0.01ml Soln (100units/ml) SC SCH ×4 (06:00→23:28)
[2021-07-15 06:05] LABS: Basophils # (auto) 0 10 ^3/uL (0-0.2); Basophils % (auto) 0.3 % (0.0-2.0); Eosinophils # (auto) 0.4 10 ^3/uL (0-0.8); Hematocrit 30.9 % (36.0-46.0); Hemoglobin 9.9 g/dL (12.2-16.2); Lymphocytes # (auto) 0.8 10 ^3/uL (0.4-5.4); Lymphocytes % (auto) 9.1 % (10.0-50.0); Mean Corpuscular Hemoglobin 29.8 pg (28.0-32.0); Mean Corpuscular Hgb Conc. 32.2 g/dL (32.0-36.0); Mean Corpuscular Volume 92.6 fL (80.0-100.0); Monocytes # (auto) 0.6 10 ^3/uL (0-1.3); Monocytes % (auto) 6.8 % (0.0-12.0); Neutrophils # (auto) 7.2 10 ^3/uL (1.6-8.6); Neutrophils % (auto) 79.8 % (37.0-80.0); Nucleated Red Blood Cells % 0.1 %; Red Blood Cells 3.34 10^6/uL (4.0-5.20); Red Cell Distribution Width 17.4 % (11.8-14.3)
[2021-07-15] MEDS: FUROSEMIDE 40 MG/4 ML VIAL IV SCH ×2 (06:23→17:46)
[2021-07-15] MEDS: SUCRALFATE 1 GM TAB PO SCH ×4 (06:24→22:05)
[2021-07-15] MEDS: ACCU-CHEK COMFORT CURVE STRIP VI SCH ×4 (06:24→23:28)
[2021-07-15] MEDS: INSULIN LANTUS (GLARGINE) 1 /0.01ml (100units/ml) SC SCH ×2 (06:25→23:26)
[2021-07-15 06:31] LABS: Potassium 5.4 mmol/L (3.5-5.1)
[2021-07-15 06:39] LABS: Albumin 2.5 g/dL (3.4-5.0); Bilirubin, Total 0.6 mg/dL (0.2-1.0); Calcium 10.4 mg/dL (8.5-10.1); Total Protein 6.7 g/dL (6.4-8.2)
[2021-07-15 08:00] VITALS: BP 160/81
[2021-07-15 09:00] VITALS: BP 160/81
[2021-07-15] MEDS: FERROUS SULFATE 325mg EC TAB PO SCH ×3 (09:23→17:46)
[2021-07-15] MEDS: PANTOPRAZOLE 40 MG TAB PO SCH ×2 (09:25→22:06)
[2021-07-15] MEDS: METOPROLOL TARTRATE 25 MG TAB PO SCH ×2 (09:25→22:06)
[2021-07-15] MEDS: LORazepam 0.5 MG TAB PO PRN (09:26)
[2021-07-15] MEDS: DOPamine 1600MCG/ML D5W 250 ML IV SCH (11:01)
[2021-07-15] MEDS: SODIUM ZIRCONIUM CYCL 10 GM PAK PO SCH ×3 (12:03→22:05)
[2021-07-15 12:59] VITALS: BP 152/81
[2021-07-15 17:00] VITALS: BP 117/58
[2021-07-15 22:00] VITALS: BP 148/67
[2021-07-16 05:00] VITALS: BP 134/60
[2021-07-16] MEDS: FUROSEMIDE 40 MG/4 ML VIAL IV SCH ×2 (06:39→17:51)
[2021-07-16] MEDS: ACCU-CHEK COMFORT CURVE STRIP VI SCH ×4 (06:40→23:56)
[2021-07-16] MEDS: InsuLIN REG 1unit/0.01ml Soln (100units/ml) SC SCH ×3 (06:40→17:59)
[2021-07-16] MEDS: SUCRALFATE 1 GM TAB PO SCH ×4 (06:40→22:22)
[2021-07-16] MEDS: INSULIN LANTUS (GLARGINE) 1 /0.01ml (100units/ml) SC SCH ×2 (06:41→22:27)
[2021-07-16] MEDS: LORazepam 0.5 MG TAB PO PRN ×2 (06:48→22:43)
[2021-07-16 06:52] LABS: Hemoglobin 8.2 g/dL (12.2-16.2)
[2021-07-16 06:56] LABS: Hematocrit 24.2 % (36.0-46.0)
[2021-07-16 07:07] LABS: Calcium 10.6 mg/dL (8.5-10.1); Potassium 4.2 mmol/L (3.5-5.1)
[2021-07-16 07:13] LABS: Albumin 2.2 g/dL (3.4-5.0); BUN/Creatinine Ratio 52.9; Bilirubin, Total 0.6 mg/dL (0.2-1.0); Magnesium 1.9 mg/dL (1.6-2.6); Total Protein 5.9 g/dL (6.4-8.2)
[2021-07-16 09:00] VITALS: BP 146/61
[2021-07-16] MEDS: FERROUS SULFATE 325mg EC TAB PO SCH ×3 (09:41→17:52)
[2021-07-16] MEDS: METOPROLOL TARTRATE 25 MG TAB PO SCH ×2 (09:42→22:21)
[2021-07-16] MEDS: PANTOPRAZOLE 40 MG TAB PO SCH ×2 (09:43→22:22)
[2021-07-16 11:25] VITALS: BP 146/61
[2021-07-16 13:00] VITALS: BP 119/57
[2021-07-16 17:00] VITALS: BP 126/79
[2021-07-16 22:00] VITALS: BP 153/72
[2021-07-17 05:00] VITALS: BP 149/70
[2021-07-17] MEDS: SUCRALFATE 1 GM TAB PO SCH ×4 (05:33→23:33)
[2021-07-17] MEDS: FUROSEMIDE 40 MG/4 ML VIAL IV SCH ×2 (05:33→18:12)
[2021-07-17] MEDS: ACCU-CHEK COMFORT CURVE STRIP VI SCH ×4 (05:34→23:35)
[2021-07-17] MEDS: InsuLIN REG 1unit/0.01ml Soln (100units/ml) SC SCH ×5 (06:00→23:35)
[2021-07-17] MEDS: INSULIN LANTUS (GLARGINE) 1 /0.01ml (100units/ml) SC SCH ×2 (06:06→23:35)
[2021-07-17 07:18] VITALS: BP 149/70
[2021-07-17] MEDS: FERROUS SULFATE 325mg EC TAB PO SCH ×3 (08:00→17:02)
[2021-07-17 08:06] LABS: Immunoglobulin G, Serum 906 mg/dL (586-1602)
[2021-07-17 09:00] VITALS: BP 153/69
[2021-07-17] MEDS: METOPROLOL TARTRATE 25 MG TAB PO SCH ×2 (09:38→23:34)
[2021-07-17] MEDS: PANTOPRAZOLE 40 MG TAB PO SCH ×2 (09:38→23:33)
[2021-07-17 13:00] VITALS: BP 148/69
[2021-07-17] MEDS ORDERED: CHOLECALCIFEROL (VITD3) 2,000 UNIT CAP/TAB PO ONE (13:00)
[2021-07-17] MEDS ORDERED: ASCORBIC ACID 500 MG TAB PO ONE (13:00)
[2021-07-17] MEDS ORDERED: ZINC SULFATE 220mg CAP or TAB PO ONE (13:00)
[2021-07-17 17:00] VITALS: BP 160/67
[2021-07-17 22:00] VITALS: BP 144/75
[2021-07-17] MEDS: LORazepam 0.5 MG TAB PO PRN (23:33)
[2021-07-18 05:00] VITALS: BP 117/60
[2021-07-18] MEDS: FUROSEMIDE 40 MG/4 ML VIAL IV SCH (05:22)
[2021-07-18] MEDS: SUCRALFATE 1 GM TAB PO SCH ×4 (05:23→22:21)
[2021-07-18] MEDS: ACCU-CHEK COMFORT CURVE STRIP VI SCH ×4 (05:23→22:23)
[2021-07-18] MEDS: InsuLIN REG 1unit/0.01ml Soln (100units/ml) SC SCH ×5 (05:36→22:23)
[2021-07-18] MEDS: FERROUS SULFATE 325mg EC TAB PO SCH ×3 (08:00→18:03)
[2021-07-18 09:00] VITALS: BP 156/75
[2021-07-18] MEDS: PANTOPRAZOLE 40 MG TAB PO SCH ×2 (09:08→22:21)
[2021-07-18] MEDS: ZINC SULFATE 220mg CAP or TAB PO SCH (09:08)
[2021-07-18] MEDS: METOPROLOL TARTRATE 25 MG TAB PO SCH ×2 (09:08→22:21)
[2021-07-18] MEDS: ASCORBIC ACID 500 MG TAB PO SCH (09:09)
[2021-07-18] MEDS: CHOLECALCIFEROL (VITD3) 2,000 UNIT CAP/TAB PO SCH (09:09)
[2021-07-18 10:15] LABS: BUN/Creatinine Ratio 47.2; Calcium 9.9 mg/dL (8.5-10.1); Potassium 3.4 mmol/L (3.5-5.1)
[2021-07-18] MEDS ORDERED: POTASSIUM CHL 20 Meq TABLET PO ONE (12:45)
[2021-07-18 13:00] VITALS: BP 140/74
[2021-07-18] MEDS ORDERED: DEXTROSE (50%) 50ML SYRG IV PRN (14:30)
[2021-07-18 16:49] VITALS: BP 156/73
[2021-07-18] MEDS: FUROSEMIDE 40 MG TAB PO SCH (18:24)
[2021-07-18 22:00] VITALS: BP 148/74
[2021-07-18] MEDS: INSULIN LANTUS (GLARGINE) 1 /0.01ml (100units/ml) SC SCH (22:00)
[2021-07-18] MEDS: ENOXAPARIN SOD 30 MG/0.3 ML SYRINGE SC SCH (22:21)
[2021-07-18] MEDS: LORazepam 0.5 MG TAB PO PRN (22:28)
[2021-07-19 05:00] VITALS: BP 146/76
[2021-07-19] MEDS: SUCRALFATE 1 GM TAB PO SCH ×4 (05:37→22:00)
[2021-07-19] MEDS: FUROSEMIDE 40 MG TAB PO SCH ×2 (05:37→17:23)
[2021-07-19] MEDS: ACCU-CHEK COMFORT CURVE STRIP VI SCH ×4 (05:46→22:06)
[2021-07-19] MEDS: InsuLIN REG 1unit/0.01ml Soln (100units/ml) SC SCH ×4 (05:46→22:15)
[2021-07-19 05:58] LABS: Hematocrit 27.3 % (36.0-46.0); Hemoglobin 9.3 g/dL (12.2-16.2)
[2021-07-19 06:26] LABS: Potassium 3.5 mmol/L (3.5-5.1)
[2021-07-19 06:32] LABS: BUN/Creatinine Ratio 36.3; Calcium 9.7 mg/dL (8.5-10.1); Magnesium 1.7 mg/dL (1.6-2.6)
[2021-07-19] MEDS: FERROUS SULFATE 325mg EC TAB PO SCH ×3 (08:00→17:23)
[2021-07-19 08:57] VITALS: BP 162/72
[2021-07-19] MEDS ORDERED: MAGNESIUM SULFATE 1GM/100ML 100 ML IV ONE (09:15)
[2021-07-19] MEDS: CHOLECALCIFEROL (VITD3) 2,000 UNIT CAP/TAB PO SCH (09:52)
[2021-07-19] MEDS: PANTOPRAZOLE 40 MG TAB PO SCH ×2 (09:52→22:00)
[2021-07-19] MEDS: ASCORBIC ACID 500 MG TAB PO SCH (09:52)
[2021-07-19] MEDS: ENOXAPARIN SOD 30 MG/0.3 ML SYRINGE SC SCH ×2 (09:52→22:00)
[2021-07-19] MEDS: METOPROLOL TARTRATE 25 MG TAB PO SCH ×2 (09:52→22:16)
[2021-07-19] MEDS: ZINC SULFATE 220mg CAP or TAB PO SCH (09:52)
[2021-07-19 13:00] VITALS: BP 161/75
[2021-07-19 17:16] VITALS: BP 157/76
[2021-07-19 22:00] VITALS: BP 156/76
[2021-07-19] MEDS: LORazepam 0.5 MG TAB PO PRN (22:21)
[2021-07-19] MEDS: INSULIN LANTUS (GLARGINE) 1 /0.01ml (100units/ml) SC SCH (22:25)
[2021-07-20 05:00] VITALS: BP 150/86
[2021-07-20] MEDS: ACCU-CHEK COMFORT CURVE STRIP VI SCH ×4 (06:26→22:39)
[2021-07-20] MEDS: SUCRALFATE 1 GM TAB PO SCH ×4 (06:26→22:00)
[2021-07-20] MEDS: InsuLIN REG 1unit/0.01ml Soln (100units/ml) SC SCH ×4 (06:26→22:45)
[2021-07-20] MEDS: FUROSEMIDE 40 MG TAB PO SCH ×2 (06:32→18:29)
[2021-07-20 06:42] LABS: Calcium 9.7 mg/dL (8.5-10.1); Magnesium 1.8 mg/dL (1.6-2.6); Potassium 3.5 mmol/L (3.5-5.1)
[2021-07-20 06:44] LABS: BUN/Creatinine Ratio 33.1
[2021-07-20] MEDS: FERROUS SULFATE 325mg EC TAB PO SCH ×3 (08:02→18:28)
[2021-07-20 09:00] VITALS: BP 145/74
[2021-07-20] MEDS: ZINC SULFATE 220mg CAP or TAB PO SCH (10:31)
[2021-07-20] MEDS: METOPROLOL TARTRATE 25 MG TAB PO SCH ×2 (10:31→22:46)
[2021-07-20] MEDS: CHOLECALCIFEROL (VITD3) 2,000 UNIT CAP/TAB PO SCH (10:32)
[2021-07-20] MEDS: ENOXAPARIN SOD 30 MG/0.3 ML SYRINGE SC SCH ×2 (10:32→22:00)
[2021-07-20] MEDS: PANTOPRAZOLE 40 MG TAB PO SCH ×2 (10:32→22:00)
[2021-07-20] MEDS: ASCORBIC ACID 500 MG TAB PO SCH (10:32)
[2021-07-20] MEDS ORDERED: MAGNESIUM SULFATE 1GM/100ML 100 ML IV ONE (11:30)
[2021-07-20 13:00] VITALS: BP 137/74
[2021-07-20 16:59] VITALS: BP 141/70
[2021-07-20 22:00] VITALS: BP 130/72
[2021-07-20] MEDS: INSULIN LANTUS (GLARGINE) 1 /0.01ml (100units/ml) SC SCH (22:48)
[2021-07-20] MEDS: LORazepam 0.5 MG TAB PO PRN (22:56)
[2021-07-21 05:00] VITALS: BP 134/61
[2021-07-21] MEDS: SUCRALFATE 1 GM TAB PO SCH ×4 (06:22→21:44)
[2021-07-21] MEDS: ACCU-CHEK COMFORT CURVE STRIP VI SCH ×4 (06:22→21:44)
[2021-07-21] MEDS: InsuLIN REG 1unit/0.01ml Soln (100units/ml) SC SCH ×4 (06:22→21:40)
[2021-07-21] MEDS: FUROSEMIDE 40 MG TAB PO SCH ×2 (06:24→19:03)
[2021-07-21 08:28] LABS: Hemoglobin 9.7 g/dL (12.2-16.2)
[2021-07-21 08:34] LABS: Anion Gap 8 (5-15); Blood Urea Nitrogen 51 mg/dL (7-18); Calcium 8.9 mg/dL (8.5-10.1); Carbon Dioxide 36 mmol/L (21-32); Chloride 95 mmol/L (98-107); GFR African American 39 mL/min; GFR Non-African American 32 mL/min; Glucose 108 mg/dL (74-106); Magnesium 1.8 mg/dL (1.6-2.6); Potassium 3.8 mmol/L (3.5-5.1); Sodium 139 mmol/L (136-145)
[2021-07-21 09:00] VITALS: BP 150/68
[2021-07-21] MEDS: ZINC SULFATE 220mg CAP or TAB PO SCH (09:55)
[2021-07-21] MEDS: PANTOPRAZOLE 40 MG TAB PO SCH ×2 (09:55→21:44)
[2021-07-21] MEDS: METOPROLOL TARTRATE 25 MG TAB PO SCH ×2 (09:55→21:44)
[2021-07-21] MEDS: FERROUS SULFATE 325mg EC TAB PO SCH ×3 (09:55→18:00)
[2021-07-21] MEDS: ASCORBIC ACID 500 MG TAB PO SCH (09:56)
[2021-07-21] MEDS: CHOLECALCIFEROL (VITD3) 2,000 UNIT CAP/TAB PO SCH (09:56)
[2021-07-21] MEDS: ENOXAPARIN SOD 30 MG/0.3 ML SYRINGE SC SCH ×2 (09:56→21:44)
[2021-07-21 13:00] VITALS: BP 156/58
[2021-07-21 17:00] VITALS: BP 155/78
[2021-07-21] MEDS: INSULIN LANTUS (GLARGINE) 1 /0.01ml (100units/ml) SC SCH (21:42)
[2021-07-21] MEDS: LORazepam 0.5 MG TAB PO PRN (21:45)
[2021-07-21 22:00] VITALS: BP 148/73
[2021-07-22 05:00] VITALS: BP 141/59
[2021-07-22] MEDS: FUROSEMIDE 40 MG TAB PO SCH (06:21)
[2021-07-22] MEDS: SUCRALFATE 1 GM TAB PO SCH ×4 (06:22→21:47)
[2021-07-22] MEDS: ACCU-CHEK COMFORT CURVE STRIP VI SCH ×4 (06:22→21:47)
[2021-07-22] MEDS: InsuLIN REG 1unit/0.01ml Soln (100units/ml) SC SCH ×4 (06:22→21:19)
[2021-07-22] MEDS: FERROUS SULFATE 325mg EC TAB PO SCH ×2 (08:14→11:50)
[2021-07-22 09:00] VITALS: BP 118/56
[2021-07-22] MEDS: ZINC SULFATE 220mg CAP or TAB PO SCH (09:24)
[2021-07-22] MEDS: PANTOPRAZOLE 40 MG TAB PO SCH (09:25)
[2021-07-22] MEDS: ENOXAPARIN SOD 30 MG/0.3 ML SYRINGE SC SCH ×2 (09:25→21:47)
[2021-07-22] MEDS: ASCORBIC ACID 500 MG TAB PO SCH (09:25)
[2021-07-22] MEDS: METOPROLOL TARTRATE 25 MG TAB PO SCH ×2 (09:25→21:47)
[2021-07-22] MEDS: CHOLECALCIFEROL (VITD3) 2,000 UNIT CAP/TAB PO SCH (09:25)
[2021-07-22 10:48] VITALS: BP 121/59
[2021-07-22 13:00] VITALS: BP 145/70
[2021-07-22 17:00] VITALS: BP 143/70
[2021-07-22] MEDS: INSULIN LANTUS (GLARGINE) 1 /0.01ml (100units/ml) SC SCH (21:19)
[2021-07-22] MEDS: LORazepam 0.5 MG TAB PO PRN (21:50)
[2021-07-22 22:00] VITALS: BP 138/60
[2021-07-23 05:00] VITALS: BP 148/61
[2021-07-23] MEDS: SUCRALFATE 1 GM TAB PO SCH ×4 (06:00→21:24)
[2021-07-23] MEDS: InsuLIN REG 1unit/0.01ml Soln (100units/ml) SC SCH ×4 (06:11→22:04)
[2021-07-23] MEDS: ACCU-CHEK COMFORT CURVE STRIP VI SCH ×4 (06:11→22:03)
[2021-07-23 06:31] LABS: Basophils # (auto) 0 10 ^3/uL (0-0.2); Basophils % (auto) 0.6 % (0.0-2.0); Eosinophils # (auto) 0.4 10 ^3/uL (0-0.8); Eosinophils % (auto) 5.6 % (0.0-7.0); Hematocrit 35.6 % (36.0-46.0); Lymphocytes # (auto) 1.1 10 ^3/uL (0.4-5.4); Lymphocytes % (auto) 16.4 % (10.0-50.0); Mean Corpuscular Hemoglobin 29.2 pg (28.0-32.0); Mean Corpuscular Hgb Conc. 30.9 g/dL (32.0-36.0); Mean Corpuscular Volume 94.4 fL (80.0-100.0); Monocytes # (auto) 0.9 10 ^3/uL (0-1.3); Monocytes % (auto) 13.1 % (0.0-12.0); Neutrophils # (auto) 4.5 10 ^3/uL (1.6-8.6); Neutrophils % (auto) 64.3 % (37.0-80.0); Nucleated Red Blood Cells % 0.1 %; Red Blood Cells 3.77 10^6/uL (4.0-5.20); Red Cell Distribution Width 15.8 % (11.8-14.3)
[2021-07-23 07:09] LABS: Potassium 3.5 mmol/L (3.5-5.1)
[2021-07-23 07:13] LABS: BUN/Creatinine Ratio 31.9; Calcium 9.8 mg/dL (8.5-10.1)
[2021-07-23] MEDS: ENOXAPARIN SOD 30 MG/0.3 ML SYRINGE SC SCH ×2 (10:00→22:01)
[2021-07-23] MEDS: ZINC SULFATE 220mg CAP or TAB PO SCH (12:43)
[2021-07-23] MEDS: METOPROLOL TARTRATE 25 MG TAB PO SCH ×2 (12:44→22:06)
[2021-07-23] MEDS: ASCORBIC ACID 500 MG TAB PO SCH (12:45)
[2021-07-23] MEDS: CHOLECALCIFEROL (VITD3) 2,000 UNIT CAP/TAB PO SCH (12:49)
[2021-07-23 20:00] VITALS: BP 154/63
[2021-07-23 22:00] VITALS: BP 143/67
[2021-07-23] MEDS: INSULIN LANTUS (GLARGINE) 1 /0.01ml (100units/ml) SC SCH (22:03)
[2021-07-24] MEDS: LORazepam 0.5 MG TAB PO PRN ×2 (01:04→22:48)
[2021-07-24 06:08] VITALS: BP 147/66
[2021-07-24] MEDS: InsuLIN REG 1unit/0.01ml Soln (100units/ml) SC SCH ×4 (07:00→21:50)
[2021-07-24] MEDS: ACCU-CHEK COMFORT CURVE STRIP VI SCH ×4 (07:07→21:37)
[2021-07-24] MEDS: SUCRALFATE 1 GM TAB PO SCH ×4 (07:43→21:40)
[2021-07-24 09:00] VITALS: BP 138/68
[2021-07-24] MEDS: ENOXAPARIN SOD 30 MG/0.3 ML SYRINGE SC SCH ×2 (10:00→21:41)
[2021-07-24] MEDS: ZINC SULFATE 220mg CAP or TAB PO SCH (11:03)
[2021-07-24] MEDS: CHOLECALCIFEROL (VITD3) 2,000 UNIT CAP/TAB PO SCH (11:04)
[2021-07-24] MEDS: ASCORBIC ACID 500 MG TAB PO SCH (11:04)
[2021-07-24] MEDS: METOPROLOL TARTRATE 25 MG TAB PO SCH ×2 (11:05→21:41)
[2021-07-24 13:00] VITALS: BP 137/61
[2021-07-24 17:00] VITALS: BP 154/79
[2021-07-24] MEDS: FUROSEMIDE 40 MG TAB PO SCH (18:00)
[2021-07-24] MEDS: INSULIN LANTUS (GLARGINE) 1 /0.01ml (100units/ml) SC SCH (21:50)
[2021-07-24 22:00] VITALS: BP 137/69
[2021-07-25 05:00] VITALS: BP 152/69
[2021-07-25] MEDS: FUROSEMIDE 40 MG TAB PO SCH ×2 (06:07→18:46)
[2021-07-25] MEDS: ACCU-CHEK COMFORT CURVE STRIP VI SCH ×4 (06:07→21:49)
[2021-07-25] MEDS: SUCRALFATE 1 GM TAB PO SCH ×4 (06:07→21:48)
[2021-07-25] MEDS: InsuLIN REG 1unit/0.01ml Soln (100units/ml) SC SCH ×4 (06:15→21:59)
[2021-07-25 06:23] LABS: Calcium 9.7 mg/dL (8.5-10.1); Potassium 3.8 mmol/L (3.5-5.1)
[2021-07-25 06:25] LABS: BUN/Creatinine Ratio 36.6
[2021-07-25] MEDS: ENOXAPARIN SOD 30 MG/0.3 ML SYRINGE SC SCH ×2 (10:00→21:47)
[2021-07-25] MEDS: ZINC SULFATE 220mg CAP or TAB PO SCH (10:07)
[2021-07-25] MEDS: ASCORBIC ACID 500 MG TAB PO SCH (10:08)
[2021-07-25] MEDS: CHOLECALCIFEROL (VITD3) 2,000 UNIT CAP/TAB PO SCH (10:08)
[2021-07-25] MEDS: METOPROLOL TARTRATE 25 MG TAB PO SCH ×2 (10:08→21:48)
[2021-07-25 22:00] VITALS: BP 138/71
[2021-07-25] MEDS: INSULIN LANTUS (GLARGINE) 1 /0.01ml (100units/ml) SC SCH (22:00)
[2021-07-26] MEDS: LORazepam 0.5 MG TAB PO PRN ×2 (00:50→22:38)
[2021-07-26 05:00] VITALS: BP 134/58
[2021-07-26 05:41] LABS: Hemoglobin 10.1 g/dL (12.2-16.2)
[2021-07-26] MEDS: SUCRALFATE 1 GM TAB PO SCH ×4 (06:06→20:25)
[2021-07-26] MEDS: ACCU-CHEK COMFORT CURVE STRIP VI SCH ×4 (06:06→20:22)
[2021-07-26] MEDS: FUROSEMIDE 40 MG TAB PO SCH ×2 (06:06→19:01)
[2021-07-26 06:10] LABS: BUN/Creatinine Ratio 34.4; Calcium 9.4 mg/dL (8.5-10.1); Potassium 3.8 mmol/L (3.5-5.1)
[2021-07-26] MEDS: InsuLIN REG 1unit/0.01ml Soln (100units/ml) SC SCH ×4 (06:13→22:00)
[2021-07-26 08:00] VITALS: BP 147/65
[2021-07-26] MEDS: ENOXAPARIN SOD 30 MG/0.3 ML SYRINGE SC SCH ×2 (10:00→20:22)
[2021-07-26] MEDS: ZINC SULFATE 220mg CAP or TAB PO SCH (10:16)
[2021-07-26] MEDS: ASCORBIC ACID 500 MG TAB PO SCH (10:16)
[2021-07-26] MEDS: CHOLECALCIFEROL (VITD3) 2,000 UNIT CAP/TAB PO SCH (10:16)
[2021-07-26] MEDS: METOPROLOL TARTRATE 25 MG TAB PO SCH ×2 (10:16→20:25)
[2021-07-26 12:00] VITALS: BP 151/64
[2021-07-26 17:00] VITALS: BP 158/68
[2021-07-26] MEDS: INSULIN LANTUS (GLARGINE) 1 /0.01ml (100units/ml) SC SCH (19:10)
[2021-07-26 21:40] VITALS: BP 139/77
[2021-07-27] MEDS: FUROSEMIDE 40 MG TAB PO SCH ×2 (05:40→18:08)
[2021-07-27] MEDS: InsuLIN REG 1unit/0.01ml Soln (100units/ml) SC SCH ×4 (07:00→22:40)
[2021-07-27] MEDS: ACCU-CHEK COMFORT CURVE STRIP VI SCH ×4 (07:00→22:00)
[2021-07-27] MEDS: SUCRALFATE 1 GM TAB PO SCH ×4 (07:35→22:45)
[2021-07-27 08:00] VITALS: BP 105/63
[2021-07-27] MEDS: ASCORBIC ACID 500 MG TAB PO SCH (10:00)
[2021-07-27] MEDS: ENOXAPARIN SOD 30 MG/0.3 ML SYRINGE SC SCH ×2 (10:00→22:46)
[2021-07-27] MEDS: CHOLECALCIFEROL (VITD3) 2,000 UNIT CAP/TAB PO SCH (10:00)
[2021-07-27] MEDS: METOPROLOL TARTRATE 25 MG TAB PO SCH ×2 (10:31→22:50)
[2021-07-27] MEDS: ZINC SULFATE 220mg CAP or TAB PO SCH (10:31)
[2021-07-27 13:00] VITALS: BP 160/69
[2021-07-27 17:00] VITALS: BP 153/73
[2021-07-27 22:00] VITALS: BP 126/69
[2021-07-27] MEDS: INSULIN LANTUS (GLARGINE) 1 /0.01ml (100units/ml) SC SCH (22:59)
[2021-07-27] MEDS: LORazepam 0.5 MG TAB PO PRN (23:03)
[2021-07-28 05:00] VITALS: BP 130/55
[2021-07-28 05:42] LABS: Calcium 9.9 mg/dL (8.5-10.1); Potassium 3.7 mmol/L (3.5-5.1)
[2021-07-28] MEDS: FUROSEMIDE 40 MG TAB PO SCH ×2 (06:44→18:13)
[2021-07-28] MEDS: SUCRALFATE 1 GM TAB PO SCH ×4 (06:45→22:36)
[2021-07-28] MEDS: InsuLIN REG 1unit/0.01ml Soln (100units/ml) SC SCH ×4 (06:45→22:38)
[2021-07-28] MEDS: ACCU-CHEK COMFORT CURVE STRIP VI SCH ×4 (06:46→22:00)
[2021-07-28 08:34] VITALS: BP 141/69
[2021-07-28 09:28] VITALS: BP 141/69
[2021-07-28] MEDS: ENOXAPARIN SOD 30 MG/0.3 ML SYRINGE SC SCH ×2 (10:00→22:47)
[2021-07-28] MEDS: METOPROLOL TARTRATE 25 MG TAB PO SCH ×2 (10:49→22:37)
[2021-07-28] MEDS: ZINC SULFATE 220mg CAP or TAB PO SCH (10:49)
[2021-07-28] MEDS: ASCORBIC ACID 500 MG TAB PO SCH (10:50)
[2021-07-28] MEDS: CHOLECALCIFEROL (VITD3) 2,000 UNIT CAP/TAB PO SCH (10:50)
[2021-07-28 12:40] VITALS: BP 141/66
[2021-07-28 16:18] VITALS: BP 139/66
[2021-07-28 22:00] VITALS: BP 160/76
[2021-07-28] MEDS: INSULIN LANTUS (GLARGINE) 1 /0.01ml (100units/ml) SC SCH (22:42)
[2021-07-29 05:40] VITALS: BP 144/65
[2021-07-29 06:08] LABS: Basophils # (auto) 0 10 ^3/uL (0-0.2); Basophils % (auto) 0.5 % (0.0-2.0); Eosinophils # (auto) 0.4 10 ^3/uL (0-0.8); Eosinophils % (auto) 5.6 % (0.0-7.0); Hematocrit 33.2 % (36.0-46.0); Lymphocytes # (auto) 1.5 10 ^3/uL (0.4-5.4); Lymphocytes % (auto) 20.1 % (10.0-50.0); Mean Corpuscular Hemoglobin 29.9 pg (28.0-32.0); Mean Corpuscular Hgb Conc. 33.1 g/dL (32.0-36.0); Mean Corpuscular Volume 90.4 fL (80.0-100.0); Monocytes # (auto) 1.1 10 ^3/uL (0-1.3); Monocytes % (auto) 14.3 % (0.0-12.0); Neutrophils # (auto) 4.5 10 ^3/uL (1.6-8.6); Neutrophils % (auto) 59.5 % (37.0-80.0); Nucleated Red Blood Cells % 0.1 %; Red Blood Cells 3.68 10^6/uL (4.0-5.20); Red Cell Distribution Width 14.7 % (11.8-14.3); White Blood Cell 7.6 10^3/uL (4.4-10.8)
[2021-07-29 06:20] LABS: BUN/Creatinine Ratio 35.8; Calcium 9.7 mg/dL (8.5-10.1)
[2021-07-29] MEDS: FUROSEMIDE 40 MG TAB PO SCH ×2 (06:31→17:10)
[2021-07-29] MEDS: SUCRALFATE 1 GM TAB PO SCH ×4 (06:31→22:48)
[2021-07-29] MEDS: ACCU-CHEK COMFORT CURVE STRIP VI SCH ×4 (06:32→22:00)
[2021-07-29] MEDS: InsuLIN REG 1unit/0.01ml Soln (100units/ml) SC SCH ×4 (06:52→22:50)
[2021-07-29] MEDS: ENOXAPARIN SOD 30 MG/0.3 ML SYRINGE SC SCH ×3 (10:00→22:55)
[2021-07-29] MEDS: ASCORBIC ACID 500 MG TAB PO SCH (10:45)
[2021-07-29] MEDS: CHOLECALCIFEROL (VITD3) 2,000 UNIT CAP/TAB PO SCH (10:45)
[2021-07-29] MEDS: ZINC SULFATE 220mg CAP or TAB PO SCH (10:45)
[2021-07-29] MEDS: METOPROLOL TARTRATE 25 MG TAB PO SCH ×2 (10:46→22:48)
[2021-07-29 13:00] VITALS: BP 138/71
[2021-07-29 17:23] VITALS: BP 133/67
[2021-07-29 22:00] VITALS: BP 153/56
[2021-07-29] MEDS: INSULIN LANTUS (GLARGINE) 1 /0.01ml (100units/ml) SC SCH (22:49)
[2021-07-29] MEDS: LORazepam 0.5 MG TAB PO PRN (22:55)
[2021-07-30 06:00] VITALS: BP 135/61
[2021-07-30] MEDS: SUCRALFATE 1 GM TAB PO SCH ×4 (06:17→22:17)
[2021-07-30] MEDS: FUROSEMIDE 40 MG TAB PO SCH ×2 (06:17→18:03)
[2021-07-30] MEDS: InsuLIN REG 1unit/0.01ml Soln (100units/ml) SC SCH ×4 (06:18→22:19)
[2021-07-30] MEDS: ACCU-CHEK COMFORT CURVE STRIP VI SCH ×4 (06:18→22:19)
[2021-07-30 06:19] LABS: Basophils # (auto) 0.1 10 ^3/uL (0-0.2); Basophils % (auto) 0.8 % (0.0-2.0); Eosinophils # (auto) 0.4 10 ^3/uL (0-0.8); Eosinophils % (auto) 5.4 % (0.0-7.0); Hematocrit 31.7 % (36.0-46.0); Hemoglobin 10.6 g/dL (12.2-16.2); Lymphocytes # (auto) 1.6 10 ^3/uL (0.4-5.4); Lymphocytes % (auto) 20.8 % (10.0-50.0); Mean Corpuscular Hemoglobin 29.9 pg (28.0-32.0); Mean Corpuscular Hgb Conc. 33.3 g/dL (32.0-36.0); Mean Corpuscular Volume 89.8 fL (80.0-100.0); Monocytes % (auto) 13.7 % (0.0-12.0); Neutrophils # (auto) 4.5 10 ^3/uL (1.6-8.6); Neutrophils % (auto) 59.3 % (37.0-80.0); Nucleated Red Blood Cells % 0.2 %; Red Blood Cells 3.53 10^6/uL (4.0-5.20); Red Cell Distribution Width 14.6 % (11.8-14.3); White Blood Cell 7.5 10^3/uL (4.4-10.8)
[2021-07-30 06:38] LABS: Albumin 2.2 g/dL (3.4-5.0); Calcium 9.8 mg/dL (8.5-10.1)
[2021-07-30 06:41] LABS: BUN/Creatinine Ratio 35.1; Bilirubin, Total 0.3 mg/dL (0.2-1.0); Total Protein 6.5 g/dL (6.4-8.2)
[2021-07-30 08:00] VITALS: BP 141/102
[2021-07-30] MEDS: ENOXAPARIN SOD 30 MG/0.3 ML SYRINGE SC SCH ×2 (10:00→22:20)
[2021-07-30] MEDS: ASCORBIC ACID 500 MG TAB PO SCH (10:55)
[2021-07-30] MEDS: ZINC SULFATE 220mg CAP or TAB PO SCH (10:55)
[2021-07-30] MEDS: CHOLECALCIFEROL (VITD3) 2,000 UNIT CAP/TAB PO SCH (10:56)
[2021-07-30] MEDS: METOPROLOL TARTRATE 25 MG TAB PO SCH ×2 (10:56→22:17)
[2021-07-30 13:12] VITALS: BP 127/71
[2021-07-30 17:00] VITALS: BP 135/74
[2021-07-30 22:00] VITALS: BP 144/68
[2021-07-30] MEDS: INSULIN LANTUS (GLARGINE) 1 /0.01ml (100units/ml) SC SCH (22:18)
[2021-07-30] MEDS: LORazepam 0.5 MG TAB PO PRN (22:20)
[2021-07-31 05:22] VITALS: BP 123/56
[2021-07-31] MEDS: FUROSEMIDE 40 MG TAB PO SCH (06:30)
[2021-07-31] MEDS: SUCRALFATE 1 GM TAB PO SCH ×4 (06:47→22:52)
[2021-07-31] MEDS: ACCU-CHEK COMFORT CURVE STRIP VI SCH ×4 (06:47→22:00)
[2021-07-31] MEDS: InsuLIN REG 1unit/0.01ml Soln (100units/ml) SC SCH ×4 (06:48→22:30)
[2021-07-31 06:59] LABS: BUN/Creatinine Ratio 36.3; Potassium 3.9 mmol/L (3.5-5.1)
[2021-07-31 09:00] VITALS: BP 139/78
[2021-07-31] MEDS: CHOLECALCIFEROL (VITD3) 2,000 UNIT CAP/TAB PO SCH (11:02)
[2021-07-31] MEDS: ZINC SULFATE 220mg CAP or TAB PO SCH (11:02)
[2021-07-31] MEDS: METOPROLOL TARTRATE 25 MG TAB PO SCH ×2 (11:02→22:53)
[2021-07-31] MEDS: ASCORBIC ACID 500 MG TAB PO SCH (11:02)
[2021-07-31] MEDS: ENOXAPARIN SOD 30 MG/0.3 ML SYRINGE SC SCH ×2 (11:03→11:10)
[2021-07-31 13:00] VITALS: BP 126/70
[2021-07-31 16:37] VITALS: BP 141/64
[2021-07-31 22:00] VITALS: BP 153/60
[2021-07-31] MEDS: INSULIN LANTUS (GLARGINE) 1 /0.01ml (100units/ml) SC SCH (22:30)
[2021-07-31] MEDS: LORazepam 0.5 MG TAB PO PRN (22:53)
[2021-08-01 05:00] VITALS: BP 138/66
[2021-08-01] MEDS: SUCRALFATE 1 GM TAB PO SCH ×4 (06:29→21:21)
[2021-08-01] MEDS: ACCU-CHEK COMFORT CURVE STRIP VI SCH ×4 (06:30→21:21)
[2021-08-01] MEDS: InsuLIN REG 1unit/0.01ml Soln (100units/ml) SC SCH ×4 (06:55→23:43)
[2021-08-01 07:18] LABS: Hematocrit 32.4 % (36.0-46.0); Hemoglobin 10.8 g/dL (12.2-16.2)
[2021-08-01 07:40] LABS: BUN/Creatinine Ratio 36.4; Calcium 10.4 mg/dL (8.5-10.1); Magnesium 2.1 mg/dL (1.6-2.6); Potassium 4.2 mmol/L (3.5-5.1)
[2021-08-01 09:00] VITALS: BP 121/59
[2021-08-01] MEDS: ENOXAPARIN SOD 30 MG/0.3 ML SYRINGE SC SCH ×2 (10:00→23:32)
[2021-08-01] MEDS: ZINC SULFATE 220mg CAP or TAB PO SCH (10:53)
[2021-08-01] MEDS: CHOLECALCIFEROL (VITD3) 2,000 UNIT CAP/TAB PO SCH (10:56)
[2021-08-01] MEDS: METOPROLOL TARTRATE 25 MG TAB PO SCH ×2 (10:56→21:20)
[2021-08-01] MEDS: ASCORBIC ACID 500 MG TAB PO SCH (10:56)
[2021-08-01] MEDS: FUROSEMIDE 40 MG TAB PO SCH (11:00)
[2021-08-01 13:00] VITALS: BP 150/71
[2021-08-01 17:00] VITALS: BP 141/57
[2021-08-01 22:00] VITALS: BP 146/72
[2021-08-01] MEDS: LORazepam 0.5 MG TAB PO PRN (23:40)
[2021-08-01] MEDS: INSULIN LANTUS (GLARGINE) 1 /0.01ml (100units/ml) SC SCH (23:42)
[2021-08-02 05:00] VITALS: BP 134/74
[2021-08-02] MEDS: InsuLIN REG 1unit/0.01ml Soln (100units/ml) SC SCH ×4 (07:00→22:30)
[2021-08-02] MEDS: ACCU-CHEK COMFORT CURVE STRIP VI SCH ×4 (07:05→22:11)
[2021-08-02] MEDS: SUCRALFATE 1 GM TAB PO SCH ×4 (07:31→22:11)
[2021-08-02 09:00] VITALS: BP 135/72
[2021-08-02] MEDS: ZINC SULFATE 220mg CAP or TAB PO SCH (09:52)
[2021-08-02] MEDS: FUROSEMIDE 40 MG TAB PO SCH (09:52)
[2021-08-02] MEDS: METOPROLOL TARTRATE 25 MG TAB PO SCH ×2 (09:52→22:11)
[2021-08-02] MEDS: ASCORBIC ACID 500 MG TAB PO SCH (09:52)
[2021-08-02] MEDS: CHOLECALCIFEROL (VITD3) 2,000 UNIT CAP/TAB PO SCH (09:53)
[2021-08-02] MEDS: ENOXAPARIN SOD 30 MG/0.3 ML SYRINGE SC SCH ×2 (09:53→22:11)
[2021-08-02 13:00] VITALS: BP 143/69
[2021-08-02] MEDS ORDERED: SUCR1TAB22 PO (14:02)
[2021-08-02] MEDS ORDERED: FURO1TAB31 PO (14:02)
[2021-08-02] MEDS ORDERED: ASCO500T11 PO (14:02)
[2021-08-02] MEDS ORDERED: MET25T PO (14:02)
[2021-08-02] MEDS ORDERED: INSLANTI SC (14:02)
[2021-08-02] MEDS ORDERED: CHOL20007 PO (14:02)
[2021-08-02 16:40] VITALS: BP 142/66
[2021-08-02 22:00] VITALS: BP 139/57
[2021-08-02] MEDS: INSULIN LANTUS (GLARGINE) 1 /0.01ml (100units/ml) SC SCH (22:30)
[2021-08-02] MEDS: LORazepam 0.5 MG TAB PO PRN (22:30)
[2021-08-03 05:00] VITALS: BP 112/56
[2021-08-03] MEDS: InsuLIN REG 1unit/0.01ml Soln (100units/ml) SC SCH ×4 (07:00→22:00)
[2021-08-03] MEDS: ACCU-CHEK COMFORT CURVE STRIP VI SCH ×4 (07:06→21:56)
[2021-08-03] MEDS: SUCRALFATE 1 GM TAB PO SCH ×4 (07:06→21:55)
[2021-08-03 07:56] LABS: BUN/Creatinine Ratio 31.9; Calcium 10.3 mg/dL (8.5-10.1); Potassium 4.2 mmol/L (3.5-5.1)
[2021-08-03 09:00] VITALS: BP 119/58
[2021-08-03] MEDS: FUROSEMIDE 40 MG TAB PO SCH (09:30)
[2021-08-03] MEDS: CHOLECALCIFEROL (VITD3) 2,000 UNIT CAP/TAB PO SCH (09:31)
[2021-08-03] MEDS: ASCORBIC ACID 500 MG TAB PO SCH (09:31)
[2021-08-03] MEDS: METOPROLOL TARTRATE 25 MG TAB PO SCH ×2 (09:31→21:56)
[2021-08-03] MEDS: ENOXAPARIN SOD 30 MG/0.3 ML SYRINGE SC SCH ×2 (09:31→21:55)
[2021-08-03 13:00] VITALS: BP 140/68
[2021-08-03 17:00] VITALS: BP 155/64
[2021-08-03] MEDS: INSULIN LANTUS (GLARGINE) 1 /0.01ml (100units/ml) SC SCH (22:00)
[2021-08-03 22:06] VITALS: BP 117/62
[2021-08-03] MEDS: LORazepam 0.5 MG TAB PO PRN (23:20)
[2021-08-04 05:18] VITALS: BP 138/70
[2021-08-04] MEDS: InsuLIN REG 1unit/0.01ml Soln (100units/ml) SC SCH ×4 (06:27→22:41)
[2021-08-04] MEDS: ACCU-CHEK COMFORT CURVE STRIP VI SCH ×4 (06:27→22:34)
[2021-08-04] MEDS: SUCRALFATE 1 GM TAB PO SCH ×4 (06:28→22:33)
[2021-08-04 08:15] VITALS: BP 136/92
[2021-08-04 09:00] VITALS: BP 136/92
[2021-08-04] MEDS: ENOXAPARIN SOD 30 MG/0.3 ML SYRINGE SC SCH ×2 (10:00→22:34)
[2021-08-04] MEDS: FUROSEMIDE 40 MG TAB PO SCH (10:15)
[2021-08-04] MEDS: METOPROLOL TARTRATE 25 MG TAB PO SCH ×2 (10:15→22:34)
[2021-08-04] MEDS: ASCORBIC ACID 500 MG TAB PO SCH (10:15)
[2021-08-04] MEDS: CHOLECALCIFEROL (VITD3) 2,000 UNIT CAP/TAB PO SCH (10:15)
[2021-08-04 13:00] VITALS: BP 146/62
[2021-08-04 17:00] VITALS: BP 151/74
[2021-08-04 22:00] VITALS: BP 138/72
[2021-08-04] MEDS: LORazepam 0.5 MG TAB PO PRN (22:35)
[2021-08-04] MEDS: INSULIN LANTUS (GLARGINE) 1 /0.01ml (100units/ml) SC SCH (22:40)
[2021-08-05 05:00] VITALS: BP 129/64
[2021-08-05] MEDS: SUCRALFATE 1 GM TAB PO SCH ×4 (06:11→22:30)
[2021-08-05] MEDS: ACCU-CHEK COMFORT CURVE STRIP VI SCH ×4 (06:11→22:30)
[2021-08-05] MEDS: InsuLIN REG 1unit/0.01ml Soln (100units/ml) SC SCH ×4 (06:12→22:44)
[2021-08-05 08:15] VITALS: BP 143/67
[2021-08-05 09:00] VITALS: BP 143/67
[2021-08-05] MEDS: CHOLECALCIFEROL (VITD3) 2,000 UNIT CAP/TAB PO SCH (10:22)
[2021-08-05] MEDS: FUROSEMIDE 40 MG TAB PO SCH (10:22)
[2021-08-05] MEDS: ASCORBIC ACID 500 MG TAB PO SCH (10:22)
[2021-08-05] MEDS: METOPROLOL TARTRATE 25 MG TAB PO SCH ×2 (10:22→22:31)
[2021-08-05] MEDS: ENOXAPARIN SOD 30 MG/0.3 ML SYRINGE SC SCH ×2 (10:23→22:30)
[2021-08-05 12:30] VITALS: BP 129/62
[2021-08-05 22:00] VITALS: BP 128/62
[2021-08-05] MEDS: INSULIN LANTUS (GLARGINE) 1 /0.01ml (100units/ml) SC SCH (22:00)
[2021-08-05] MEDS: LORazepam 0.5 MG TAB PO PRN (22:31)
[2021-08-06 05:00] VITALS: BP 124/64
[2021-08-06] MEDS: ACCU-CHEK COMFORT CURVE STRIP VI SCH ×4 (06:49→22:43)
[2021-08-06] MEDS: SUCRALFATE 1 GM TAB PO SCH ×4 (06:49→22:38)
[2021-08-06] MEDS: InsuLIN REG 1unit/0.01ml Soln (100units/ml) SC SCH ×4 (06:51→22:46)
[2021-08-06 09:12] VITALS: BP 128/65
[2021-08-06] MEDS: ENOXAPARIN SOD 30 MG/0.3 ML SYRINGE SC SCH ×3 (10:00→22:43)
[2021-08-06] MEDS: ASCORBIC ACID 500 MG TAB PO SCH (10:09)
[2021-08-06] MEDS: FUROSEMIDE 40 MG TAB PO SCH (10:09)
[2021-08-06] MEDS: CHOLECALCIFEROL (VITD3) 2,000 UNIT CAP/TAB PO SCH (10:10)
[2021-08-06] MEDS: METOPROLOL TARTRATE 25 MG TAB PO SCH ×2 (10:10→22:42)
[2021-08-06 13:00] VITALS: BP 138/72
[2021-08-06 17:28] VITALS: BP 138/67
[2021-08-06 22:00] VITALS: BP 120/60
[2021-08-06] MEDS: LORazepam 0.5 MG TAB PO PRN (22:44)
[2021-08-06] MEDS: INSULIN LANTUS (GLARGINE) 1 /0.01ml (100units/ml) SC SCH (22:47)
[2021-08-07 05:00] VITALS: BP 149/69
[2021-08-07] MEDS: SUCRALFATE 1 GM TAB PO SCH ×4 (06:28→22:00)
[2021-08-07] MEDS: ACCU-CHEK COMFORT CURVE STRIP VI SCH ×4 (06:29→22:28)
[2021-08-07] MEDS: InsuLIN REG 1unit/0.01ml Soln (100units/ml) SC SCH ×4 (06:29→22:27)
[2021-08-07 07:25] LABS: Hematocrit 34.2 % (36.0-46.0); Hemoglobin 11.4 g/dL (12.2-16.2)
[2021-08-07 08:15] LABS: Potassium 4.2 mmol/L (3.5-5.1)
[2021-08-07 08:19] LABS: BUN/Creatinine Ratio 37.6; Calcium 10.4 mg/dL (8.5-10.1); Magnesium 2.1 mg/dL (1.6-2.6)
[2021-08-07 09:46] VITALS: BP 131/69
[2021-08-07] MEDS: FUROSEMIDE 40 MG TAB PO SCH (09:51)
[2021-08-07] MEDS: ASCORBIC ACID 500 MG TAB PO SCH (09:51)
[2021-08-07] MEDS: METOPROLOL TARTRATE 25 MG TAB PO SCH ×2 (09:52→22:25)
[2021-08-07] MEDS: CHOLECALCIFEROL (VITD3) 2,000 UNIT CAP/TAB PO SCH (09:52)
[2021-08-07] MEDS: ENOXAPARIN SOD 30 MG/0.3 ML SYRINGE SC SCH ×2 (09:53→22:24)
[2021-08-07 12:57] VITALS: BP 135/56
[2021-08-07 16:58] VITALS: BP 136/64
[2021-08-07 22:00] VITALS: BP 139/68
[2021-08-07] MEDS: INSULIN LANTUS (GLARGINE) 1 /0.01ml (100units/ml) SC SCH (22:28)
[2021-08-07] MEDS: LORazepam 0.5 MG TAB PO PRN (22:38)
[2021-08-08 05:00] VITALS: BP 123/51
[2021-08-08] MEDS: SUCRALFATE 1 GM TAB PO SCH ×4 (06:16→22:44)
[2021-08-08] MEDS: InsuLIN REG 1unit/0.01ml Soln (100units/ml) SC SCH ×4 (06:18→23:03)
[2021-08-08] MEDS: ACCU-CHEK COMFORT CURVE STRIP VI SCH ×4 (06:19→22:41)
[2021-08-08 09:00] VITALS: BP 151/76
[2021-08-08] MEDS: FUROSEMIDE 40 MG TAB PO SCH (09:10)
[2021-08-08] MEDS: ASCORBIC ACID 500 MG TAB PO SCH (09:10)
[2021-08-08] MEDS: METOPROLOL TARTRATE 25 MG TAB PO SCH ×2 (09:11→22:44)
[2021-08-08] MEDS: CHOLECALCIFEROL (VITD3) 2,000 UNIT CAP/TAB PO SCH (09:11)
[2021-08-08] MEDS: ENOXAPARIN SOD 30 MG/0.3 ML SYRINGE SC SCH ×2 (09:12→22:42)
[2021-08-08 13:00] VITALS: BP 112/54
[2021-08-08 17:00] VITALS: BP 134/67
[2021-08-08 22:00] VITALS: BP 118/61
[2021-08-08] MEDS: LORazepam 0.5 MG TAB PO PRN (22:41)
[2021-08-08] MEDS: INSULIN LANTUS (GLARGINE) 1 /0.01ml (100units/ml) SC SCH (23:03)
[2021-08-09 05:00] VITALS: BP 130/57
[2021-08-09] MEDS: ACCU-CHEK COMFORT CURVE STRIP VI SCH ×4 (06:28→22:36)
[2021-08-09] MEDS: InsuLIN REG 1unit/0.01ml Soln (100units/ml) SC SCH ×4 (06:29→22:33)
[2021-08-09] MEDS: SUCRALFATE 1 GM TAB PO SCH ×4 (06:30→22:30)
[2021-08-09] MEDS: FUROSEMIDE 40 MG TAB PO SCH (09:00)
[2021-08-09] MEDS: ASCORBIC ACID 500 MG TAB PO SCH (09:01)
[2021-08-09] MEDS: ENOXAPARIN SOD 30 MG/0.3 ML SYRINGE SC SCH ×2 (09:01→22:35)
[2021-08-09] MEDS: METOPROLOL TARTRATE 25 MG TAB PO SCH ×2 (09:01→22:30)
[2021-08-09] MEDS: CHOLECALCIFEROL (VITD3) 2,000 UNIT CAP/TAB PO SCH (09:01)
[2021-08-09 09:25] VITALS: BP 150/67
[2021-08-09 12:31] VITALS: BP 138/71
[2021-08-09 16:51] VITALS: BP 143/70
[2021-08-09] MEDS: INSULIN LANTUS (GLARGINE) 1 /0.01ml (100units/ml) SC SCH (22:34)
[2021-08-09] MEDS: LORazepam 0.5 MG TAB PO PRN (22:41)
[2021-08-10 06:00] VITALS: BP 171/78
[2021-08-10] MEDS: InsuLIN REG 1unit/0.01ml Soln (100units/ml) SC SCH ×3 (06:10→17:00)
[2021-08-10] MEDS: SUCRALFATE 1 GM TAB PO SCH ×3 (06:13→17:00)
[2021-08-10 06:56] LABS: Hematocrit 35.9 % (36.0-46.0); Hemoglobin 11.8 g/dL (12.2-16.2)
[2021-08-10 07:45] LABS: BUN/Creatinine Ratio 37.1; Calcium 10.5 mg/dL (8.5-10.1)
[2021-08-10 08:00] VITALS: BP 134/66
[2021-08-10] MEDS: METOPROLOL TARTRATE 25 MG TAB PO SCH ×2 (08:53→10:00)
[2021-08-10] MEDS: FUROSEMIDE 40 MG TAB PO SCH (08:53)
[2021-08-10] MEDS: CHOLECALCIFEROL (VITD3) 2,000 UNIT CAP/TAB PO SCH (08:54)
[2021-08-10] MEDS: ENOXAPARIN SOD 30 MG/0.3 ML SYRINGE SC SCH (08:54)
[2021-08-10] MEDS: ASCORBIC ACID 500 MG TAB PO SCH (08:54)
[2021-08-10 09:00] VITALS: BP 131/44
[2021-08-10 13:00] VITALS: BP 144/79
[2021-08-10] MEDS ORDERED: ALBUTEROL SULF 2.5 MG/0.5ML(0.5%) NEB SOLN NEB PRN (14:00)
[2021-08-10 17:00] VITALS: BP 147/65
[2021-08-10] MEDS: ACCU-CHEK COMFORT CURVE STRIP VI SCH (17:00)
== END 2021-08-10 17:26 | DRG 280 ==
LOC: EDBD 19:55 → ER 20:16 → TELE 04-30 06:36 → TELE-WESTW 04-30 11:53 → OVERFLOW 06-06 08:38 → TELE-WESTW 06-06 08:40 → TELE 06-06 14:33 → TELE-WESTW 06-06 14:42
PROVIDERS: ADMIT Nurse Practitioner; ATTEND Internal Medicine
PROC: 5A09357 Assistance with Respiratory Ventilation, Less than 24 Consecutive Hours, Continuous Positive Airway Pressure (ICD-10-PCS; 2021-05-06)
PROC: 5A09357 Assistance with Respiratory Ventilation, Less than 24 Consecutive Hours, Continuous Positive Airway Pressure (ICD-10-PCS; 2021-05-08)
PROC: 5A09357 Assistance with Respiratory Ventilation, Less than 24 Consecutive Hours, Continuous Positive Airway Pressure (ICD-10-PCS; 2021-05-09)
PROC: 5A09357 Assistance with Respiratory Ventilation, Less than 24 Consecutive Hours, Continuous Positive Airway Pressure (ICD-10-PCS; 2021-05-10)
PROC: 5A09357 Assistance with Respiratory Ventilation, Less than 24 Consecutive Hours, Continuous Positive Airway Pressure (ICD-10-PCS; 2021-05-11)
PROC: 5A09357 Assistance with Respiratory Ventilation, Less than 24 Consecutive Hours, Continuous Positive Airway Pressure (ICD-10-PCS; 2021-05-16)
PROC: 5A09357 Assistance with Respiratory Ventilation, Less than 24 Consecutive Hours, Continuous Positive Airway Pressure (ICD-10-PCS; 2021-05-17)
PROC: 5A09357 Assistance with Respiratory Ventilation, Less than 24 Consecutive Hours, Continuous Positive Airway Pressure (ICD-10-PCS; 2021-05-19)
PROC: 5A09357 Assistance with Respiratory Ventilation, Less than 24 Consecutive Hours, Continuous Positive Airway Pressure (ICD-10-PCS; 2021-05-20)
PROC: 5A09357 Assistance with Respiratory Ventilation, Less than 24 Consecutive Hours, Continuous Positive Airway Pressure (ICD-10-PCS; 2021-05-21)
PROC: 5A09357 Assistance with Respiratory Ventilation, Less than 24 Consecutive Hours, Continuous Positive Airway Pressure (ICD-10-PCS; 2021-05-22)
PROC: 5A09357 Assistance with Respiratory Ventilation, Less than 24 Consecutive Hours, Continuous Positive Airway Pressure (ICD-10-PCS; 2021-05-23)
PROC: 5A09357 Assistance with Respiratory Ventilation, Less than 24 Consecutive Hours, Continuous Positive Airway Pressure (ICD-10-PCS; 2021-05-24)
PROC: 5A09357 Assistance with Respiratory Ventilation, Less than 24 Consecutive Hours, Continuous Positive Airway Pressure (ICD-10-PCS; 2021-05-25)
PROC: 5A09357 Assistance with Respiratory Ventilation, Less than 24 Consecutive Hours, Continuous Positive Airway Pressure (ICD-10-PCS; 2021-05-30)
PROC: 5A09357 Assistance with Respiratory Ventilation, Less than 24 Consecutive Hours, Continuous Positive Airway Pressure (ICD-10-PCS; 2021-06-01)
PROC: 5A09357 Assistance with Respiratory Ventilation, Less than 24 Consecutive Hours, Continuous Positive Airway Pressure (ICD-10-PCS; 2021-06-02)
PROC: 5A09357 Assistance with Respiratory Ventilation, Less than 24 Consecutive Hours, Continuous Positive Airway Pressure (ICD-10-PCS; 2021-06-03)
PROC: 5A09357 Assistance with Respiratory Ventilation, Less than 24 Consecutive Hours, Continuous Positive Airway Pressure (ICD-10-PCS; 2021-06-04)
PROC: 5A09357 Assistance with Respiratory Ventilation, Less than 24 Consecutive Hours, Continuous Positive Airway Pressure (ICD-10-PCS; 2021-06-05)
PROC: 5A09357 Assistance with Respiratory Ventilation, Less than 24 Consecutive Hours, Continuous Positive Airway Pressure (ICD-10-PCS; 2021-06-06)
PROC: 5A09357 Assistance with Respiratory Ventilation, Less than 24 Consecutive Hours, Continuous Positive Airway Pressure (ICD-10-PCS; 2021-06-07)
PROC: 5A09357 Assistance with Respiratory Ventilation, Less than 24 Consecutive Hours, Continuous Positive Airway Pressure (ICD-10-PCS; 2021-06-08)
PROC: 5A09357 Assistance with Respiratory Ventilation, Less than 24 Consecutive Hours, Continuous Positive Airway Pressure (ICD-10-PCS; 2021-06-09)
PROC: 5A09357 Assistance with Respiratory Ventilation, Less than 24 Consecutive Hours, Continuous Positive Airway Pressure (ICD-10-PCS; 2021-06-10)
PROC: 5A09357 Assistance with Respiratory Ventilation, Less than 24 Consecutive Hours, Continuous Positive Airway Pressure (ICD-10-PCS; 2021-06-11)
PROC: 0W993ZZ Drainage of Right Pleural Cavity, Percutaneous Approach (ICD-10-PCS; principal; 2021-06-12)
PROC: 5A09357 Assistance with Respiratory Ventilation, Less than 24 Consecutive Hours, Continuous Positive Airway Pressure (ICD-10-PCS; 2021-06-12)
PROC: 5A09357 Assistance with Respiratory Ventilation, Less than 24 Consecutive Hours, Continuous Positive Airway Pressure (ICD-10-PCS; 2021-06-14)
PROC: 5A09357 Assistance with Respiratory Ventilation, Less than 24 Consecutive Hours, Continuous Positive Airway Pressure (ICD-10-PCS; 2021-06-15)
PROC: 5A09357 Assistance with Respiratory Ventilation, Less than 24 Consecutive Hours, Continuous Positive Airway Pressure (ICD-10-PCS; 2021-06-16)
PROC: 5A09357 Assistance with Respiratory Ventilation, Less than 24 Consecutive Hours, Continuous Positive Airway Pressure (ICD-10-PCS; 2021-06-17)
PROC: 5A09357 Assistance with Respiratory Ventilation, Less than 24 Consecutive Hours, Continuous Positive Airway Pressure (ICD-10-PCS; 2021-06-18)
PROC: 5A09357 Assistance with Respiratory Ventilation, Less than 24 Consecutive Hours, Continuous Positive Airway Pressure (ICD-10-PCS; 2021-06-20)
PROC: 5A09357 Assistance with Respiratory Ventilation, Less than 24 Consecutive Hours, Continuous Positive Airway Pressure (ICD-10-PCS; 2021-06-22)
PROC: 5A09357 Assistance with Respiratory Ventilation, Less than 24 Consecutive Hours, Continuous Positive Airway Pressure (ICD-10-PCS; 2021-06-23)
PROC: 5A09357 Assistance with Respiratory Ventilation, Less than 24 Consecutive Hours, Continuous Positive Airway Pressure (ICD-10-PCS; 2021-06-24)
PROC: 5A09357 Assistance with Respiratory Ventilation, Less than 24 Consecutive Hours, Continuous Positive Airway Pressure (ICD-10-PCS; 2021-06-25)
PROC: 5A09357 Assistance with Respiratory Ventilation, Less than 24 Consecutive Hours, Continuous Positive Airway Pressure (ICD-10-PCS; 2021-06-26)
PROC: 5A09357 Assistance with Respiratory Ventilation, Less than 24 Consecutive Hours, Continuous Positive Airway Pressure (ICD-10-PCS; 2021-06-28)
PROC: 5A09357 Assistance with Respiratory Ventilation, Less than 24 Consecutive Hours, Continuous Positive Airway Pressure (ICD-10-PCS; 2021-06-29)
PROC: 5A09357 Assistance with Respiratory Ventilation, Less than 24 Consecutive Hours, Continuous Positive Airway Pressure (ICD-10-PCS; 2021-06-30)
PROC: 5A09357 Assistance with Respiratory Ventilation, Less than 24 Consecutive Hours, Continuous Positive Airway Pressure (ICD-10-PCS; 2021-07-01)
PROC: 5A09357 Assistance with Respiratory Ventilation, Less than 24 Consecutive Hours, Continuous Positive Airway Pressure (ICD-10-PCS; 2021-07-03)
PROC: 5A09357 Assistance with Respiratory Ventilation, Less than 24 Consecutive Hours, Continuous Positive Airway Pressure (ICD-10-PCS; 2021-07-04)
PROC: 5A09357 Assistance with Respiratory Ventilation, Less than 24 Consecutive Hours, Continuous Positive Airway Pressure (ICD-10-PCS; 2021-07-05)
PROC: 5A09357 Assistance with Respiratory Ventilation, Less than 24 Consecutive Hours, Continuous Positive Airway Pressure (ICD-10-PCS; 2021-07-06)
PROC: 5A09357 Assistance with Respiratory Ventilation, Less than 24 Consecutive Hours, Continuous Positive Airway Pressure (ICD-10-PCS; 2021-07-08)
PROC: 30233N1 Transfusion of Nonautologous Red Blood Cells into Peripheral Vein, Percutaneous Approach (ICD-10-PCS; 2021-07-09)
PROC: 5A09357 Assistance with Respiratory Ventilation, Less than 24 Consecutive Hours, Continuous Positive Airway Pressure (ICD-10-PCS; 2021-07-09)
PROC: 5A09357 Assistance with Respiratory Ventilation, Less than 24 Consecutive Hours, Continuous Positive Airway Pressure (ICD-10-PCS; 2021-07-10)
PROC: 5A09357 Assistance with Respiratory Ventilation, Less than 24 Consecutive Hours, Continuous Positive Airway Pressure (ICD-10-PCS; 2021-07-11)
PROC: 5A09357 Assistance with Respiratory Ventilation, Less than 24 Consecutive Hours, Continuous Positive Airway Pressure (ICD-10-PCS; 2021-07-12)
PROC: 5A09357 Assistance with Respiratory Ventilation, Less than 24 Consecutive Hours, Continuous Positive Airway Pressure (ICD-10-PCS; 2021-07-13)
PROC: 05HA33Z Insertion of Infusion Device into Left Brachial Vein, Percutaneous Approach (ICD-10-PCS; 2021-07-14)
PROC: B54NZZA Ultrasonography of Left Upper Extremity Veins, Guidance (ICD-10-PCS; 2021-07-14)
PROC: 5A09357 Assistance with Respiratory Ventilation, Less than 24 Consecutive Hours, Continuous Positive Airway Pressure (ICD-10-PCS; 2021-07-14)
PROC: 5A09357 Assistance with Respiratory Ventilation, Less than 24 Consecutive Hours, Continuous Positive Airway Pressure (ICD-10-PCS; 2021-07-15)
PROC: 5A09357 Assistance with Respiratory Ventilation, Less than 24 Consecutive Hours, Continuous Positive Airway Pressure (ICD-10-PCS; 2021-07-16)
PROC: 5A09357 Assistance with Respiratory Ventilation, Less than 24 Consecutive Hours, Continuous Positive Airway Pressure (ICD-10-PCS; 2021-07-17)
PROC: 5A09357 Assistance with Respiratory Ventilation, Less than 24 Consecutive Hours, Continuous Positive Airway Pressure (ICD-10-PCS; 2021-07-18)
PROC: 5A09357 Assistance with Respiratory Ventilation, Less than 24 Consecutive Hours, Continuous Positive Airway Pressure (ICD-10-PCS; 2021-07-19)
PROC: 5A09357 Assistance with Respiratory Ventilation, Less than 24 Consecutive Hours, Continuous Positive Airway Pressure (ICD-10-PCS; 2021-07-20)
PROC: 5A09357 Assistance with Respiratory Ventilation, Less than 24 Consecutive Hours, Continuous Positive Airway Pressure (ICD-10-PCS; 2021-07-21)
PROC: 5A09357 Assistance with Respiratory Ventilation, Less than 24 Consecutive Hours, Continuous Positive Airway Pressure (ICD-10-PCS; 2021-07-22)
DX: I13.0 Hypertensive heart and chronic kidney disease with heart failure and stage 1 through stage 4 chronic kidney disease, or unspecified chronic kidney disease (principal); J96.21 Acute and chronic respiratory failure with hypoxia; I21.A1 Myocardial infarction type 2; J96.22 Acute and chronic respiratory failure with hypercapnia; I50.43 Acute on chronic combined systolic (congestive) and diastolic (congestive) heart failure; G93.41 Metabolic encephalopathy; E43 Unspecified severe protein-calorie malnutrition; N17.9 Acute kidney failure, unspecified; N18.4 Chronic kidney disease, stage 4 (severe); E87.2 Acidosis; N39.0 Urinary tract infection, site not specified; J98.11 Atelectasis; N25.81 Secondary hyperparathyroidism of renal origin; E66.2 Morbid (severe) obesity with alveolar hypoventilation; J91.8 Pleural effusion in other conditions classified elsewhere; Z68.43 Body mass index [BMI] 50.0-59.9, adult; R62.7 Adult failure to thrive; E87.5 Hyperkalemia; E78.5 Hyperlipidemia, unspecified; B96.20 Unspecified Escherichia coli [E. coli] as the cause of diseases classified elsewhere; D63.8 Anemia in other chronic diseases classified elsewhere; I50.82 Biventricular heart failure; E03.9 Hypothyroidism, unspecified; L89.152 Pressure ulcer of sacral region, stage 2; E83.52 Hypercalcemia; R32 Unspecified urinary incontinence; I27.20 Pulmonary hypertension, unspecified; J44.9 Chronic obstructive pulmonary disease, unspecified; Z20.822 Contact with and (suspected) exposure to COVID-19; I87.2 Venous insufficiency (chronic) (peripheral); G43.909 Migraine, unspecified, not intractable, without status migrainosus; G89.29 Other chronic pain; M54.9 Dorsalgia, unspecified; E11.22 Type 2 diabetes mellitus with diabetic chronic kidney disease; Z79.4 Long term (current) use of insulin; Z75.1 Person awaiting admission to adequate facility elsewhere; Z88.0 Allergy status to penicillin; Z88.8 Allergy status to other drugs, medicaments and biological substances
CPT/HCPCS: 36415; 36600; 71045; 71250; 71275; 74176; 76604; 76775; 76942; 80048; 80053; 80061; 80307; 81001; 82088; 82270; 82306; 82550; 82570; 82784; 82805; 82962; 83036; 83540; 83550; 83605; 83735; 83880; 83883; 83930; 83935; 83970; 84100; 84132; 84133; 84156; 84244; 84300; 84443; 84484; 85007; 85014; 85018; 85025; 85027; 85049; 85379; 85610; 85730; 86334; 86850; 86900; 86901; 86920; 87081; 87086; 87088; 87186; 87205; 87426; 89051; 93005; 93306; 93970; 94640; 94644; 94660; 94760; 94762; 96365; 96372; 96375; 97110; 97116; 97530; C9113; G0378; J1815; J2405; J3490; P9047; Q9967

== ENCOUNTER 2023-04-29 10:20 | Inpatient (IN) | payer OTHER ==
[~2023-04-29] VITALS: Ht 170.2 cm; Wt 170.0 kg
[~2023-04-29 10:20] MED LIST changes: +ALBUAER3 IN; +ASCO500T11 PO; +ASPI-378 PO; +FURO1TAB31 PO; +GABA-1308 PO; -GABA100C9 PO; +INSLANTI SC; +MET25T PO; +SUCR1TAB22 PO
[2023-04-29 12:35] LABS: Urine Bacteria FEW /hpf (None Seen); Urine Blood 1+ /uL (Negative); Urine Mucus FEW (None Seen); Urine Specific Gravity 1.015 (1.001-1.035); Urine WBC 365 /hpf (0 - 5); Urine WBC Clumps PRESENT /hpf (None Seen)
[2023-04-29 12:42] LABS: Basophils # (auto) 0.1 10 ^3/uL (0-0.2); Basophils % (auto) 0.7 % (0.0-2.0); Eosinophils # (auto) 0.2 10 ^3/uL (0-0.8); Hematocrit 41.9 % (36.0-46.0); Hemoglobin 13.6 g/dL (12.2-16.2); Lymphocytes # (auto) 1.7 10 ^3/uL (0.4-5.4); Lymphocytes % (auto) 20.2 % (10.0-50.0); Mean Corpuscular Hemoglobin 29.7 pg (28.0-32.0); Mean Corpuscular Hgb Conc. 32.4 g/dL (32.0-36.0); Mean Corpuscular Volume 91.5 fL (80.0-100.0); Monocytes # (auto) 0.6 10 ^3/uL (0-1.3); Monocytes % (auto) 6.7 % (0.0-12.0); Neutrophils # (auto) 5.8 10 ^3/uL (1.6-8.6); Neutrophils % (auto) 70.4 % (37.0-80.0); Nucleated Red Blood Cells % 0.1 %; Red Blood Cells 4.58 10^6/uL (4.0-5.20); Red Cell Distribution Width 13.9 % (11.8-14.3); White Blood Cell 8.2 10^3/uL (4.4-10.8)
[2023-04-29] MEDS ORDERED: cefTRIAXone 1GM/50ML D5W 50 ML IV ONE (13:00)
[2023-04-29 13:01] LABS: Albumin 2.9 g/dL (3.4-5.0); Calcium 9.3 mg/dL (8.5-10.1); Potassium 4.1 mmol/L (3.5-5.1)
[2023-04-29 13:05] LABS: BUN/Creatinine Ratio 24.5 (10.0-20.0); Bilirubin, Total 0.3 mg/dL (0.2-1.0); Total Protein 7.1 g/dL (6.4-8.2)
[2023-04-29] MEDS ORDERED: SODIUM CHLORIDE 0.9% 1,000 ML IV SCH (14:15)
[2023-04-29] MEDS ORDERED: DEXTROSE (50%) 50ML SYRG IV PRN (14:15)
[2023-04-29] MEDS ORDERED: ALBUTEROL SULF 2.5 MG/0.5ML(0.5%) NEB SOLN NEB PRN (14:30)
[2023-04-29] MEDS ORDERED: IPRATROPIUM BROM 0.5 MG/2.5ML INH SOL NEB PRN (14:30)
[2023-04-29] MEDS ORDERED: SODIUM CHLORIDE 0.9% 1,000 ML IV ONE (14:30)
[2023-04-29 15:28] VITALS: BP 166/78
[2023-04-29] MEDS: ACCU-CHEK COMFORT CURVE STRIP VI SCH ×2 (17:04→23:12)
[2023-04-29] MEDS: SUCRALFATE 1 GM TAB PO SCH ×2 (17:04→23:37)
[2023-04-29] MEDS: InsuLIN REG 1unit/0.01ml Soln (100units/ml) SC SCH ×2 (17:05→23:23)
[2023-04-29] MEDS: GABAPENTIN 100 MG CAP PO SCH (23:38)
[2023-04-29] MEDS: METOPROLOL TARTRATE 25 MG TAB PO SCH (23:38)
[2023-04-30] MEDS: ACCU-CHEK COMFORT CURVE STRIP VI SCH ×4 (06:55→21:54)
[2023-04-30] MEDS: GABAPENTIN 100 MG CAP PO SCH ×3 (06:56→21:47)
[2023-04-30] MEDS: InsuLIN REG 1unit/0.01ml Soln (100units/ml) SC SCH ×4 (06:56→21:46)
[2023-04-30] MEDS: SUCRALFATE 1 GM TAB PO SCH ×4 (06:56→21:47)
[2023-04-30 08:06] LABS: Basophils # (auto) 0 10 ^3/uL (0-0.2); Basophils % (auto) 0.6 % (0.0-2.0); Eosinophils # (auto) 0.1 10 ^3/uL (0-0.8); Eosinophils % (auto) 1.9 % (0.0-7.0); Hematocrit 39.5 % (36.0-46.0); Lymphocytes # (auto) 1.9 10 ^3/uL (0.4-5.4); Lymphocytes % (auto) 25.7 % (10.0-50.0); Mean Corpuscular Hemoglobin 30.1 pg (28.0-32.0); Mean Corpuscular Hgb Conc. 32.9 g/dL (32.0-36.0); Mean Corpuscular Volume 91.5 fL (80.0-100.0); Monocytes # (auto) 0.8 10 ^3/uL (0-1.3); Monocytes % (auto) 10.3 % (0.0-12.0); Neutrophils # (auto) 4.6 10 ^3/uL (1.6-8.6); Neutrophils % (auto) 61.5 % (37.0-80.0); Nucleated Red Blood Cells % 0.1 %; Red Blood Cells 4.32 10^6/uL (4.0-5.20); Red Cell Distribution Width 14.2 % (11.8-14.3); White Blood Cell 7.5 10^3/uL (4.4-10.8)
[2023-04-30 08:07] LABS: Potassium 4.3 mmol/L (3.5-5.1)
[2023-04-30 08:19] LABS: Albumin 2.6 g/dL (3.4-5.0); BUN/Creatinine Ratio 26.2 (10.0-20.0); Bilirubin, Total 0.2 mg/dL (0.2-1.0); Calcium 9.1 mg/dL (8.5-10.1); Total Protein 6.3 g/dL (6.4-8.2)
[2023-04-30] MEDS ORDERED: ASPirin-EC 81 mg tab PO SCH (10:00)
[2023-04-30] MEDS ORDERED: FUROSEMIDE 40 MG TAB PO SCH (10:00)
[2023-04-30] MEDS: cefTRIAXone 1GM/50ML D5W 50 ML IV SCH (10:08)
[2023-04-30] MEDS: METOPROLOL TARTRATE 25 MG TAB PO SCH ×2 (10:09→21:48)
[2023-04-30] MEDS: PANTOPRAZOLE 40 MG TAB PO SCH (10:09)
[2023-04-30] MEDS: ENOXAPARIN SOD 30 MG/0.3 ML SYRINGE SC SCH (10:09)
[2023-04-30] MEDS ORDERED: SIMV10TA20 PO (10:52)
[2023-04-30] MEDS ORDERED: INSREGI (10:52)
[2023-04-30] MEDS ORDERED: [UNRECOGNIZED DRUG - CODE] (10:52)
[2023-04-30] MEDS ORDERED: PANT40T (10:52)
[2023-04-30] MEDS: SODIUM CHLORIDE 0.9% 1,000 ML IV SCH ×2 (12:27→21:15)
[2023-04-30 12:51] VITALS: BP 125/57
[2023-04-30 13:00] LABS: Protein, Urine 402.1 mg/dL (0.0-11.9)
[2023-04-30 17:00] VITALS: BP 119/71
[2023-04-30 20:20] VITALS: BP 115/59
[2023-04-30] MEDS: NYSTATIN TOPICAL POWDER 15GM TOP SCH (21:50)
[2023-04-30 22:00] VITALS: BP 115/59
[2023-05-01 05:00] VITALS: BP 124/78
[2023-05-01] MEDS: SODIUM CHLORIDE 0.9% 1,000 ML IV SCH ×2 (05:00→17:50)
[2023-05-01 06:44] LABS: BUN/Creatinine Ratio 27.6 (10.0-20.0); Calcium 9.1 mg/dL (8.5-10.1); Potassium 4.2 mmol/L (3.5-5.1)
[2023-05-01] MEDS: SUCRALFATE 1 GM TAB PO SCH ×4 (06:50→22:02)
[2023-05-01] MEDS: InsuLIN REG 1unit/0.01ml Soln (100units/ml) SC SCH ×4 (06:50→22:01)
[2023-05-01] MEDS: ACCU-CHEK COMFORT CURVE STRIP VI SCH ×4 (06:50→22:03)
[2023-05-01] MEDS: GABAPENTIN 100 MG CAP PO SCH ×3 (06:50→22:02)
[2023-05-01 09:00] VITALS: BP 157/66
[2023-05-01] MEDS: PANTOPRAZOLE 40 MG TAB PO SCH (09:26)
[2023-05-01] MEDS: cefTRIAXone 1GM/50ML D5W 50 ML IV SCH (09:26)
[2023-05-01] MEDS: METOPROLOL TARTRATE 25 MG TAB PO SCH ×2 (09:27→22:02)
[2023-05-01] MEDS: ENOXAPARIN SOD 30 MG/0.3 ML SYRINGE SC SCH (09:28)
[2023-05-01] MEDS: NYSTATIN TOPICAL POWDER 15GM TOP SCH ×2 (09:29→22:02)
[2023-05-01 13:20] VITALS: BP 141/68
[2023-05-01 17:00] VITALS: BP 138/62
[2023-05-01 20:20] VITALS: BP 132/59
[2023-05-01 22:00] VITALS: BP 132/59
[2023-05-02] MEDS: SODIUM CHLORIDE 0.9% 1,000 ML IV SCH ×2 (03:15→23:15)
[2023-05-02 05:00] VITALS: BP 149/66
[2023-05-02 06:27] LABS: Calcium 8.4 mg/dL (8.5-10.1); Chloride 109 mmol/L (98-107); Potassium 4.3 mmol/L (3.5-5.1); Sodium 139 mmol/L (136-145)
[2023-05-02 06:31] LABS: Anion Gap 7 (5-15); BUN/Creatinine Ratio 30.6 (10.0-20.0); Blood Urea Nitrogen 60 mg/dL (7-18); Carbon Dioxide 23 mmol/L (21-32); GFR African American 33 mL/min; GFR Non-African American 27 mL/min; Glucose 201 mg/dL (74-106)
[2023-05-02] MEDS: InsuLIN REG 1unit/0.01ml Soln (100units/ml) SC SCH ×4 (06:55→21:50)
[2023-05-02] MEDS: GABAPENTIN 100 MG CAP PO SCH (06:57)
[2023-05-02] MEDS: SUCRALFATE 1 GM TAB PO SCH ×4 (06:57→21:32)
[2023-05-02] MEDS: ACCU-CHEK COMFORT CURVE STRIP VI SCH ×4 (06:58→21:48)
[2023-05-02 09:00] VITALS: BP 150/61
[2023-05-02] MEDS: cefTRIAXone 1GM/50ML D5W 50 ML IV SCH (09:33)
[2023-05-02] MEDS: METOPROLOL TARTRATE 25 MG TAB PO SCH ×2 (09:34→21:32)
[2023-05-02] MEDS: ENOXAPARIN SOD 30 MG/0.3 ML SYRINGE SC SCH (09:34)
[2023-05-02] MEDS: PANTOPRAZOLE 40 MG TAB PO SCH (09:34)
[2023-05-02] MEDS: NYSTATIN TOPICAL POWDER 15GM TOP SCH ×2 (09:40→22:00)
[2023-05-02 13:03] VITALS: BP 145/62
[2023-05-02 17:25] VITALS: BP 128/63
[2023-05-02] MEDS: GABAPENTIN 300 MG CAP PO SCH ×2 (18:22→21:32)
[2023-05-02 22:00] VITALS: BP 153/69
[2023-05-03] MEDS: SODIUM CHLORIDE 0.9% 1,000 ML IV SCH ×3 (00:12→19:15)
[2023-05-03 05:00] VITALS: BP 164/65
[2023-05-03] MEDS: GABAPENTIN 300 MG CAP PO SCH ×3 (05:26→21:14)
[2023-05-03] MEDS: SUCRALFATE 1 GM TAB PO SCH ×4 (06:19→21:15)
[2023-05-03] MEDS: ACCU-CHEK COMFORT CURVE STRIP VI SCH ×4 (06:19→21:15)
[2023-05-03 06:24] LABS: BUN/Creatinine Ratio 31.6 (10.0-20.0); Calcium 8.2 mg/dL (8.5-10.1); Potassium 4.2 mmol/L (3.5-5.1)
[2023-05-03] MEDS: InsuLIN REG 1unit/0.01ml Soln (100units/ml) SC SCH ×4 (06:29→21:24)
[2023-05-03 09:00] VITALS: BP 165/75
[2023-05-03] MEDS: ENOXAPARIN SOD 40 MG/0.4 ML SYRINGE SC SCH (09:14)
[2023-05-03] MEDS: cefTRIAXone 1GM/50ML D5W 50 ML IV SCH (09:15)
[2023-05-03] MEDS: METOPROLOL TARTRATE 25 MG TAB PO SCH ×2 (09:16→21:14)
[2023-05-03] MEDS: amLODIPine BESYLATE 5 MG TAB PO SCH (09:17)
[2023-05-03] MEDS: PANTOPRAZOLE 40 MG TAB PO SCH (09:17)
[2023-05-03] MEDS: NYSTATIN TOPICAL POWDER 15GM TOP SCH ×2 (09:18→22:00)
[2023-05-03 13:00] VITALS: BP 163/70
[2023-05-03 17:00] VITALS: BP 113/62
[2023-05-03 22:00] VITALS: BP 140/64
[2023-05-04 05:00] VITALS: BP 154/65
[2023-05-04 05:43] LABS: BUN/Creatinine Ratio 27.4 (10.0-20.0); Calcium 8.4 mg/dL (8.5-10.1); Potassium 4.4 mmol/L (3.5-5.1)
[2023-05-04] MEDS: SODIUM CHLORIDE 0.9% 1,000 ML IV SCH ×2 (05:46→16:18)
[2023-05-04] MEDS: GABAPENTIN 300 MG CAP PO SCH ×3 (05:59→21:32)
[2023-05-04] MEDS: ACCU-CHEK COMFORT CURVE STRIP VI SCH ×4 (06:02→21:33)
[2023-05-04] MEDS: SUCRALFATE 1 GM TAB PO SCH ×3 (06:02→21:33)
[2023-05-04] MEDS: InsuLIN REG 1unit/0.01ml Soln (100units/ml) SC SCH ×4 (06:11→21:44)
[2023-05-04 09:00] VITALS: BP 163/77
[2023-05-04] MEDS: cefTRIAXone 1GM/50ML D5W 50 ML IV SCH (09:11)
[2023-05-04] MEDS: ENOXAPARIN SOD 40 MG/0.4 ML SYRINGE SC SCH (09:12)
[2023-05-04] MEDS: PANTOPRAZOLE 40 MG TAB PO SCH (09:12)
[2023-05-04] MEDS: METOPROLOL TARTRATE 25 MG TAB PO SCH ×2 (09:12→21:32)
[2023-05-04] MEDS: amLODIPine BESYLATE 5 MG TAB PO SCH (09:13)
[2023-05-04] MEDS: NYSTATIN TOPICAL POWDER 15GM TOP SCH (09:14)
[2023-05-04] MEDS ORDERED: amLODIPine BESYLATE 5 MG TAB PO ONE (11:45)
[2023-05-04 13:00] VITALS: BP 151/64
[2023-05-04 17:00] VITALS: BP 123/56
[2023-05-04 22:00] VITALS: BP 138/61
[2023-05-05] MEDS: NYSTATIN TOPICAL POWDER 15GM TOP SCH ×3 (02:37→22:14)
[2023-05-05] MEDS: SODIUM CHLORIDE 0.9% 1,000 ML IV SCH ×3 (02:38→22:15)
[2023-05-05] MEDS: ACCU-CHEK COMFORT CURVE STRIP VI SCH ×4 (06:26→22:13)
[2023-05-05] MEDS: SUCRALFATE 1 GM TAB PO SCH ×4 (06:26→22:12)
[2023-05-05] MEDS: GABAPENTIN 300 MG CAP PO SCH ×3 (06:27→22:12)
[2023-05-05] MEDS: InsuLIN REG 1unit/0.01ml Soln (100units/ml) SC SCH ×4 (06:28→22:33)
[2023-05-05 07:34] LABS: Calcium 8.6 mg/dL (8.5-10.1); Potassium 4.3 mmol/L (3.5-5.1)
[2023-05-05 07:37] LABS: BUN/Creatinine Ratio 28.8 (10.0-20.0)
[2023-05-05 09:00] VITALS: BP 156/69
[2023-05-05] MEDS ORDERED: NYST150P2 XX (09:41)
[2023-05-05] MEDS ORDERED: PANT40TA2 PO (09:41)
[2023-05-05] MEDS ORDERED: ATOR20TA PO (09:41)
[2023-05-05] MEDS ORDERED: SUCR1TAB22 OR (09:41)
[2023-05-05] MEDS ORDERED: AMLO1TAB23 PO (09:41)
[2023-05-05] MEDS ORDERED: METO-6 PO (09:41)
[2023-05-05] MEDS ORDERED: GABA-1250 PO (09:41)
[2023-05-05] MEDS ORDERED: ASPI1TAB20 PO (09:41)
[2023-05-05] MEDS: amLODIPine BESYLATE 5 MG TAB PO SCH (09:44)
[2023-05-05] MEDS: ENOXAPARIN SOD 40 MG/0.4 ML SYRINGE SC SCH (09:45)
[2023-05-05] MEDS: METOPROLOL TARTRATE 25 MG TAB PO SCH ×2 (09:45→22:12)
[2023-05-05] MEDS: PANTOPRAZOLE 40 MG TAB PO SCH (09:45)
[2023-05-05] MEDS: cefTRIAXone 1GM/50ML D5W 50 ML IV SCH (09:45)
[2023-05-05 13:00] VITALS: BP 148/58
[2023-05-05 17:00] VITALS: BP 107/54
[2023-05-05 22:00] VITALS: BP 144/66
[2023-05-06 05:00] VITALS: BP 132/63
[2023-05-06] MEDS: GABAPENTIN 300 MG CAP PO SCH ×3 (06:18→22:28)
[2023-05-06] MEDS: SUCRALFATE 1 GM TAB PO SCH ×4 (06:18→22:27)
[2023-05-06] MEDS: ACCU-CHEK COMFORT CURVE STRIP VI SCH ×4 (06:21→22:28)
[2023-05-06] MEDS: InsuLIN REG 1unit/0.01ml Soln (100units/ml) SC SCH ×4 (06:23→22:30)
[2023-05-06] MEDS: SODIUM CHLORIDE 0.9% 1,000 ML IV SCH (07:15)
[2023-05-06 09:00] VITALS: BP 149/64
[2023-05-06] MEDS: cefTRIAXone 1GM/50ML D5W 50 ML IV SCH (09:04)
[2023-05-06] MEDS: PANTOPRAZOLE 40 MG TAB PO SCH (09:04)
[2023-05-06] MEDS: amLODIPine BESYLATE 5 MG TAB PO SCH (09:05)
[2023-05-06] MEDS: METOPROLOL TARTRATE 25 MG TAB PO SCH ×2 (09:05→22:27)
[2023-05-06] MEDS: NYSTATIN TOPICAL POWDER 15GM TOP SCH ×2 (09:06→22:32)
[2023-05-06] MEDS: ENOXAPARIN SOD 40 MG/0.4 ML SYRINGE SC SCH (09:06)
[2023-05-06 13:00] VITALS: BP 144/61
[2023-05-06 17:00] VITALS: BP 113/53
[2023-05-06 22:00] VITALS: BP 126/45
[2023-05-07 05:23] VITALS: BP 134/52
[2023-05-07 06:22] LABS: Potassium 4.6 mmol/L (3.5-5.1)
[2023-05-07 06:26] LABS: BUN/Creatinine Ratio 26.2 (10.0-20.0); Calcium 8.8 mg/dL (8.5-10.1)
[2023-05-07] MEDS: SUCRALFATE 1 GM TAB PO SCH ×4 (06:26→22:30)
[2023-05-07] MEDS: GABAPENTIN 300 MG CAP PO SCH ×3 (06:26→22:30)
[2023-05-07] MEDS: InsuLIN REG 1unit/0.01ml Soln (100units/ml) SC SCH ×4 (06:27→22:26)
[2023-05-07] MEDS: ACCU-CHEK COMFORT CURVE STRIP VI SCH ×4 (06:27→22:18)
[2023-05-07 09:00] VITALS: BP 118/59
[2023-05-07] MEDS: METOPROLOL TARTRATE 25 MG TAB PO SCH ×2 (09:15→22:30)
[2023-05-07] MEDS: PANTOPRAZOLE 40 MG TAB PO SCH (09:16)
[2023-05-07] MEDS: amLODIPine BESYLATE 5 MG TAB PO SCH (09:16)
[2023-05-07] MEDS: ENOXAPARIN SOD 40 MG/0.4 ML SYRINGE SC SCH (09:17)
[2023-05-07] MEDS: cefTRIAXone 1GM/50ML D5W 50 ML IV SCH (09:17)
[2023-05-07] MEDS: NYSTATIN TOPICAL POWDER 15GM TOP SCH ×2 (10:00→22:35)
[2023-05-07] MEDS ORDERED: LISINOPRIL 5 MG TAB PO ONE (10:15)
[2023-05-07 13:00] VITALS: BP 125/84
[2023-05-07 17:00] VITALS: BP 128/52
[2023-05-07 20:00] VITALS: BP 153/60
[2023-05-07 22:00] VITALS: BP 153/60
[2023-05-08] VITALS (7 sets, daily range): BP systolic 113–136; BP diastolic 42–60
[2023-05-08] MEDS: GABAPENTIN 300 MG CAP PO SCH ×3 (06:19→23:08)
[2023-05-08] MEDS: SUCRALFATE 1 GM TAB PO SCH ×4 (06:23→23:09)
[2023-05-08] MEDS: InsuLIN REG 1unit/0.01ml Soln (100units/ml) SC SCH ×4 (06:25→22:45)
[2023-05-08] MEDS: ACCU-CHEK COMFORT CURVE STRIP VI SCH ×4 (06:25→22:45)
[2023-05-08] MEDS: ENOXAPARIN SOD 40 MG/0.4 ML SYRINGE SC SCH (10:00)
[2023-05-08] MEDS ORDERED: LISINOPRIL 5 MG TAB PO SCH (10:00)
[2023-05-08] MEDS: PANTOPRAZOLE 40 MG TAB PO SCH (10:04)
[2023-05-08] MEDS: METOPROLOL TARTRATE 25 MG TAB PO SCH ×2 (10:04→23:09)
[2023-05-08] MEDS: amLODIPine BESYLATE 5 MG TAB PO SCH (10:05)
[2023-05-08] MEDS: NYSTATIN TOPICAL POWDER 15GM TOP SCH ×2 (10:08→23:09)
[2023-05-08] MEDS ORDERED: DEXTROSE (50%) 50ML SYRG IV PRN (11:00)
[2023-05-09 00:34] LABS: Urine Bacteria FEW /hpf (None Seen); Urine Blood Negative /uL (Negative); Urine Budding Yeast LOADED /hpf (None Seen); Urine Hyaline Cast MOD /lpf (0 - 2); Urine Mucus FEW (None Seen); Urine WBC 133 /hpf (0 - 5); Urine WBC Clumps PRESENT /hpf (None Seen)
[2023-05-09 05:00] VITALS: BP 114/50
[2023-05-09 06:33] LABS: BUN/Creatinine Ratio 29.5 (10.0-20.0); Calcium 8.6 mg/dL (8.5-10.1); Potassium 4.9 mmol/L (3.5-5.1)
[2023-05-09] MEDS: GABAPENTIN 300 MG CAP PO SCH ×3 (06:41→23:11)
[2023-05-09] MEDS: SUCRALFATE 1 GM TAB PO SCH ×4 (06:41→23:10)
[2023-05-09] MEDS: ACCU-CHEK COMFORT CURVE STRIP VI SCH ×4 (06:42→22:00)
[2023-05-09] MEDS: InsuLIN REG 1unit/0.01ml Soln (100units/ml) SC SCH ×4 (06:43→23:12)
[2023-05-09 06:50] LABS: Basophils # (auto) 0.1 10 ^3/uL (0-0.2); Basophils % (auto) 0.9 % (0.0-2.0); Eosinophils # (auto) 0.2 10 ^3/uL (0-0.8); Eosinophils % (auto) 2.7 % (0.0-7.0); Hematocrit 36.1 % (36.0-46.0); Hemoglobin 11.9 g/dL (12.2-16.2); Lymphocytes # (auto) 2.1 10 ^3/uL (0.4-5.4); Lymphocytes % (auto) 24.3 % (10.0-50.0); Monocytes # (auto) 0.7 10 ^3/uL (0-1.3); Neutrophils # (auto) 5.6 10 ^3/uL (1.6-8.6); Neutrophils % (auto) 64.1 % (37.0-80.0); Nucleated Red Blood Cells % 0.1 %; Red Blood Cells 3.97 10^6/uL (4.0-5.20); Red Cell Distribution Width 13.2 % (11.8-14.3); White Blood Cell 8.8 10^3/uL (4.4-10.8)
[2023-05-09 08:00] VITALS: BP 116/56
[2023-05-09] MEDS: ENOXAPARIN SOD 40 MG/0.4 ML SYRINGE SC SCH (10:02)
[2023-05-09] MEDS: PANTOPRAZOLE 40 MG TAB PO SCH (10:02)
[2023-05-09] MEDS: NYSTATIN TOPICAL POWDER 15GM TOP SCH ×2 (10:05→22:00)
[2023-05-09] MEDS ORDERED: ERTAPENEM SOD INJ 1 GM in SODIUM CHL 0.9% 50 ML IV ONE (11:15)
[2023-05-09 12:00] VITALS: BP 147/61
[2023-05-09] MEDS: amLODIPine BESYLATE 5 MG TAB PO SCH (12:18)
[2023-05-09] MEDS: METOPROLOL TARTRATE 25 MG TAB PO SCH ×2 (12:19→23:11)
[2023-05-09 16:00] VITALS: BP 126/53
[2023-05-09 20:00] VITALS: BP 129/54
[2023-05-09 22:00] VITALS: BP 129/54
[2023-05-10 05:00] VITALS: BP 136/59
[2023-05-10] MEDS: GABAPENTIN 300 MG CAP PO SCH ×2 (06:39→12:50)
[2023-05-10] MEDS: SUCRALFATE 1 GM TAB PO SCH ×3 (06:39→17:36)
[2023-05-10] MEDS: ACCU-CHEK COMFORT CURVE STRIP VI SCH ×3 (06:41→17:40)
[2023-05-10] MEDS: InsuLIN REG 1unit/0.01ml Soln (100units/ml) SC SCH ×3 (06:42→17:00)
[2023-05-10 08:00] VITALS: BP 143/62
[2023-05-10] MEDS: METOPROLOL TARTRATE 25 MG TAB PO SCH (08:32)
[2023-05-10] MEDS: PANTOPRAZOLE 40 MG TAB PO SCH (08:32)
[2023-05-10] MEDS: amLODIPine BESYLATE 5 MG TAB PO SCH (08:33)
[2023-05-10] MEDS: NYSTATIN TOPICAL POWDER 15GM TOP SCH (08:37)
[2023-05-10] MEDS: ENOXAPARIN SOD 40 MG/0.4 ML SYRINGE SC SCH (08:46)
[2023-05-10 09:49] VITALS: BP 143/62
[2023-05-10 09:53] VITALS: BP 143/62
[2023-05-10] MEDS ORDERED: ERTAPENEM SOD INJ 1 GM in SODIUM CHL 0.9% 50 ML IV SCH (10:00)
[2023-05-10 14:03] VITALS: BP 133/58
[2023-05-10 17:23] VITALS: BP 131/63
== END 2023-05-10 18:46 | disposition home health service (06) | DRG 640 ==
LOC: ER 10:20 → EDBD 10:20 → OVERFLOW 14:14 → CENTRAL 04-30 08:49
PROVIDERS: ADMIT Nurse Practitioner Family; ATTEND Internal Medicine
DX: R62.7 Adult failure to thrive (principal); N17.0 Acute kidney failure with tubular necrosis; N13.6 Pyonephrosis; E44.0 Moderate protein-calorie malnutrition; Z68.42 Body mass index [BMI] 45.0-49.9, adult; I13.0 Hypertensive heart and chronic kidney disease with heart failure and stage 1 through stage 4 chronic kidney disease, or unspecified chronic kidney disease; I50.32 Chronic diastolic (congestive) heart failure; N18.4 Chronic kidney disease, stage 4 (severe); E86.0 Dehydration; E78.5 Hyperlipidemia, unspecified; E11.22 Type 2 diabetes mellitus with diabetic chronic kidney disease; E66.01 Morbid (severe) obesity due to excess calories; J45.909 Unspecified asthma, uncomplicated; Z74.01 Bed confinement status; Z88.0 Allergy status to penicillin; Z88.6 Allergy status to analgesic agent; Z91.018 Allergy to other foods; Z99.3 Dependence on wheelchair; D64.9 Anemia, unspecified; Z83.3 Family history of diabetes mellitus; Z71.3 Dietary counseling and surveillance
CPT/HCPCS: 36415; 76775; 80048; 80053; 80061; 81001; 82306; 82570; 82962; 83036; 83970; 84100; 84156; 84300; 84443; 85025; 87086; 96365; 97110; 97163; 97530; G0378; J0696; J1335; J1815

== ENCOUNTER 2024-01-08 16:47 | Inpatient (IN) | payer OTHER ==
[~2024-01-08] VITALS: Ht 170.2 cm; Wt 170.0 kg
[~2024-01-08 16:47] MED LIST changes: -ACET-285 PO; -ALBUAER3 IN; +AMLO1TAB23 PO; -ASCO500T11 PO; -ASPI-378 PO; +ASPI1TAB20 PO; +ATOR20TA PO; -FURO1TAB31 PO; +GABA-1250 PO; -GABA-1308 PO; -INSLANTI SC; -MET25T PO; +METO-6 PO; +NYST150P2 XX; +PANT40TA2 PO; +SUCR1TAB22 OR; -SUCR1TAB22 PO; +[UNRECOGNIZED DRUG - CODE]
[2024-01-08 18:21] LABS: Eosinophils # (auto) 0.2 10 ^3/uL (0-0.8); Hemoglobin 12.6 g/dL (12.2-16.2); Lymphocytes # (auto) 1.1 10 ^3/uL (0.4-5.4)
[2024-01-08 18:22] LABS: Basophils # (auto) 0 10 ^3/uL (0-0.2); Basophils % (auto) 0.6 % (0.0-2.0); Eosinophils % (auto) 2.4 % (0.0-7.0); Hematocrit 41.4 % (36.0-46.0); Lymphocytes % (auto) 14.8 % (10.0-50.0); Mean Corpuscular Hemoglobin 31.3 pg (28.0-32.0); Mean Corpuscular Hgb Conc. 30.5 g/dL (32.0-36.0); Mean Corpuscular Volume 102.6 fL (80.0-100.0); Monocytes # (auto) 0.7 10 ^3/uL (0-1.3); Monocytes % (auto) 9.1 % (0.0-12.0); Neutrophils # (auto) 5.4 10 ^3/uL (1.6-8.6); Neutrophils % (auto) 73.1 % (37.0-80.0); Nucleated Red Blood Cells % 0.5 %; Red Blood Cells 4.04 10^6/uL (4.0-5.20); Red Cell Distribution Width 17.6 % (11.8-14.3); White Blood Cell 7.3 10^3/uL (4.4-10.8)
[2024-01-08 18:31] LABS: Alkaline Phosphatase 111 U/L (46-116); Anion Gap 4 (5-15); Aspartate Aminotransferase 10 U/L (13-40); Blood Urea Nitrogen 73 mg/dL (9-23); Calcium 7.8 mg/dL (8.7-10.4); Carbon Dioxide 24 mmol/L (20-30); Chloride 109 mmol/L (98-107); Glucose 102 mg/dL (74-106); Magnesium 2.4 mg/dL (1.6-2.6); Sodium 137 mmol/L (136-145)
[2024-01-08 18:32] LABS: Bilirubin, Total 0.3 mg/dL (0.2-1.0); Total Protein 5.3 g/dL (5.7-8.2)
[2024-01-08 19:08] LABS: Alanine Aminotransferase < 9 U/L (7-40)
[2024-01-08 19:09] LABS: Potassium 7.1 mmol/L (3.5-5.1)
[2024-01-08 20:00] VITALS: PULSE 94; RESP 73; O2SAT 97
[2024-01-08] MEDS ORDERED: PIPERACILLIN-TAZOB 3.375GM 100 ML IV ONE (20:30)
[2024-01-08] MEDS: CALCIUM GLUC 1,000mg/50ml-NS 50 ML IV ONE (20:54)
[2024-01-08] MEDS: SODIUM ZIRCONIUM CYCL 10 GM PAK PO ONE (20:56)
[2024-01-08] MEDS: DEXTROSE (50%) 50ML SYRG IV ONE (20:57)
[2024-01-08] MEDS: FUROSEMIDE 40 MG/4 ML VIAL IV ONE (20:57)
[2024-01-08] MEDS: SODIUM BICARB 8.4% 50Meq/50ml SYR INJ IV ONE (20:57)
[2024-01-08] MEDS: ALBUTEROL SULF 2.5 MG/0.5ML(0.5%) NEB SOLN NEB ONE (21:03)
[2024-01-08] MEDS: InsuLIN REG 1unit/0.01ml Soln (100units/ml) IV ONE (21:19)
[2024-01-08] MEDS ORDERED: NITROGLYCERIN 0.4 MG SL TAB SL PRN (21:45)
[2024-01-08] MEDS ORDERED: ACETAMINOPHEN 325 MG TAB PO PRN (21:45)
[2024-01-08] MEDS ORDERED: SODIUM CHLORIDE 0.9% 1,000 ML IV SCH ×2 (21:45)
[2024-01-08] MEDS: SODIUM CHLORIDE 0.9% 1,000 ML IV ONE (21:45)
[2024-01-08] MEDS ORDERED: DOCUSATE SOD 100 MG CAP PO PRN (21:45)
[2024-01-08] MEDS ORDERED: MORPHINE SULFATE INJ 2 MG/ml SYRG IV PRN (21:45)
[2024-01-08] MEDS ORDERED: HYDROcodone-ACET 5/325MG TAB PO PRN (21:45)
[2024-01-08] MEDS ORDERED: ONDANSETRON HCL 4 MG/2 ML VIAL IV PRN (21:45)
[2024-01-08 21:53] LABS: Urine Bacteria MOD /hpf (None Seen); Urine Blood 1+ /uL (Negative); Urine Clarity CLOUDY (Clear); Urine Color Yellow (Yellow); Urine Protein, UAD 2+ (Negative); Urine Specific Gravity 1.016 (1.001-1.035); Urine Urobilinogen Normal (Negative); Urine WBC 910 /hpf (0 - 5); Urine WBC Clumps PRESENT /hpf (None Seen)
[2024-01-08] MEDS ORDERED: DEXTROSE (50%) 50ML SYRG IV PRN (22:30)
[2024-01-08] MEDS ORDERED: NITROFURANTOIN 100 mg CAP PO ONE (23:15)
[2024-01-08] MEDS ORDERED: levoFLOXacin 250MG 50 ML IV SCH (23:15)
[2024-01-09] MEDS: levoFLOXacin 250 MG TAB PO ONE (01:07)
[2024-01-09] MEDS: PHENYLEPHRINE IV 250 ML IV SCH (06:00)
[2024-01-09 06:02] LABS: Basophils # (auto) 0 10 ^3/uL (0-0.2); Eosinophils # (auto) 0 10 ^3/uL (0-0.8); Monocytes # (auto) 0.7 10 ^3/uL (0-1.3); Red Cell Distribution Width 17.5 % (11.8-14.3)
[2024-01-09] MEDS: SUCRALFATE 1 GM TAB PO SCH (06:04)
[2024-01-09 06:06] LABS: Basophils % (auto) 0.4 % (0.0-2.0); Eosinophils % (auto) 0.4 % (0.0-7.0); Hematocrit 36.9 % (36.0-46.0); Hemoglobin 11.4 g/dL (12.2-16.2); Lymphocytes # (auto) 0.9 10 ^3/uL (0.4-5.4); Lymphocytes % (auto) 12.2 % (10.0-50.0); Mean Corpuscular Hemoglobin 31.6 pg (28.0-32.0); Mean Corpuscular Hgb Conc. 30.9 g/dL (32.0-36.0); Mean Corpuscular Volume 102.2 fL (80.0-100.0); Monocytes % (auto) 8.6 % (0.0-12.0); Neutrophils % (auto) 78.4 % (37.0-80.0); Nucleated Red Blood Cells % 0.4 %; Red Blood Cells 3.61 10^6/uL (4.0-5.20); White Blood Cell 7.7 10^3/uL (4.4-10.8)
[2024-01-09 06:24] LABS: Albumin 2.8 g/dL (3.2-4.8); Alkaline Phosphatase 94 U/L (46-116); Anion Gap 7 (5-15); Aspartate Aminotransferase 14 U/L (13-40); BUN/Creatinine Ratio 22.5 (10.0-20.0); Bilirubin, Total 0.3 mg/dL (0.2-1.0); Calcium 8.4 mg/dL (8.5-10.1); Carbon Dioxide 23 mmol/L (20-30); Chloride 109 mmol/L (98-107); Glucose 65 mg/dL (74-106); Sodium 139 mmol/L (136-145); Total Protein 5.1 g/dL (5.7-8.2)
[2024-01-09 06:34] LABS: Alanine Aminotransferase < 9 U/L (7-40); Blood Urea Nitrogen 61 mg/dL (9-23)
[2024-01-09] MEDS: ACCU-CHEK COMFORT CURVE STRIP VI SCH (06:56)
[2024-01-09] MEDS: InsuLIN REG 1unit/0.01ml Soln (100units/ml) SC SCH ×2 (06:57→22:00)
[2024-01-09] MEDS: SODIUM ZIRCONIUM CYCL 10 GM PAK PO ONE ×2 (07:26→12:12)
[2024-01-09] MEDS: DEXTROSE (50%) 50ML SYRG IV ONE ×2 (07:27→12:12)
[2024-01-09] MEDS: SODIUM BICARB 8.4% 50Meq/50ml SYR INJ IV ONE ×2 (07:27→12:12)
[2024-01-09] MEDS: FUROSEMIDE 40 MG/4 ML VIAL IV ONE ×2 (07:27→13:50)
[2024-01-09] MEDS: PANTOPRAZOLE 40 MG TAB PO SCH (07:28)
[2024-01-09] MEDS: GABAPENTIN 300 MG CAP PO SCH (07:28)
[2024-01-09] MEDS: InsuLIN REG 1unit/0.01ml Soln (100units/ml) IV ONE ×2 (07:28→12:13)
[2024-01-09] MEDS: ASPirin-EC 81 mg tab PO SCH (07:29)
[2024-01-09] MEDS: amLODIPine BESYLATE 5 MG TAB PO SCH (07:30)
[2024-01-09] MEDS: METOPROLOL SUCCINATE XL 50 MG TAB PO SCH (07:30)
[2024-01-09 07:32] LABS: COVID19 ANTIGEN SOFIA FIA NEGATIVE (NEGATIVE)
[2024-01-09] MEDS: CALCIUM CHL 100MG/ML 1,000 MG in D5W 5% 100 ML IV ONE (07:35)
[2024-01-09] MEDS ORDERED: guaiFENesin-CODEINE Liq 5 ML UD PO PRN (08:15)
[2024-01-09] MEDS ORDERED: guaiFENesin-DM 100/10mg/5ml SYR PO PRN (08:30)
[2024-01-09 08:33] VITALS: PULSE 71; RESP 20; O2SAT 97
[2024-01-09] MEDS: guaiFENesin-DM 100/10mg/5ml SYR PO PRN (08:43)
[2024-01-09] MEDS ORDERED: levoFLOXacin 250MG 50 ML IV SCH (09:30)
[2024-01-09] MEDS: CALCIUM GLUC 1,000mg/50ml-NS 50 ML IV ONE (12:20)
[2024-01-09] MEDS: FUROSEMIDE 20 MG/2 ML VIAL IV ONE (12:21)
[2024-01-09] MEDS: ALBUTEROL SULF 2.5 MG/0.5ML(0.5%) NEB SOLN NEB ONE (12:23)
[2024-01-09 12:36] LABS: INR 1.12 (0.9-1.15); Partial Thromboplastin Time 30.5 SEC (24.5-34.5); Prothrombin Time 11.7 sec (9.3-11.8)
[2024-01-09 12:39] LABS: Creatinine, Urine 17.5 mg/dL (30.0-125.0); Creatinine, Urine 17.71 mg/dL (30.0-125.0); Protein, Urine 54.6 mg/dL (0.0-11.9); Urine Protein/Creatinine Ratio 3.12
[2024-01-09] MEDS ORDERED: NOREPINEPHRINE 8 MG/250ML KIT 250 ML IV SCH (12:45)
[2024-01-09] MEDS: levoFLOXacin 500MG 100 ML IV SCH (12:47)
[2024-01-09] MEDS: FUROSEMIDE 100 MG/10ML VIAL IV ONE (12:49)
[2024-01-09] MEDS: SODIUM ZIRCONIUM CYCL 10 GM PAK PO SCH (13:32)
[2024-01-09] MEDS ORDERED: FUROSEMIDE 40 MG/4 ML VIAL IV SCH (14:00)
[2024-01-09 14:30] LABS: Base Excess -5.6 mmol/L (-2.0-2.0)
[2024-01-09] MEDS: NOREPINEPHRINE 8 MG/250ML KIT 250 ML IV ONE (16:18)
[2024-01-09] MEDS: NOREPINEPHRINE 8 MG/250ML KIT 250 ML IV SCH (16:18)
[2024-01-09] MEDS ORDERED: VANCOMYCIN PER PHARMACY 0 MG IV SCH (16:45)
[2024-01-09] MEDS: VANCOMYCIN 1GM/200ML 200 ML IV ONE (17:11)
[2024-01-09] MEDS: FUROSEMIDE 100 MG/10ML VIAL IV SCH (17:12)
[2024-01-09] MEDS: VANCOMYCIN 500 MG in D5W 5% 100 ML IV ONE (19:24)
[2024-01-09 19:30] VITALS: PULSE 85; RESP 10; O2SAT 97
[2024-01-09] MEDS: ATORVASTATIN 20 MG TAB PO SCH (22:10)
[2024-01-10] VITALS (9 sets, daily range): BP systolic 108–145; BP diastolic 40–72; PULSE 80–94; RESP 11–22; O2SAT 92–95
[2024-01-10 06:47] LABS: Base Excess -2.9 mmol/L (-2.0-2.0)
[2024-01-10 07:33] LABS: Red Cell Distribution Width 17.9 % (11.8-14.3)
[2024-01-10 07:35] LABS: Hematocrit 40.4 % (36.0-46.0); Hemoglobin 12.4 g/dL (12.2-16.2); Mean Corpuscular Hemoglobin 31.3 pg (28.0-32.0); Mean Corpuscular Hgb Conc. 30.6 g/dL (32.0-36.0); Mean Corpuscular Volume 102.2 fL (80.0-100.0); Red Blood Cells 3.95 10^6/uL (4.0-5.20); White Blood Cell 9.6 10^3/uL (4.4-10.8)
[2024-01-10 07:42] LABS: Band Neutrophils % (manual) 0; Basophils % (manual) 0 (0.0-2.0); Blast Cells 0; Eosinophils % (manual) 0 (0-7); Metamyelocytes % 0; Myelocytes % 0; Promyelocytes % 0; Reactive Lymphocytes 0
[2024-01-10 07:52] LABS: Albumin 3.1 g/dL (3.2-4.8); Alkaline Phosphatase 96 U/L (46-116); Anion Gap 8 (5-15); Aspartate Aminotransferase 21 U/L (13-40); BUN/Creatinine Ratio 19.8 (10.0-20.0); Bilirubin, Total 0.3 mg/dL (0.2-1.0); Blood Urea Nitrogen 52 mg/dL (9-23); Calcium 8.8 mg/dL (8.5-10.1); Carbon Dioxide 26 mmol/L (20-30); Chloride 106 mmol/L (98-107); Glucose 91 mg/dL (74-106); Potassium 4.6 mmol/L (3.5-5.1); Sodium 140 mmol/L (136-145); Total Protein 5.6 g/dL (5.7-8.2)
[2024-01-10 07:54] LABS: Alanine Aminotransferase < 9 U/L (7-40)
[2024-01-10 08:26] LABS: Lymphocytes % (manual) 7 (10.0-50.0); Monocytes % (manual) 8 (0-12)
[2024-01-10 08:28] LABS: Anisocytosis Slight; Hypochromia Slight; Macrocytosis Slight; Platelet Estimate Adequate
[2024-01-10] MEDS: LIDOCAINE 1% (LOCAL ANESTH.) PF 5ml SDV ID ONE (12:00)
[2024-01-10] MEDS: VANCOMYCIN 1GM/200ML 200 ML IV ONE (12:06)
[2024-01-10] MEDS: CALCIUM ACETATE 667 MG CAP PO SCH (12:35)
[2024-01-10] MEDS: LIDOCAINE 2%HCL (LOCAL ANESTH.) INJ 10ml MDV ONE (17:37)
[2024-01-10] MEDS: SODIUM CHLOR 0.9% PF (SALINE LOCK) 10ML VIAL/SYR IV SCH (21:48)
[2024-01-10 23:49] LABS: Base Excess -3.6 mmol/L (-2.0-2.0)
[2024-01-11] VITALS (17 sets, daily range): BP systolic 101–139; BP diastolic 37–69; PULSE 67–85; RESP 11–21; TEMP 97.8–98.1; O2SAT 93–98
[2024-01-11] MEDS: ALBUMIN 25% 100 ML IV ONE (00:40)
[2024-01-11 06:29] LABS: Base Excess -3.8 mmol/L (-2.0-2.0)
[2024-01-11 07:00] LABS: Basophils # (auto) 0 10 ^3/uL (0-0.2); Eosinophils # (auto) 0.1 10 ^3/uL (0-0.8); Hemoglobin 10.4 g/dL (12.2-16.2); Monocytes # (auto) 0.7 10 ^3/uL (0-1.3); Nucleated Red Blood Cells % 0.2 %
[2024-01-11 07:01] LABS: Basophils % (auto) 0.4 % (0.0-2.0); Eosinophils % (auto) 1.7 % (0.0-7.0); Hematocrit 34.7 % (36.0-46.0); Lymphocytes % (auto) 16.6 % (10.0-50.0); Mean Corpuscular Hemoglobin 30.7 pg (28.0-32.0); Mean Corpuscular Volume 102.2 fL (80.0-100.0); Monocytes % (auto) 11.1 % (0.0-12.0); Neutrophils # (auto) 4.3 10 ^3/uL (1.6-8.6); Neutrophils % (auto) 70.2 % (37.0-80.0); Red Blood Cells 3.39 10^6/uL (4.0-5.20); Red Cell Distribution Width 17.3 % (11.8-14.3); White Blood Cell 6.1 10^3/uL (4.4-10.8)
[2024-01-11 07:02] LABS: Albumin 2.7 g/dL (3.2-4.8); Alkaline Phosphatase 68 U/L (46-116); Anion Gap 8 (5-15); Aspartate Aminotransferase 35 U/L (13-40); BUN/Creatinine Ratio 20.5 (10.0-20.0); Blood Urea Nitrogen 52 mg/dL (9-23); Calcium 8.3 mg/dL (8.5-10.1); Carbon Dioxide 25 mmol/L (20-30); Chloride 108 mmol/L (98-107); Glucose 84 mg/dL (74-106); Potassium 4.3 mmol/L (3.5-5.1); Sodium 141 mmol/L (136-145)
[2024-01-11 07:03] LABS: Bilirubin, Total 0.4 mg/dL (0.2-1.0); Total Protein 4.7 g/dL (5.7-8.2)
[2024-01-11 07:18] LABS: Alanine Aminotransferase < 9 U/L (7-40)
[2024-01-11 08:38] LABS: Base Excess -3.4 mmol/L (-2.0-2.0)
[2024-01-11] MEDS: VANCOMYCIN 1GM/200ML 200 ML IV ONE (11:21)
[2024-01-11] MEDS: CATHFLO ACTIVASE (ALTEPLASE) 2 MG VIAL IV ONE (13:32)
[2024-01-11] MEDS ORDERED: levoFLOXacin 500MG 100 ML IV SCH (14:00)
[2024-01-11] MEDS: levoFLOXacin 500MG 100 ML IV SCH (17:49)
[2024-01-12] VITALS (20 sets, daily range): BP systolic 88–132; BP diastolic 33–53; PULSE 64–82; RESP 9–22; TEMP 96.9–97.8; O2SAT 89–99
[2024-01-12 05:52] LABS: Chloride 107 mmol/L (98-107); Sodium 140 mmol/L (136-145)
[2024-01-12 05:53] LABS: Anion Gap 6 (5-15); Carbon Dioxide 27 mmol/L (20-30)
[2024-01-12 05:54] LABS: Calcium 7.8 mg/dL (8.7-10.4)
[2024-01-12 05:58] LABS: BUN/Creatinine Ratio 21.8 (10.0-20.0); Blood Urea Nitrogen 54 mg/dL (9-23); Glucose 121 mg/dL (74-106)
[2024-01-12 06:41] LABS: Basophils # (auto) 0 10 ^3/uL (0-0.2); Hematocrit 35.4 % (36.0-46.0); Lymphocytes # (auto) 0.8 10 ^3/uL (0.4-5.4); Monocytes # (auto) 0.7 10 ^3/uL (0-1.3); Neutrophils # (auto) 4.3 10 ^3/uL (1.6-8.6); Neutrophils % (auto) 71.1 % (37.0-80.0)
[2024-01-12 06:43] LABS: Basophils % (auto) 0.5 % (0.0-2.0); Eosinophils # (auto) 0.3 10 ^3/uL (0-0.8); Eosinophils % (auto) 4.3 % (0.0-7.0); Hemoglobin 10.9 g/dL (12.2-16.2); Lymphocytes % (auto) 13.1 % (10.0-50.0); Mean Corpuscular Hemoglobin 31.3 pg (28.0-32.0); Mean Corpuscular Hgb Conc. 30.7 g/dL (32.0-36.0); Nucleated Red Blood Cells % 0.2 %; Red Blood Cells 3.47 10^6/uL (4.0-5.20); Red Cell Distribution Width 17.4 % (11.8-14.3)
[2024-01-12] MEDS: MEROPENEM 500MG IVPB 50 ML IV SCH (10:00)
[2024-01-12] MEDS: SODIUM CHLORIDE 0.9% 500 ML IV ONE (22:08)
[2024-01-12] MEDS: ALBUMIN 25% 50 ML IV ONE (22:09)
[2024-01-13] VITALS (89 sets, daily range): BP systolic 80–159; BP diastolic 34–120; PULSE 66–114; RESP 10–36; TEMP 97.6–98.9; O2SAT 89–99
[2024-01-13] MEDS: PHENYLEPHRINE IV 250 ML IV SCH (04:42)
[2024-01-13 06:00] LABS: Chloride 106 mmol/L (98-107); Potassium 4.4 mmol/L (3.5-5.1); Sodium 137 mmol/L (136-145)
[2024-01-13 06:01] LABS: Anion Gap 6 (5-15); Carbon Dioxide 25 mmol/L (20-30)
[2024-01-13 06:06] LABS: Glucose 90 mg/dL (74-106)
[2024-01-13 06:07] LABS: BUN/Creatinine Ratio 15.1 (10.0-20.0)
[2024-01-13 06:09] LABS: Phosphorus 4.9 mg/dL (2.4-5.1)
[2024-01-13 06:11] LABS: Blood Urea Nitrogen 39 mg/dL (9-23)
[2024-01-13 07:19] LABS: Basophils # (auto) 0 10 ^3/uL (0-0.2); Basophils % (auto) 0.5 % (0.0-2.0); Eosinophils # (auto) 0.2 10 ^3/uL (0-0.8); Eosinophils % (auto) 4.1 % (0.0-7.0); Hematocrit 35.8 % (36.0-46.0); Hemoglobin 11.1 g/dL (12.2-16.2); Lymphocytes # (auto) 0.8 10 ^3/uL (0.4-5.4); Lymphocytes % (auto) 13.6 % (10.0-50.0); Mean Corpuscular Hemoglobin 31.5 pg (28.0-32.0); Mean Corpuscular Hgb Conc. 31.1 g/dL (32.0-36.0); Mean Corpuscular Volume 101.6 fL (80.0-100.0); Monocytes # (auto) 0.6 10 ^3/uL (0-1.3); Monocytes % (auto) 10.6 % (0.0-12.0); Neutrophils # (auto) 4.3 10 ^3/uL (1.6-8.6); Neutrophils % (auto) 71.2 % (37.0-80.0); Nucleated Red Blood Cells % 0.2 %; Red Blood Cells 3.52 10^6/uL (4.0-5.20); Red Cell Distribution Width 16.9 % (11.8-14.3)
[2024-01-13] MEDS: ALBUMIN 25% 100 ML IV SCH (12:08)
[2024-01-13] MEDS: GABAPENTIN 300 MG CAP PO SCH (12:08)
[2024-01-13] MEDS: MIDODRINE HCL 10 MG TAB PO SCH (12:09)
[2024-01-13] MEDS: ERGOCALCIFEROL 50,000 UNIT(1.25MG) CAP PO SCH (12:33)
[2024-01-14] VITALS (64 sets, daily range): BP systolic 94–176; BP diastolic 31–83; PULSE 62–83; RESP 10–27; TEMP 97.1–98.3; O2SAT 92–98
[2024-01-14 05:17] LABS: Chloride 106 mmol/L (98-107); Potassium 3.8 mmol/L (3.5-5.1); Sodium 139 mmol/L (136-145)
[2024-01-14 05:18] LABS: Anion Gap 5 (5-15); Calcium 8.6 mg/dL (8.5-10.1); Carbon Dioxide 28 mmol/L (20-30)
[2024-01-14 05:23] LABS: BUN/Creatinine Ratio 20.6 (10.0-20.0); Glucose 116 mg/dL (74-106)
[2024-01-14 05:26] LABS: Blood Urea Nitrogen 52 mg/dL (9-23)
[2024-01-14 14:45] LABS: COVID19 ANTIGEN SOFIA FIA NEGATIVE (NEGATIVE)
== END 2024-01-14 18:10 | DRG 871 ==
LOC: EDBD 16:47 → ER 16:47 → TELE 22:17 → TELE-WESTW 23:56 → TELE-EAST 01-09 00:20 → TELE 01-09 03:24 → DOU IN ICU 01-11 16:35 → ICU CENTRL 01-13 19:18
PROVIDERS: ADMIT Nurse Practitioner Family; ATTEND Family Medicine
PROC: 5A0935A Assistance with Respiratory Ventilation, Less than 24 Consecutive Hours, High Flow/Velocity Cannula (ICD-10-PCS; 2024-01-09)
PROC: 02HV33Z Insertion of Infusion Device into Superior Vena Cava, Percutaneous Approach (ICD-10-PCS; principal; 2024-01-10)
PROC: B548ZZA Ultrasonography of Superior Vena Cava, Guidance (ICD-10-PCS; 2024-01-10)
PROC: 5A09357 Assistance with Respiratory Ventilation, Less than 24 Consecutive Hours, Continuous Positive Airway Pressure (ICD-10-PCS; 2024-01-11)
PROC: 5A0935A Assistance with Respiratory Ventilation, Less than 24 Consecutive Hours, High Flow/Velocity Cannula (ICD-10-PCS; 2024-01-11)
PROC: 5A09357 Assistance with Respiratory Ventilation, Less than 24 Consecutive Hours, Continuous Positive Airway Pressure (ICD-10-PCS; 2024-01-13)
DX: A41.9 Sepsis, unspecified organism (principal); I21.A1 Myocardial infarction type 2; I50.33 Acute on chronic diastolic (congestive) heart failure; J96.21 Acute and chronic respiratory failure with hypoxia; J96.22 Acute and chronic respiratory failure with hypercapnia; N17.0 Acute kidney failure with tubular necrosis; N39.0 Urinary tract infection, site not specified; E44.0 Moderate protein-calorie malnutrition; E66.2 Morbid (severe) obesity with alveolar hypoventilation; I13.0 Hypertensive heart and chronic kidney disease with heart failure and stage 1 through stage 4 chronic kidney disease, or unspecified chronic kidney disease; L03.90 Cellulitis, unspecified; N18.4 Chronic kidney disease, stage 4 (severe); Z68.43 Body mass index [BMI] 50.0-59.9, adult; Z20.822 Contact with and (suspected) exposure to COVID-19; I27.20 Pulmonary hypertension, unspecified; E87.5 Hyperkalemia; E11.22 Type 2 diabetes mellitus with diabetic chronic kidney disease; D63.1 Anemia in chronic kidney disease; E78.00 Pure hypercholesterolemia, unspecified; E83.39 Other disorders of phosphorus metabolism; E88.09 Other disorders of plasma-protein metabolism, not elsewhere classified; J44.89 Other specified chronic obstructive pulmonary disease; N20.0 Calculus of kidney; R62.7 Adult failure to thrive; Z79.899 Other long term (current) drug therapy; Z79.82 Long term (current) use of aspirin; Z74.01 Bed confinement status; Z91.018 Allergy to other foods; Z88.6 Allergy status to analgesic agent; Z88.0 Allergy status to penicillin; Z83.3 Family history of diabetes mellitus; Z51.5 Encounter for palliative care
CPT/HCPCS: 36415; 36569; 36600; 71045; 76775; 80048; 80053; 80202; 81001; 82040; 82306; 82565; 82570; 82805; 82962; 83036; 83605; 83735; 83880; 83970; 84100; 84132; 84156; 84300; 84484; 85007; 85025; 85027; 85610; 85730; 87040; 87077; 87081; 87086; 87186; 87426; 93005; 93306; 93970; 94644; 94660; 96361; 96365; 96375; 96376; 99291; G0378; J1815; J1956; J2001; J2185; J7060; P9047

== ENCOUNTER 2024-01-18 18:19 | Inpatient (IN) | payer OTHER, MEDICARE ==
[~2024-01-18] VITALS: Ht 195.6 cm; Wt 102.0 kg
[~2024-01-18 18:19] MED LIST changes: -NYST150P2 XX
[2024-01-18 19:32] LABS: Basophils # (auto) 0 10 ^3/uL (0-0.2); Basophils % (auto) 0.6 % (0.0-2.0); Eosinophils # (auto) 0.1 10 ^3/uL (0-0.8); Eosinophils % (auto) 0.7 % (0.0-7.0); Hematocrit 38.3 % (36.0-46.0); Hemoglobin 11.3 g/dL (12.2-16.2); Lymphocytes # (auto) 0.9 10 ^3/uL (0.4-5.4); Lymphocytes % (auto) 11.6 % (10.0-50.0); Mean Corpuscular Hemoglobin 29.9 pg (28.0-32.0); Mean Corpuscular Hgb Conc. 29.4 g/dL (32.0-36.0); Mean Corpuscular Volume 101.6 fL (80.0-100.0); Monocytes # (auto) 0.7 10 ^3/uL (0-1.3); Monocytes % (auto) 8.5 % (0.0-12.0); Neutrophils # (auto) 6.1 10 ^3/uL (1.6-8.6); Neutrophils % (auto) 78.6 % (37.0-80.0); Nucleated Red Blood Cells % 0.2 %; Red Blood Cells 3.77 10^6/uL (4.0-5.20); Red Cell Distribution Width 17.2 % (11.8-14.3); White Blood Cell 7.7 10^3/uL (4.4-10.8)
[2024-01-18 19:35] VITALS: PULSE 77; RESP 15; O2SAT 92
[2024-01-18 19:53] LABS: Alanine Aminotransferase 10 U/L (7-40); Alkaline Phosphatase 74 U/L (46-116); Anion Gap 8 (5-15); Aspartate Aminotransferase 14 U/L (13-40); BUN/Creatinine Ratio 24.5 (10.0-20.0); Calcium 9.1 mg/dL (8.7-10.4); Carbon Dioxide 27 mmol/L (20-30); Chloride 104 mmol/L (98-107); Glucose 87 mg/dL (74-106); Magnesium 2.3 mg/dL (1.6-2.6); Potassium 4.2 mmol/L (3.5-5.1); Sodium 139 mmol/L (136-145)
[2024-01-18 19:54] LABS: Albumin 3.1 g/dL (3.2-4.8); Bilirubin, Total 0.2 mg/dL (0.2-1.0); Total Protein 5.3 g/dL (5.7-8.2)
[2024-01-18 20:11] LABS: Blood Urea Nitrogen 85 mg/dL (9-23)
[2024-01-18 20:16] LABS: Urine Bacteria FEW /hpf (None Seen); Urine Blood 1+ /uL (Negative); Urine Clarity HAZY (Clear); Urine Color Yellow (Yellow); Urine Hyaline Cast FEW /lpf (0 - 2); Urine Protein, UAD 3+ (Negative); Urine Specific Gravity 1.021 (1.001-1.035); Urine Urobilinogen Normal (Negative); Urine WBC 26 /hpf (0 - 5); Urine pH 5.5 (5.0-8.0)
[2024-01-19 00:04] LABS: COVID19 ANTIGEN SOFIA FIA NEGATIVE (NEGATIVE)
[2024-01-19] MEDS ORDERED: NITROGLYCERIN 0.4 MG SL TAB SL PRN (02:30)
[2024-01-19] MEDS ORDERED: MORPHINE SULFATE INJ 2 MG/ml SYRG IV PRN (02:30)
[2024-01-19] MEDS ORDERED: DEXTROSE (50%) 50ML SYRG IV PRN (02:30)
[2024-01-19] MEDS ORDERED: ONDANSETRON HCL 4 MG/2 ML VIAL IV PRN (02:30)
[2024-01-19] MEDS: cefTRIAXone SOD 1,000 MG VL ONE (02:56)
[2024-01-19] MEDS: cefTRIAXone 2GM/50ML D5W 50 ML IV ONE (02:56)
[2024-01-19] MEDS: GABAPENTIN 300 MG CAP PO SCH (06:16)
[2024-01-19] MEDS: ACCU-CHEK COMFORT CURVE STRIP VI SCH (06:30)
[2024-01-19] MEDS: InsuLIN REG 1unit/0.01ml Soln (100units/ml) SC SCH (06:30)
[2024-01-19] MEDS: amLODIPine BESYLATE 5 MG TAB PO SCH (10:00)
[2024-01-19] MEDS ORDERED: ASPirin 81 mg TAB PO SCH (10:00)
[2024-01-19] MEDS: METOPROLOL SUCCINATE XL 50 MG TAB PO SCH (10:00)
[2024-01-19] MEDS: MEROPENEM 500MG IVPB 50 ML IV SCH (10:18)
[2024-01-19] MEDS: ACETAMINOPHEN 325 MG TAB PO PRN (14:58)
[2024-01-19] MEDS: ALBUMIN 25% 50 ML IV SCH (15:55)
[2024-01-19] MEDS: FUROSEMIDE 40 MG/4 ML VIAL IV SCH (17:05)
[2024-01-19 19:30] VITALS: PULSE 71; RESP 15; O2SAT 93
[2024-01-19] MEDS: ATORVASTATIN 20 MG TAB PO SCH (22:01)
[2024-01-20] MEDS ORDERED: cefTRIAXone 1GM/50ML D5W 50 ML IV SCH (03:00)
[2024-01-20 05:05] LABS: Anion Gap 9 (5-15); Carbon Dioxide 23 mmol/L (20-30); Chloride 105 mmol/L (98-107); Eosinophils # (auto) 0.1 10 ^3/uL (0-0.8); Hemoglobin 11.4 g/dL (12.2-16.2); Lymphocytes # (auto) 0.8 10 ^3/uL (0.4-5.4); Neutrophils # (auto) 7.6 10 ^3/uL (1.6-8.6); Potassium 4.2 mmol/L (3.5-5.1); Sodium 137 mmol/L (136-145); White Blood Cell 9.1 10^3/uL (4.4-10.8)
[2024-01-20 05:06] LABS: Calcium 8.9 mg/dL (8.7-10.4)
[2024-01-20 05:08] LABS: Basophils # (auto) 0.1 10 ^3/uL (0-0.2); Basophils % (auto) 0.7 % (0.0-2.0); Eosinophils % (auto) 1.4 % (0.0-7.0); Hematocrit 38.1 % (36.0-46.0); Lymphocytes % (auto) 8.5 % (10.0-50.0); Mean Corpuscular Hemoglobin 30.6 pg (28.0-32.0); Mean Corpuscular Hgb Conc. 29.9 g/dL (32.0-36.0); Mean Corpuscular Volume 102.2 fL (80.0-100.0); Monocytes # (auto) 0.5 10 ^3/uL (0-1.3); Monocytes % (auto) 5.7 % (0.0-12.0); Neutrophils % (auto) 83.7 % (37.0-80.0); Nucleated Red Blood Cells % 0.2 %; Red Blood Cells 3.73 10^6/uL (4.0-5.20); Red Cell Distribution Width 16.5 % (11.8-14.3)
[2024-01-20 05:11] LABS: BUN/Creatinine Ratio 15.5 (10.0-20.0); Glucose 69 mg/dL (74-106)
[2024-01-20 05:19] LABS: Blood Urea Nitrogen 57 mg/dL (9-23)
[2024-01-20 06:05] VITALS: O2SAT 94
[2024-01-20 07:30] VITALS: PULSE 79; RESP 18; O2SAT 95
[2024-01-20] MEDS: FUROSEMIDE INJECTION 100 MG in SODIUM CHL 0.9% 100 ML IV SCH (16:34)
[2024-01-20 19:25] VITALS: PULSE 81; RESP 18; O2SAT 94
[2024-01-20 23:42] VITALS: BP 113/52; PULSE 81; RESP 16; TEMP 97.7; O2SAT 91
[2024-01-21] VITALS (12 sets, daily range): BP systolic 109–138; BP diastolic 42–54; PULSE 70–85; RESP 16–23; TEMP 97.5–98.9; O2SAT 91–95
[2024-01-21 09:49] LABS: Anion Gap 6 (5-15); Calcium 8.4 mg/dL (8.5-10.1); Carbon Dioxide 26 mmol/L (20-30); Chloride 105 mmol/L (98-107); Potassium 4.2 mmol/L (3.5-5.1); Sodium 137 mmol/L (136-145)
[2024-01-21 09:55] LABS: BUN/Creatinine Ratio 19.8 (10.0-20.0); Glucose 80 mg/dL (74-106)
[2024-01-21] MEDS ORDERED: ZOLPIDEM TARTRATE 5 MG TAB PO PRN (10:00)
[2024-01-21 10:08] LABS: Blood Urea Nitrogen 76 mg/dL (9-23)
[2024-01-21 12:12] LABS: Base Excess -4.1 mmol/L (-2.0-2.0)
[2024-01-21] MEDS: FUROSEMIDE INJECTION 100 MG in SODIUM CHL 0.9% 100 ML IV SCH (17:31)
[2024-01-21] MEDS: HEPARIN SODIUM (PORCINE) 5000 UNITS/ML 1ML VIAL SC SCH (21:37)
[2024-01-22] VITALS (20 sets, daily range): BP systolic 92–132; BP diastolic 37–61; PULSE 69–126; RESP 17–27; TEMP 97.9–98.2; O2SAT 87–97
[2024-01-22 08:42] LABS: Chloride 106 mmol/L (98-107); Sodium 138 mmol/L (136-145)
[2024-01-22 08:43] LABS: Anion Gap 4 (5-15); Calcium 8.4 mg/dL (8.5-10.1); Carbon Dioxide 28 mmol/L (20-30)
[2024-01-22 08:48] LABS: BUN/Creatinine Ratio 22.7 (10.0-20.0); Glucose 79 mg/dL (74-106)
[2024-01-22 08:49] LABS: Base Excess -3.5 mmol/L (-2.0-2.0)
[2024-01-22 09:02] LABS: Blood Urea Nitrogen 83 mg/dL (9-23)
[2024-01-22] MEDS: HEPARIN SODIUM (PORCINE) 5000 UNITS/ML 1ML VIAL IV ONE ×2 (10:15→11:32)
[2024-01-22 10:22] LABS: Basophils # (auto) 0.1 10 ^3/uL (0-0.2); Eosinophils # (auto) 0.2 10 ^3/uL (0-0.8); Hemoglobin 9.9 g/dL (12.2-16.2); Lymphocytes # (auto) 0.9 10 ^3/uL (0.4-5.4); Monocytes # (auto) 0.6 10 ^3/uL (0-1.3); Neutrophils % (auto) 68.3 % (37.0-80.0); Nucleated Red Blood Cells % 0.2 %
[2024-01-22 10:24] LABS: Basophils % (auto) 1.3 % (0.0-2.0); Hematocrit 32.2 % (36.0-46.0); Mean Corpuscular Hemoglobin 31.1 pg (28.0-32.0); Mean Corpuscular Hgb Conc. 30.8 g/dL (32.0-36.0); Mean Corpuscular Volume 101.2 fL (80.0-100.0); Monocytes % (auto) 10.4 % (0.0-12.0); Neutrophils # (auto) 3.7 10 ^3/uL (1.6-8.6); Red Blood Cells 3.18 10^6/uL (4.0-5.20); Red Cell Distribution Width 16.9 % (11.8-14.3); White Blood Cell 5.4 10^3/uL (4.4-10.8)
[2024-01-22 10:59] LABS: INR 1.09 (0.9-1.15); Partial Thromboplastin Time 36.8 SEC (24.5-34.5); Prothrombin Time 11.4 sec (9.3-11.8)
[2024-01-22] MEDS: HEPARIN DRIP/D5W 100UNITS/ML 250 ML IV SCH ×2 (12:52→20:28)
[2024-01-22 19:49] LABS: INR 1.09 (0.9-1.15); Partial Thromboplastin Time 48.5 SEC (24.5-34.5); Prothrombin Time 11.4 sec (9.3-11.8)
[2024-01-22] MEDS: FUROSEMIDE INJECTION 100 MG in SODIUM CHL 0.9% 100 ML IV SCH (20:03)
[2024-01-23] VITALS (11 sets, daily range): BP systolic 113–122; BP diastolic 43–46; PULSE 72–84; RESP 17–20; TEMP 97.3–98.2; O2SAT 92–98
[2024-01-23 03:35] LABS: Chloride 106 mmol/L (98-107); Potassium 3.7 mmol/L (3.5-5.1); Sodium 138 mmol/L (136-145)
[2024-01-23 03:37] LABS: Anion Gap 5 (5-15); Calcium 8.7 mg/dL (8.7-10.4); Carbon Dioxide 27 mmol/L (20-30)
[2024-01-23 03:42] LABS: BUN/Creatinine Ratio 24.6 (10.0-20.0); Glucose 87 mg/dL (74-106)
[2024-01-23 04:17] LABS: Blood Urea Nitrogen 81 mg/dL (9-23)
[2024-01-23 04:20] LABS: INR 1.16 (0.9-1.15); Prothrombin Time 12.1 sec (9.3-11.8)
[2024-01-23 04:21] LABS: Partial Thromboplastin Time > 139.0 SEC (24.5-34.5)
[2024-01-23] MEDS: HEPARIN DRIP/D5W 100UNITS/ML 250 ML IV SCH ×3 (05:42→22:35)
[2024-01-23 07:13] LABS: Rapid Influenza A Negative (Negative); Rapid Influenza B Negative (Negative)
[2024-01-23 10:10] LABS: Base Excess -0.6 mmol/L (-2.0-2.0)
[2024-01-23 11:57] LABS: INR 1.19 (0.9-1.15); Prothrombin Time 12.4 sec (9.3-11.8)
[2024-01-23 11:59] LABS: Partial Thromboplastin Time > 139.0 SEC (24.5-34.5)
[2024-01-23 21:21] LABS: INR 1.22 (0.9-1.15); Prothrombin Time 12.6 sec (9.3-11.8)
[2024-01-23 21:23] LABS: Partial Thromboplastin Time > 139.0 SEC (24.5-34.5)
[2024-01-24] VITALS (10 sets, daily range): BP systolic 102–123; BP diastolic 34–51; PULSE 74–81; RESP 14–20; TEMP 97.6–97.9; O2SAT 94–98
[2024-01-24 05:32] LABS: Basophils # (auto) 0.1 10 ^3/uL (0-0.2); Eosinophils # (auto) 0.2 10 ^3/uL (0-0.8); Mean Corpuscular Volume 99.1 fL (80.0-100.0); Monocytes # (auto) 0.7 10 ^3/uL (0-1.3); Neutrophils # (auto) 2.9 10 ^3/uL (1.6-8.6)
[2024-01-24 05:33] LABS: Basophils % (auto) 1.2 % (0.0-2.0); Eosinophils % (auto) 4.7 % (0.0-7.0); Hemoglobin 10.1 g/dL (12.2-16.2); Lymphocytes % (auto) 20.9 % (10.0-50.0); Mean Corpuscular Hemoglobin 30.4 pg (28.0-32.0); Mean Corpuscular Hgb Conc. 30.7 g/dL (32.0-36.0); Monocytes % (auto) 14.3 % (0.0-12.0); Neutrophils % (auto) 58.9 % (37.0-80.0); Nucleated Red Blood Cells % 0.3 %; Red Blood Cells 3.33 10^6/uL (4.0-5.20); White Blood Cell 4.9 10^3/uL (4.4-10.8)
[2024-01-24 05:42] LABS: Chloride 106 mmol/L (98-107); Potassium 3.8 mmol/L (3.5-5.1); Sodium 138 mmol/L (136-145)
[2024-01-24 05:43] LABS: Anion Gap 5 (5-15); Carbon Dioxide 27 mmol/L (20-30)
[2024-01-24 05:48] LABS: BUN/Creatinine Ratio 22.8 (10.0-20.0); Glucose 87 mg/dL (74-106)
[2024-01-24 05:55] LABS: Blood Urea Nitrogen 71 mg/dL (9-23)
[2024-01-24] MEDS: HEPARIN DRIP/D5W 100UNITS/ML 250 ML IV SCH (07:36)
[2024-01-24] MEDS: APIXABAN 5 MG TAB PO SCH (11:03)
[2024-01-24 14:03] LABS: INR 1.18 (0.9-1.15); Partial Thromboplastin Time 40.5 SEC (24.5-34.5); Prothrombin Time 12.3 sec (9.3-11.8)
[2024-01-24] MEDS: MEROPENEM 1GM IVPB 50 ML IV SCH (21:34)
[2024-01-25] VITALS (9 sets, daily range): BP systolic 108–125; BP diastolic 38–59; PULSE 69–80; RESP 18–23; TEMP 97.6–97.8; O2SAT 95–98
[2024-01-25 06:33] LABS: Chloride 103 mmol/L (98-107); Sodium 137 mmol/L (136-145)
[2024-01-25 06:34] LABS: Anion Gap 6 (5-15); Calcium 8.7 mg/dL (8.7-10.4); Carbon Dioxide 28 mmol/L (20-30)
[2024-01-25 06:39] LABS: BUN/Creatinine Ratio 24.8 (10.0-20.0); Blood Urea Nitrogen 69 mg/dL (9-23); Glucose 81 mg/dL (74-106)
[2024-01-25] MEDS: MUPIROCIN 2% OINT 15gm or 22gm FOR MRSA NARES EACHNOSTRI SCH (21:45)
[2024-01-26] VITALS (9 sets, daily range): BP systolic 106–139; BP diastolic 40–52; PULSE 70–88; RESP 16–20; TEMP 97.5–98.4; O2SAT 94–98
[2024-01-26 09:45] LABS: Chloride 107 mmol/L (98-107); Potassium 3.6 mmol/L (3.5-5.1); Sodium 141 mmol/L (136-145)
[2024-01-26 09:46] LABS: Anion Gap 4 (5-15); Calcium 7.7 mg/dL (8.5-10.1); Carbon Dioxide 30 mmol/L (20-30)
[2024-01-26 09:51] LABS: BUN/Creatinine Ratio 27.3 (10.0-20.0); Glucose 82 mg/dL (74-106)
[2024-01-26 10:10] LABS: Blood Urea Nitrogen 59 mg/dL (9-23)
[2024-01-27] VITALS (11 sets, daily range): BP systolic 109–132; BP diastolic 42–52; PULSE 78–88; RESP 16–22; TEMP 97.4–98; O2SAT 90–96
[2024-01-27 07:34] LABS: COVID19 ANTIGEN SOFIA FIA NEGATIVE (NEGATIVE)
[2024-01-27 07:56] LABS: Anion Gap 3 (5-15); Carbon Dioxide 35 mmol/L (20-30); Chloride 102 mmol/L (98-107); Potassium 4.1 mmol/L (3.5-5.1); Sodium 140 mmol/L (136-145)
[2024-01-27 07:57] LABS: Calcium 8.6 mg/dL (8.5-10.1)
[2024-01-27 08:02] LABS: BUN/Creatinine Ratio 29.3 (10.0-20.0); Glucose 99 mg/dL (74-106)
[2024-01-27 08:15] LABS: Blood Urea Nitrogen 72 mg/dL (9-23)
[2024-01-27] MEDS: cefTRIAXone 1GM/50ML D5W 50 ML IV ONE (16:19)
[2024-01-28] VITALS (9 sets, daily range): BP systolic 117–142; BP diastolic 44–54; PULSE 76–93; RESP 16–22; TEMP 97.5–98.4; O2SAT 93–96
[2024-01-28 05:37] LABS: Anion Gap 3 (5-15); Carbon Dioxide 34 mmol/L (20-30); Chloride 101 mmol/L (98-107); Potassium 4.3 mmol/L (3.5-5.1); Sodium 138 mmol/L (136-145)
[2024-01-28 05:43] LABS: Glucose 119 mg/dL (74-106)
[2024-01-28 05:44] LABS: BUN/Creatinine Ratio 28.8 (10.0-20.0); Blood Urea Nitrogen 69 mg/dL (9-23)
[2024-01-28] MEDS: cefTRIAXone 1GM/50ML D5W 50 ML IV SCH (09:55)
[2024-01-29 01:00] VITALS: BP 144/55; PULSE 85; RESP 21; TEMP 98.4; O2SAT 95
[2024-01-29 04:54] LABS: Basophils # (auto) 0.1 10 ^3/uL (0-0.2); Eosinophils # (auto) 0.2 10 ^3/uL (0-0.8); Hemoglobin 10.3 g/dL (12.2-16.2); Monocytes # (auto) 0.8 10 ^3/uL (0-1.3)
[2024-01-29 04:57] LABS: Basophils % (auto) 0.9 % (0.0-2.0); Eosinophils % (auto) 3.9 % (0.0-7.0); Hematocrit 33.1 % (36.0-46.0); Lymphocytes # (auto) 1.3 10 ^3/uL (0.4-5.4); Lymphocytes % (auto) 21.1 % (10.0-50.0); Mean Corpuscular Hemoglobin 29.9 pg (28.0-32.0); Mean Corpuscular Hgb Conc. 31.1 g/dL (32.0-36.0); Mean Corpuscular Volume 96.2 fL (80.0-100.0); Monocytes % (auto) 12.7 % (0.0-12.0); Neutrophils # (auto) 3.7 10 ^3/uL (1.6-8.6); Neutrophils % (auto) 61.4 % (37.0-80.0); Red Blood Cells 3.44 10^6/uL (4.0-5.20); Red Cell Distribution Width 15.4 % (11.8-14.3)
[2024-01-29 04:59] LABS: Chloride 100 mmol/L (98-107); Potassium 4.4 mmol/L (3.5-5.1); Sodium 138 mmol/L (136-145)
[2024-01-29 05:00] VITALS: BP 129/54; PULSE 82; RESP 18; TEMP 98.7; O2SAT 97
[2024-01-29 05:00] LABS: Anion Gap 2 (5-15); Carbon Dioxide 36 mmol/L (20-30)
[2024-01-29 05:01] LABS: Calcium 8.9 mg/dL (8.7-10.4)
[2024-01-29 05:06] LABS: BUN/Creatinine Ratio 32.3 (10.0-20.0); Blood Urea Nitrogen 71 mg/dL (9-23); Glucose 141 mg/dL (74-106)
[2024-01-29 08:00] VITALS: PULSE 77; PULSE 80; RESP 16; O2SAT 96
[2024-01-29 08:45] VITALS: BP 124/55; PULSE 80; RESP 16; TEMP 97.8; O2SAT 96
[2024-01-29] MEDS: FUROSEMIDE 40 MG/4 ML VIAL IV SCH (09:39)
[2024-01-29 13:00] VITALS: BP 134/59; PULSE 82; RESP 18; TEMP 97.7; O2SAT 96
[2024-01-29 17:00] VITALS: BP 117/71; PULSE 91; RESP 18; TEMP 98; O2SAT 100
== END 2024-01-29 17:30 | DRG 871 ==
LOC: EDUNIT# 18:19 → EDBD 18:19 → ER 18:19 → TELE 01-19 02:33 → TELE-EAST 01-20 22:28
PROVIDERS: ADMIT Nurse Practitioner; ATTEND Family Medicine
PROC: 5A09357 Assistance with Respiratory Ventilation, Less than 24 Consecutive Hours, Continuous Positive Airway Pressure (ICD-10-PCS; principal; 2024-01-21)
PROC: 5A09357 Assistance with Respiratory Ventilation, Less than 24 Consecutive Hours, Continuous Positive Airway Pressure (ICD-10-PCS; 2024-01-22)
PROC: 5A09357 Assistance with Respiratory Ventilation, Less than 24 Consecutive Hours, Continuous Positive Airway Pressure (ICD-10-PCS; 2024-01-23)
DX: A41.9 Sepsis, unspecified organism (principal); G93.41 Metabolic encephalopathy; I21.A1 Myocardial infarction type 2; J96.21 Acute and chronic respiratory failure with hypoxia; I50.23 Acute on chronic systolic (congestive) heart failure; N17.0 Acute kidney failure with tubular necrosis; L03.115 Cellulitis of right lower limb; N39.0 Urinary tract infection, site not specified; N18.4 Chronic kidney disease, stage 4 (severe); I13.0 Hypertensive heart and chronic kidney disease with heart failure and stage 1 through stage 4 chronic kidney disease, or unspecified chronic kidney disease; E44.0 Moderate protein-calorie malnutrition; Z68.44 Body mass index [BMI] 60.0-69.9, adult; E87.29 Other acidosis; I82.401 Acute embolism and thrombosis of unspecified deep veins of right lower extremity; J90 Pleural effusion, not elsewhere classified; L03.116 Cellulitis of left lower limb; E66.01 Morbid (severe) obesity due to excess calories; Z20.822 Contact with and (suspected) exposure to COVID-19; E78.5 Hyperlipidemia, unspecified; E11.22 Type 2 diabetes mellitus with diabetic chronic kidney disease; E11.65 Type 2 diabetes mellitus with hyperglycemia; I27.20 Pulmonary hypertension, unspecified; J45.909 Unspecified asthma, uncomplicated; G47.33 Obstructive sleep apnea (adult) (pediatric); Z87.440 Personal history of urinary (tract) infections; Z74.01 Bed confinement status; Z83.3 Family history of diabetes mellitus; Z88.0 Allergy status to penicillin; Z91.018 Allergy to other foods; Z79.4 Long term (current) use of insulin; Z88.6 Allergy status to analgesic agent
CPT/HCPCS: 36415; 36600; 70450; 71045; 71250; 76604; 80048; 80053; 81001; 82805; 82962; 83735; 83880; 84484; 85025; 85379; 85610; 85730; 87040; 87081; 87086; 87426; 87804; 93005; 93970; 94660; G0378; J0696; J2185